=== PATIENT | female | born 1930 | race Caucasian/White ===

== ENCOUNTER 2019-03-19 19:09 | Inpatient (IN) | payer MEDICARE, OTHER ==
[~2019-03-19] VITALS: Ht 154.9 cm; Wt 62.1 kg
[2019-03-19 19:30] VITALS: BP 161/84
[2019-03-19] MEDS ORDERED: MAG HYDROX/AL HYDROX/SIMETH 30 ML ORAL.SUSP PO PRN (19:45)
[2019-03-19] MEDS ORDERED: MAGNESIUM HYDROXIDE 2,400 MG/30 ML ORAL.SUSP. PO PRN (19:45)
[2019-03-19] MEDS ORDERED: METHYL SALICYLATE/MENTHOL TOPICAL OINTMENT 57GM TUBE. TP PRN (19:45)
[2019-03-19 21:35] LABS: BASO % 1 % (0-3); EOS # 0.1 x10^3/uL (0.0-0.7); EOS % 1 % (0-3); HEMATOCRIT 37.9 % (36.0-47.0); HEMOGLOBIN 12.5 g/dL (12.0-15.5); LYMPH # 0.8 x10^3/uL (1.0-4.8); LYMPH % 15 % (24-48); MEAN CORPUSCULAR HEMOGLOBIN 32 pg (25-35); MEAN CORPUSCULAR HGB CONC 33 g/dL (31-37); MEAN CORPUSCULAR VOLUME 97 fL (79-100); MONO # 0.4 x10^3/uL (0.0-1.1); MONO % 9 % (0-9); NEUT % 75 % (31-73); PLATELET COUNT 248 x10^3/uL (140-400); RED BLOOD COUNT 3.89 x10^6/uL (3.50-5.40); RED CELL DISTRIBUTION WIDTH 13.8 % (11.5-14.5); WHITE BLOOD COUNT 5.3 x10^3/uL (4.0-11.0)
[2019-03-19 21:42] LABS: ALBUMIN 3.8 g/dL (3.4-5.0); CALCIUM 9.3 mg/dL (8.5-10.1); CREATININE 0.9 mg/dL (0.6-1.0); GFR 59.1; MAGNESIUM 2.1 mg/dL (1.8-2.4); POTASSIUM 3.5 mmol/L (3.5-5.1); TOTAL BILIRUBIN 0.4 mg/dL (0.2-1.0); TOTAL PROTEIN 7.5 g/dL (6.4-8.2)
[2019-03-19] MEDS ORDERED: MEMA10TA PO (21:46)
[2019-03-19] MEDS ORDERED: GLUC-11 PO (21:46)
[2019-03-19] MEDS ORDERED: MELA1TAB9 PO (21:46)
[2019-03-19] MEDS ORDERED: OXYB5TAB10 PO (21:46)
[2019-03-19] MEDS ORDERED: RIVA1PAT23 TD (21:46)
[2019-03-19] MEDS ORDERED: TEMA15CA PO (21:46)
[2019-03-19] MEDS ORDERED: OLAN5TAB5 PO (21:46)
[2019-03-19] MEDS ORDERED: CALC-497 PO (21:46)
[2019-03-19] MEDS ORDERED: CRESTOR5 MG PO (21:46)
[2019-03-19] MEDS ORDERED: CHOL200027 PO (21:46)
[2019-03-19] MEDS ORDERED: MV-M1TAB54 PO (21:46)
[2019-03-19] MEDS ORDERED: AMLO5TAB10 PO (21:46)
[2019-03-19] MEDS ORDERED: ASPI325T8 PO (21:46)
[2019-03-19] MEDS ORDERED: OXYB10TA7 PO (21:47)
--- NOTE | 2019-03-19 21:50 | PDOC ---
Exam Note: Sony Note: Please also refer to the separate dictated note~for this date of service dictated separately. Discussed the patient with Nursing staff reviewed the chart.~Reviewed interim history and current functioning. Reviewed vital signs,~Labs/ Radiology~and current medications noted below. Continue current treatment with the changes noted in the dictated addendum note Assessment: Labs: Laboratory Tests Test 03/19/19 21:15 White Blood Count 5.3 x10^3/uL (4.0-11.0) Red Blood Count 3.89 x10^6/uL (3.50-5.40) Hemoglobin 12.5 g/dL (12.0-15.5) Hematocrit 37.9 % (36.0-47.0) Mean Corpuscular Volume 97 fL (79-100) Mean Corpuscular Hemoglobin 32 pg (25-35) Mean Corpuscular Hemoglobin Concent 33 g/dL (31-37) Red Cell Distribution Width 13.8 % (11.5-14.5) Platelet Count 248 x10^3/uL (140-400) Neutrophils (%) (Auto) 75 % (31-73) H Lymphocytes (%) (Auto) 15 % (24-48) L Monocytes (%) (Auto) 9 % (0-9) Eosinophils (%) (Auto) 1 % (0-3) Basophils (%) (Auto) 1 % (0-3) Neutrophils # (Auto) 4.0 x10^3uL (1.8-7.7) Lymphocytes # (Auto) 0.8 x10^3/uL (1.0-4.8) L Monocytes # (Auto) 0.4 x10^3/uL (0.0-1.1) Eosinophils # (Auto) 0.1 x10^3/uL (0.0-0.7) Basophils # (Auto) 0.0 x10^3/uL (0.0-0.2) Sodium Level 140 mmol/L (136-145) Potassium Level 3.5 mmol/L (3.5-5.1) Chloride Level 100 mmol/L (98-107) Carbon Dioxide Level 27 mmol/L (21-32) Anion Gap 13 (6-14) Blood Urea Nitrogen 19 mg/dL (7-20) Creatinine 0.9 mg/dL (0.6-1.0) Estimated GFR (Cockcroft-Gault) 59.1 BUN/Creatinine Ratio 21 (6-20) H Glucose Level 134 mg/dL (70-99) H Calcium Level 9.3 mg/dL (8.5-10.1) Magnesium Level 2.1 mg/dL (1.8-2.4) Total Bilirubin 0.4 mg/dL (0.2-1.0) Aspartate Amino Transferase (AST) 19 U/L (15-37) Alanine Aminotransferase (ALT) 24 U/L (14-59) Alkaline Phosphatase 81 U/L (46-116) Total Protein 7.5 g/dL (6.4-8.2) Albumin 3.8 g/dL (3.4-5.0) Albumin/Globulin Ratio 1.0 (1.0-1.7) Current Medications: I have reviewed the current psychotropics carefully including drug interactions. Risk benefit ratio favors no change other than as noted in my dictated progress note. HECTOR AL MD Mar 19, 2019 21:50
[2019-03-19] MEDS ORDERED: SERT25TA PO (21:51)
[2019-03-19] MEDS: GLUCOSAMINE/CHOND 500/400MG CAPSULE PO SCH (22:30)
[2019-03-19] MEDS: MEMANTINE 10 MG TABLET. PO SCH (22:30)
[2019-03-19] MEDS: TEMAZEPAM 7.5 MG CAPSULE PO SCH (22:49)
[2019-03-19] MEDS: MELATONIN 3 MG TABLET PO SCH (22:49)
[2019-03-19] MEDS: traZODone 50 MG TABLET. PO PRN (22:49)
[2019-03-20] MEDS: traZODone 50 MG TABLET. PO PRN
--- NOTE | 2019-03-20 | NUR ---
Admission Note with Justification for Admission to [facility] Patient admitted to [facility] for protective oversight for emergency stabilization of acute psychiatric crisis. Pt admitted from: Hospital ER Mode of arrival: EMS Accompanied By: EMS Precipitating behaviors that initiated intake and admission:Living at independent living apartment, threatening SI, panic attacks, severe anxiety, recent of a friend, agitation and impulsive. Description of failure of out patient attempts at stabilization in previous setting list behavior and medication trials:Med adjustments family involvement. Behaviors and assessment findings upon admission: Severe anxiety yelling constantly and crying out of control. PRNS ordered and given soon after admission. Non redirectable. Plan: Admit for protective oversight for adjustment and stabilization of medications, behaviors and mood. Intense treatment regimen including groups, medication adjustments, therapy, consistent regimen for ADL's, self care, and sleep hygiene. Daily monitoring by Inpatient staff, Psychiatry, and Medical Physician.
[2019-03-20 06:33] VITALS: BP 115/70
[2019-03-20] MEDS: CALCIUM CARB/VIT D3 500/200 TABLET PO SCH (08:49)
[2019-03-20] MEDS: MEMANTINE 10 MG TABLET. PO SCH ×2 (08:49→20:16)
[2019-03-20] MEDS: MULTIVITAMIN with MINERAL TABLET. PO SCH (08:49)
[2019-03-20] MEDS: CHOLECALCIFEROL (VITAMIN D3) 1,000 UNIT TABLET PO SCH (08:50)
[2019-03-20] MEDS: SERTRALINE 25 MG TABLET. PO SCH (08:50)
[2019-03-20] MEDS: GLUCOSAMINE/CHOND 500/400MG CAPSULE PO SCH ×2 (08:50→20:16)
[2019-03-20] MEDS: ASPIRIN 325 MG TABLET PO SCH (08:50)
[2019-03-20] MEDS: OXYBUTYNIN CHLORIDE 5 MG TABLET PO SCH ×2 (08:51→20:16)
[2019-03-20] MEDS: ATORVASTATIN CALCIUM 20 MG TABLET PO SCH (08:51)
[2019-03-20] MEDS: RIVASTIGMINE 9.5MG PATCH. TD SCH (08:51)
[2019-03-20] MEDS: amLODIPine BESYLATE 5 MG TABLET PO SCH (08:51)
--- NOTE | 2019-03-20 10:54 | NUR ---
Nursing note: Pt in dining room for morning meds and assessment. She was compliant with her meds whole and cooperative with her assessment. Her only complaint is of feeling tired, but when asked, she stated she slept very well and wanted to know what kind of sleeping medication she got to make her sleep so well. Pt is preoccupied about her sleeping schedule and wanting to know what meds she is taking that are causing her to be so tired during the day. She is currently in the day room. Will continue to monitor.
--- NOTE | 2019-03-20 13:00 | NUR ---
Social work student (SWS) and pt spent 1.5 hours today on her psychosocial assessment (PSA) and addressing her requests. Before we could start on the PSA, pt was was concerned about her dentures and the hospital-issued walker. She wanted her daughter to bring her personal walker because she "didn't feel stable with this walker." SWS needed to direct pt's walker so that she did not run into the right wall--pt's and walker tended to curve towards the right when walking. Pt was particularly concerned about cleaning her dentures and SWS assisted her with getting all the cleaning materials needed. Pt appeared confused at times about the order to clean the dentures and would often repeat steps. Lastly, after both the upper and lower dentures were back in her mouth, pt asked, "Now, where are my uppers?"
[2019-03-20 13:30] LABS: THYROID STIM HORMONE (TSH) 3.385 uIU/mL (0.358-3.740)
--- NOTE | 2019-03-20 15:00 | NUR ---
SW and SWS electrical engineering intern contacted Marika at [facility] to discuss pt and pt reports. Pt reported that she wasn't going back to [facility] because "she kept threatening to hurt herself". Marika reports that she feels that pt has depression but also has Dementia. Marika reports that pt dtr has been overheard being mean to pt and making "empty threats" as a means to get her to straighten up her behaviors. Marika reports that pt dtr has notes all over the room as reminders but then pt doesn't remember what they are for. Pt was in the front office and in the dining room having a "nervous breakdown". It has gotten to the point that they had to have pt sent out for evaluation. It appears that pt dtr may need to have some education on what is appropriate to discuss with pt and the manner she discusses it. Marika reports that pt may need a higher level of care as they are [place] and cannot handle those behaviors. If pt does come back to [facility], pt dtr will need to hire other help in order to ensure pt safety and medication management as those are not available services for [place]. SW and ROBYN will continue to update [facility] during pt stay.
--- NOTE | 2019-03-20 15:32 | NUR ---
SW and SWS improvement intern left a message for pt dtrEliseo to contact SW back when available to finalize PSA and to discuss discharge options.
[2019-03-20 15:34] VITALS: BP 108/69
[2019-03-20] MEDS: MELATONIN 3 MG TABLET PO SCH (20:16)
[2019-03-20] MEDS: TEMAZEPAM 7.5 MG CAPSULE PO SCH (20:16)
--- NOTE | 2019-03-20 21:51 | PDOC ---
Exam Note: Sony Note: Please also refer to the separate dictated note~for this date of service dictated separately.~Patient seen individually. Discussed the patient with Nursing staff reviewed the chart.~Reviewed interim history and current functioning. Reviewed vital signs,~Labs/ Radiology~and current medications noted below. Continue current treatment with the changes noted in the dictated addendum note Assessment: Vital Signs/I&O: Vital Signs Date Time Temp Pulse Resp B/P (MAP) Pulse Ox O2 Delivery O2 Flow Rate FiO2 03/20/19 15:34 97.8 80 18 108/69 (82) 96 I & O 03/19/19 03/19/19 03/20/19 15:00 23:00 07:00 Intake Total 400 ml Balance 400 ml Current Medications: Meds: Current Medications Medications (Trade) Dose Ordered Sig/Mickey Route PRN Reason Start Time Stop Time Status Last Admin Dose Admin Memantine (Namenda) 10 mg BID PO 03/19/19 22:30 03/20/19 20:16 Olanzapine (ZyPREXA ZYDIS) 2.5 mg DAILY PO 03/20/19 09:00 03/20/19 08:51 Rivastigmine (Exelon) 1 patch DAILY TD 03/20/19 09:00 03/20/19 08:51 Sertraline HCl (Zoloft) 25 mg DAILY PO 03/20/19 09:00 03/20/19 08:50 Temazepam (Restoril) 22.5 mg QHS PO 03/19/19 22:30 03/20/19 20:16 Melatonin (Melatonin) 6 mg HS PO 03/19/19 22:30 03/20/19 20:16 Amlodipine Besylate (Norvasc) 5 mg DAILY PO 03/20/19 09:00 03/20/19 08:51 Aspirin (Douglas Aspirin) 325 mg DAILY PO 03/20/19 09:00 03/20/19 08:50 Calcium/Vitamin D (Oscal D 500mg/ 200uts) 1 tab DAILY PO 03/20/19 09:00 03/20/19 08:49 Vitamin D (Vitamin D3) 2,000 unit DAILY PO 03/20/19 09:00 03/20/19 08:50 Glucosamine/ Chondroitin (Glucosamine-Chondroitin 500/400mg) 1 cap BID PO 03/19/19 22:30 03/20/19 20:16 Multivitamins/ Calcium (Thera-M Plus) 1 tab DAILY PO 03/20/19 09:00 03/20/19 08:49 Oxybutynin Chloride (Ditropan) 5 mg BID PO 03/20/19 09:00 03/20/19 20:16 Atorvastatin Calcium (Lipitor) 20 mg DAILY PO 03/20/19 09:00 03/20/19 08:51 Olanzapine (ZyPREXA ZYDIS) 2.5 mg PRN Q2HR PRN PO PSYCHOSIS 03/19/19 22:15 03/19/19 22:49 Trazodone HCl (Desyrel) 50 mg PRN QHS PRN PO INSOMNIA, MAY REPEAT X1 03/19/19 22:15 03/20/19 00:00 I have reviewed the current psychotropics carefully including drug interactions. Risk benefit ratio favors no change other than as noted in my dictated progress note. HECTOR AL MD Mar 20, 2019 21:51
[2019-03-20 23:07] LABS: HEMOGLOBIN A1C 5.1 % (4.8-5.6); THYROXINE 7.4 ug/dL (4.5-12.0)
--- NOTE | 2019-03-21 01:38 | NUR ---
Nursing Note The patient was very pleasant during interactions with this nurse. The patient was curious about her medications but was compliant and was able to take them whole. 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 The patient is currently sleeping in her room.
--- NOTE | 2019-03-21 04:38 | CONS ---
DATE OF CONSULTATION: 03/20/2019 REASON FOR CONSULTATION: Medical management. HISTORY OF PRESENT ILLNESS: The patient is an 89-year-old female patient, a resident at [facility], who was seen at the [facility] Emergency Room and was [facility] with extreme anxiety, insomnia, increasing agitation, yelling out, being irritable; all this in a background of bipolar, mixed with mild cognitive impairment. PAST MEDICAL HISTORY: Significant for hyperlipidemia, hypertension, and generalized osteoarthritis. She has also vitamin D deficiency and overactive bladder. PAST SURGICAL HISTORY: Significant for bilateral cataract extraction. FAMILY HISTORY: Noncontributory. SOCIAL HISTORY: She is a resident at [facility]. She does not smoke, drinks wine occasionally. She has 3 sons and 1 daughter. 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 ALLERGIES: She is allergic to OPIOIDS AND MORPHINE ANALOGS AND RIVASTIGMINE. MEDICATIONS: She is currently on following medications; she is on rivastigmine (Exelon) 9.5 mg transdermal patch once a day, Crestor 5 mg daily, amlodipine 5 mg once a day, aspirin 325 mg once a day, sertraline 25 mg daily, olanzapine 2.5 mg daily, temazepam 22.5 mg at bedtime, Namenda 10 mg twice a day, calcium carbonate with vitamin D one tablet once a day, oxybutynin chloride (Ditropan XL) 10 mg once a day, cholecalciferol (vitamin D3) 2000 units p.o. daily, multivitamin 1 tablet once a day. She is on glucosamine/chondroitin sulfate 1 tablet twice a day, melatonin 5 mg at bedtime. REVIEW OF SYSTEMS: As per history of present illness. PHYSICAL EXAMINATION: GENERAL: When I examined her, she was sitting in a chair comfortably, in no apparent distress. She was cachectic. There was no pallor, jaundice, cyanosis or thyromegaly. No jugular venous distention. No limb edema. VITAL SIGNS: Her heart rate was 80, blood pressure was 108/69, temperature was 97.8, respiratory rate was 18 and oxygen saturation was 96% on room air. HEAD, EYES, EARS, NOSE AND THROAT: Showed normocephalic, atraumatic. NECK: Supple. HEART: Showed normal first and second heart sounds. No gallop, rub or murmur. CHEST: Clear to auscultation. No crepitation or rhonchi. ABDOMEN: Scaphoid, soft, nontender. NEUROLOGIC: She is demented, but without any obvious lateralizing sign. All her cranial nerves are intact. EXTREMITIES: She moves extremities without difficulty. She ambulates with a walker. LABORATORY DATA: Showed a white cell count of 5300, hemoglobin 12.5, hematocrit 38, MCV 97, platelet count 248,000 with normal manual differential. Serum sodium was 140, potassium 3.5, chloride 100, bicarbonate 27, anion gap of 13, BUN 19, creatinine 0.9. Estimated GFR was 59 mL per minute. Her glucose was 134, calcium was 9.3, magnesium was 2.1. Serum iron, TIBC and iron saturation were all low, consistent with anemia of chronic disease. Her total bilirubin, AST, ALT, alkaline phosphatase were normal. Total protein was 7.5, albumin was 3.8. Serum triglycerides were 55, total cholesterol 178, LDL was 88, VLDL was 11, and HDL cholesterol was 79 and cholesterol to HDL cholesterol ratio was only 2. Her vitamin B12 was 959 pg, 25-hydroxyvitamin D was high at 57.5 and TSH was normal at 3.385. Her treponema pallidum antibodies were nonreactive. IMPRESSION: In summary, this is an 89-year-old female patient, a resident at [facility], who was apparently evaluated at [facility] and was admitted to this facility on account of being extremely anxious, yelling out, irritable, agitated and had insomnia; all this in a background of bipolar, mixed with mild cognitive impairment. Medically, she seems to be stable. All her vital signs are within acceptable range. Her lab works are also within normal range. PLAN: My plan is to obviously follow all the lab works that are still pending at the time of this dictation, and make any necessary recommendation. Thank you, Dr. Ruelas, for allowing me to participate in the care of this patient. DAKSHA NLOEN MD DR: JCARLOS/angelic JOB#: [id number] / [id number]
[2019-03-21 05:52] VITALS: BP 134/67
[2019-03-21 07:00] LABS: BILIRUBIN,URINE NEG (NEG); CLARITY,URINE CLOUDY; COLOR,URINE YELLOW; GLUCOSE,URINE NEG (NEG); NITRITE,URINE NEG (NEG); UROBILINOGEN,URINE 0.2 mg/dL (0.2 mg/dL)
[2019-03-21 07:01] LABS: BACTERIA,URINE MANY /HPF (0-FEW); RBC,URINE OCC /HPF (0-2); SQUAMOUS EPITHELIAL CELL,UR FEW /LPF; WBC,URINE >40 /HPF (0-4)
[2019-03-21] MEDS: OXYBUTYNIN CHLORIDE 5 MG TABLET PO SCH ×2 (08:31→19:46)
[2019-03-21] MEDS: ATORVASTATIN CALCIUM 20 MG TABLET PO SCH (08:31)
[2019-03-21] MEDS: MEMANTINE 10 MG TABLET. PO SCH ×2 (08:31→19:46)
[2019-03-21] MEDS: CHOLECALCIFEROL (VITAMIN D3) 1,000 UNIT TABLET PO SCH (08:32)
[2019-03-21] MEDS: ASPIRIN 325 MG TABLET PO SCH (08:32)
[2019-03-21] MEDS: RIVASTIGMINE 9.5MG PATCH. TD SCH (08:32)
[2019-03-21] MEDS: MULTIVITAMIN with MINERAL TABLET. PO SCH (08:32)
[2019-03-21] MEDS: amLODIPine BESYLATE 5 MG TABLET PO SCH (08:32)
[2019-03-21] MEDS: SERTRALINE 25 MG TABLET. PO SCH (08:32)
[2019-03-21] MEDS: GLUCOSAMINE/CHOND 500/400MG CAPSULE PO SCH ×2 (08:32→19:45)
[2019-03-21] MEDS: CALCIUM CARB/VIT D3 500/200 TABLET PO SCH (08:32)
--- NOTE | 2019-03-21 09:31 | NUR ---
Patient is alert and oriented x 1-2. Pt knows own name. When asked where she was, she stated "care center". Pt knew the month but thought the year was 1950. Patient very anxious, tearful and fearful at breakfast. When talking with the defect cutter this morning, started crying. States she is very sleepy and afraid we wont let her eat. Fearful that we won't wake her if she sleeps for meals. Patient repeatedly reassured that we would wake her for meals and show her where to go, but patient kept coming back to this fear and crying. Patient did take her medications whole. Patient kept asking for a 3rd hot cocoa, staff trying to encourage her to drink her chocolate ensure but patient states, "Im too full! Ill throw up!" But continues to ask for another hot cocoa. Patient is using a walker to wheel self around unit, needs supervision with transferring. Pt has poor judgement and insight. Plan is to work with Dr Ruelas for medication management, provide emotional support and safe environment, and encourage group participation.
--- NOTE | 2019-03-21 12:45 | NUR ---
SW noted that pt dtr was here for the visiting hour. SW stopped pt and pt dtr, Eliseo, in the hallway and introduced self. Pt dtr and SW agreed that they would need to talk to one another; however, SW was headed out to have a supervision meeting with the SWS civil engineering intern. SW and pt dtr will plan on talking either later this afternoon, if not tomorrow morning.
[2019-03-21 15:52] VITALS: BP 147/77
--- NOTE | 2019-03-21 16:18 | NUR ---
RN spoke with patients daughter about patient being upset and tearful at breakfast. Patients daughter stated, "Oh I know! We've been dealing with this for years!" This afternoon patient began obsessing and getting tearful about her sleeping pill tonight. Frequently knocking on window to nursing station to tell RN that she wanted her medication at 15 til 10. Then became upset and said "I want it at 10!, repeatedly. Then started saying, "Please don't let me refuse it!!!" At one point patient said, "Im having a full blown panic attack. Pt given PRN zyprexa. 15 minutes later patient said, "I shouldn't have taken that pill!" About 30-40 minutes later, pt began crying saying, "I did it to myself, I shouldn't have taken that pill. Im too sleepy." Pt taken to her room and told that this RN would wake her for dinner.
--- NOTE | 2019-03-21 16:53 | HP ---
ADMIT DATE: 03/20/2019 PSYCHIATRIC ADMISSION HISTORY AND EVALUATION This late entry date of service 03/20/2019 covers elements not covered in my initial note of 03/20/2019. IDENTIFYING DATA: The patient is an 89-year-old female, referred to us from the Emergency Room at [facility] where she presented after making threats of wanting to jump out from a moving car or slit her wrist to end her life. Reportedly, she has been increasingly depressed with low energy, having panic attacks. She had a recent of a close friend, has been increasingly agitated, impulsive. She is not eating well and losing weight. She has failed outpatient psychiatric interventions including treatment on olanzapine and Zoloft. She has been treated outpatient at [facility] for psychiatric and medication management and psychotherapy and has failed all of this and referred for inpatient psychiatric stabilization. She had a previous history of suicide attempt by slashing her wrists about 2 weeks earlier. CHIEF COMPLAINT: "Yes, I have been depressed. I get anxious. I am getting more forgetful." HISTORY OF PRESENT ILLNESS: The patient resides at [facility] and goes to her regular outpatient psychiatric appointments. She has been getting increasingly depressed, feeling helpless, hopeless, worthless with marked panic and anxiety attacks, sleep and appetite disturbance with progressive weight loss and worsening short term memory deficits. She has had the suicidal ideation with plans, attempts as noted above. She has also had a history of mood swings and a prior diagnosis of bipolar disorder. PAST PSYCHIATRIC HISTORY: As above. MEDICAL HISTORY: Positive for hypertension. DIET: Regular. ACCU-CHEKS: None. CODE STATUS: DNR. ALLERGIES: EXELON ORAL TABLETS, NARCOTIC ANALGESICS. Ambulates with walker. CURRENT PSYCHOTROPICS: Zyprexa 2.5 mg daily, Exelon patch 9.5 mg daily, temazepam 22.5 mg at bedtime, Namenda 10 mg b.i.d. FAMILY HISTORY: Noncontributory. SOCIAL HISTORY: No history of alcohol, drug abuse, physical, sexual or elder abuse. She is not known to be a perpetrator. REACTION TO HOSPITALIZATION: The patient is accepting of it. ASSETS: Supportive family, stable living at the [facility]. REVIEW OF SYSTEMS: Ambulation impaired with walker. No CV, , pulmonary, eye system symptoms on review. MENTAL STATUS EXAMINATION: Oriented to herself and situation. She knew the year was 2019, president was president Emma, but unable to remember who was the president before him. She was unable to do serial 7's, has been anxious, tearful. Mood is depressed. Affect is mood congruent. She is also quite obsessive about her sleep disturbance and getting something to help her sleep. Attention span is short. Language function intact. No active suicidal or homicidal ideation. LABORATORY DATA: Reviewed. IMPRESSION: Major depressive disorder, recurrent; panic disorder; mild cognitive impairment versus major neurocognitive disorder; early vascular with depression; bipolar disorder, depressed. Rest as above. PLAN: Admit to Geropsychiatry Unit at [facility]. I will see the patient daily individually from a psychiatric standpoint. Medical followup by tyson Donovan. Continue patient on her current psychotropics. I was called the night of 03/19/2019 after I discussed with the patient with Jessica Corbin, study abroad coordinator, prior to that. After the patient arrived to the unit, she was extremely anxious, restless, obsessed about her sleep patterns. We did add trazodone 50 mg at bedtime p.r.n. x 1, may repeat x 1 if ineffective; and also Zyprexa 2.5 mg q. 2 hours p.r.n. psychosis, agitation, max 15 mg in 24 hours. We will make further adjustments in psychotropics as clinically indicated. ESTIMATED LENGTH OF STAY: 10-12 days. DISPOSITION: Plans back to independent living or she may perhaps need transition to assisted living. HECTOR AL MD DR: RENO/angelic JOB#: [id number] / [id number]
--- NOTE | 2019-03-21 17:54 | NUR ---
Patient had a box of exelon patches here that were hers from home. They were not on the inventory sheet, however were clearly marked as this patients. They were returned to patients daughter today when daughter was visiting during lunch, daughter took them home.
--- NOTE | 2019-03-21 18:02 | NUR ---
RN noticed a bone protruding on patients left shoulder. It appears to be collar bone, pt is moving arm just fine, states it doesn't hurt. Did have Dr Donovan to look at it, per Dr Donovan its an old healed fracture.
[2019-03-21] MEDS: MELATONIN 3 MG TABLET PO SCH (19:46)
--- NOTE | 2019-03-21 21:25 | PDOC ---
Exam Note: Sony Note: Please also refer to the separate dictated note~for this date of service dictated separately.~Patient seen individually. Discussed the patient with Nursing staff reviewed the chart.~Reviewed interim history and current functioning. Reviewed vital signs,~Labs/ Radiology~and current medications noted below. Continue current treatment with the changes noted in the dictated addendum note Assessment: Vital Signs/I&O: Vital Signs Date Time Temp Pulse Resp B/P (MAP) Pulse Ox O2 Delivery O2 Flow Rate FiO2 03/21/19 15:52 97.2 85 22 147/77 (100) 98 Room Air I & O 03/20/19 03/20/19 03/21/19 15:00 23:00 07:00 Intake Total 600 ml 340 ml Balance 600 ml 340 ml Labs: Laboratory Tests Test 03/21/19 06:07 Urine Collection Type Unknown Urine Color Yellow Urine Clarity Cloudy Urine pH 7.0 Urine Specific [place] 1.010 Urine Protein Neg (NEG-TRACE) Urine Glucose (UA) Neg mg/dL (NEG) Urine Ketones (Stick) Neg mg/dL (NEG) Urine Blood Neg (NEG) Urine Nitrite Neg (NEG) Urine Bilirubin Neg (NEG) Urine Urobilinogen Dipstick 0.2 mg/dL (0.2 mg/dL) Urine Leukocyte Esterase Small (NEG) Urine RBC Occ /HPF (0-2) Urine WBC >40 /HPF (0-4) Urine Squamous Epithelial Cells Few /LPF Urine Transitional Epithelial Cells Occ /LPF Urine Bacteria Many /HPF (0-FEW) Current Medications: I have reviewed the current psychotropics carefully including drug interactions. Risk benefit ratio favors no change other than as noted in my dictated progress note. Diagnosis: Problems: (1) Mild cognitive disorder (2) Dementia, vascular, with depression (3) Major depressive disorder, recurrent episode (4) Bipolar disorder with depression (5) Major neurocognitive disorder HECTOR AL MD Mar 21, 2019 21:25
[2019-03-22] MEDS: traZODone 50 MG TABLET. PO PRN (00:22)
--- NOTE | 2019-03-22 01:58 | NUR ---
Pt has been very labile this shift. She says she reports having anxiety and becomes tearful at times then quiets and goes to sleep. When awake she reports not having been able to sleep. She was cooperative with meds taken whole, PRN trazodone given at 0030.
[2019-03-22 06:22] VITALS: BP 154/74
[2019-03-22] MEDS: CALCIUM CARB/VIT D3 500/200 TABLET PO SCH (08:30)
[2019-03-22] MEDS: MEMANTINE 10 MG TABLET. PO SCH ×2 (08:30→20:18)
[2019-03-22] MEDS: RIVASTIGMINE 9.5MG PATCH. TD SCH (08:31)
[2019-03-22] MEDS: MULTIVITAMIN with MINERAL TABLET. PO SCH (08:31)
[2019-03-22] MEDS: GLUCOSAMINE/CHOND 500/400MG CAPSULE PO SCH ×2 (08:31→20:18)
[2019-03-22] MEDS: amLODIPine BESYLATE 5 MG TABLET PO SCH (08:31)
[2019-03-22] MEDS: ASPIRIN 325 MG TABLET PO SCH (08:31)
[2019-03-22] MEDS: ATORVASTATIN CALCIUM 20 MG TABLET PO SCH (08:31)
[2019-03-22] MEDS: SERTRALINE 25 MG TABLET. PO SCH (08:31)
[2019-03-22] MEDS: CHOLECALCIFEROL (VITAMIN D3) 1,000 UNIT TABLET PO SCH (08:31)
[2019-03-22] MEDS: OXYBUTYNIN CHLORIDE 5 MG TABLET PO SCH ×2 (08:31→20:18)
[2019-03-22 15:36] VITALS: BP 142/79
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
--- NOTE | 2019-03-22 18:34 | NUR ---
Pt up for meals. Was very anxious and voiced several times she was tired because of the sleeping pill she got with breakfast. Dtr here at lunch and was able to keep pt focused on current conversations. Prior to supper pt was becoming more anxious. Stated she felt "like her head was spinning." Pt redirected to Day room .
--- NOTE | 2019-03-22 19:15 | PN ---
DATE: 03/21/2019 PSYCHIATRIC PROGRESS NOTE This late entry 03/21/2019 covers elements not covered in my initial note. SUBJECTIVE: I met with the patient evening of 03/21/2019 and staffed at a treatment team meeting with the entire team in the morning. The patient is sleeping about 7 hours average. Appetite 75%. She has been anxious, tearful, quite labile in her mood, obsessive and depressed. On checking on orientation, she knew the year was 2019, president was president Emma. She did better in the evening. At one point, she was hallucinating at the front desk supervisor, screaming, crying. REVIEW OF SYSTEMS: Positive for impaired ambulation with walker. No CV, , pulmonary, eye, ENT system symptoms on review. MENTAL STATUS EXAM: The patient is oriented to herself and situation. Speech has some latency, coherent, can be pressured at times. Abstraction fair, computation impaired, language function intact, attention span short. Mood and affect remains anxious, labile. She is depressed, quite labile in her mood. LABORATORY DATA: Reviewed. IMPRESSION: Bipolar disorder, mixed with psychotic features; mild cognitive impairment; psychotic disorder, unspecified. PLAN: Continue current psychotropics; trazodone 50 mg at bedtime p.r.n., may repeat x 1; Namenda, Zyprexa which has been increased and Exelon patch. May consider a mood stabilizer, Depakote, depending on how she does with the initial changes. HECTOR AL MD DR: RENO/angelic JOB#: [id number] / [id number]
[2019-03-22] MEDS: MELATONIN 3 MG TABLET PO SCH ×2 (20:18→21:00)
--- NOTE | 2019-03-22 21:26 | PDOC ---
Exam Note: Sony Note: Please also refer to the separate dictated note~for this date of service dictated separately.~Patient seen individually. Discussed the patient with Nursing staff reviewed the chart.~Reviewed interim history and current functioning. Reviewed vital signs,~Labs/ Radiology~and current medications noted below. Continue current treatment with the changes noted in the dictated addendum note Assessment: Vital Signs/I&O: Vital Signs Date Time Temp Pulse Resp B/P (MAP) Pulse Ox O2 Delivery O2 Flow Rate FiO2 03/22/19 15:36 97.0 69 20 142/79 (100) 97 03/21/19 15:52 Room Air I & O 03/21/19 03/21/19 03/22/19 15:00 23:00 07:00 Intake Total 840 ml 240 ml 240 ml Balance 840 ml 240 ml 240 ml Current Medications: I have reviewed the current psychotropics carefully including drug interactions. Risk benefit ratio favors no change other than as noted in my dictated progress note. Diagnosis: Problems: (1) Major depressive disorder, recurrent episode (2) Mild cognitive disorder (3) Dementia, vascular, with depression (4) Bipolar disorder with depression (5) Major neurocognitive disorder HECTOR AL MD Mar 22, 2019 21:26
--- NOTE | 2019-03-22 23:51 | NUR ---
Patient is in the day room on assumption of care. She is pleasant and polite, but anxious about pills. She asked this scenario writer to tell her the name of each one and what they were for. She states "I don't want to get dizzy, these pills make me dizzy." This scenario writer assured her that none of the pills she was getting at that time would cause her to be dizzy, and offered to hold off on giving her the Melatonin until she was on her way to bed. She agreed. She was compliant with assessments. She spent the evening in the day room, watching a movie with some peers. After the movie was over, she went to her room and fell asleep quickly. Melatonin was held since patient was already asleep. No agitation. Denies any pain or discomfort. Denies SI.
[2019-03-23 05:17] VITALS: BP 146/77
[2019-03-23] MEDS: GLUCOSAMINE/CHOND 500/400MG CAPSULE PO SCH ×2 (08:53→19:57)
[2019-03-23] MEDS: OXYBUTYNIN CHLORIDE 5 MG TABLET PO SCH ×2 (08:53→19:57)
[2019-03-23] MEDS: amLODIPine BESYLATE 5 MG TABLET PO SCH (08:53)
[2019-03-23] MEDS: CALCIUM CARB/VIT D3 500/200 TABLET PO SCH (08:53)
[2019-03-23] MEDS: CHOLECALCIFEROL (VITAMIN D3) 1,000 UNIT TABLET PO SCH (08:54)
[2019-03-23] MEDS: MULTIVITAMIN with MINERAL TABLET. PO SCH (08:54)
[2019-03-23] MEDS: ASPIRIN 325 MG TABLET PO SCH (08:54)
[2019-03-23] MEDS: MEMANTINE 10 MG TABLET. PO SCH ×2 (08:55→19:57)
[2019-03-23] MEDS: RIVASTIGMINE 9.5MG PATCH. TD SCH (08:55)
[2019-03-23] MEDS: SERTRALINE 25 MG TABLET. PO SCH (08:55)
[2019-03-23] MEDS: ATORVASTATIN CALCIUM 20 MG TABLET PO SCH (08:55)
--- NOTE | 2019-03-23 10:34 | NUR ---
Patient compliant with medications and assessment. Patient confused believing she has not been receiving her medications for the last week. Patient reassured that she will be receiving all her medications today and during her stay here. Patient is attempting to stay awake all day until 10pm so she may get a full nights rest. Patient has no further needs at this time.
--- NOTE | 2019-03-23 11:56 | NUR ---
Activity Therapy Assessment Completed based on notes. observation, and interview. Pt. was in the day room when therapist approached. Pt. was calm, polite, and labile in her mood. Pt. uses a walker to ambulate, wears glasses, and speaks in full, clear sentences. Pt. is a strong historian: she was able to talk about her childhood, meeting her , and her four children with ease. Pt. short term memory is more limited- she needed frequent reminders and redirection to focus on the conversation at hand. Pt. often reverts to her many anxieties: her medication, getting home, calling her daughter, etc. Pt. easily redirects from these topics and calms when asked about the past. Pt. is aware she is not home and is able to state she lives at [facility] in [place]. 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 Pt. enjoys coloring, exercise groups, swimming, bowling, movies, Bingo, and attends jewish often. Pt. is often around group and engages well with some reminders and reassurance from staff and therapist. Initial goal aimed to reduce stress and increase engagement: Pt. will participate in at least five Activity Therapy groups per week. Addendum: 04/04/19 at 1048 by EMA HELLER ACT Goal changed 04/04: Pt. will participate in at least one Activity Therapy group per day
[2019-03-23 15:06] VITALS: BP 158/81
[2019-03-23] MEDS: MELATONIN 3 MG TABLET PO SCH (19:57)
--- NOTE | 2019-03-24 00:10 | PN ---
DATE: 03/23/2019 SUBJECTIVE: The patient was seen today, met with the staff, chart reviewed. Also, covering for Dr. Ruelas. Staff reports no major problems. The patient's complaints of stomach problems. The patient mainly complaining of feeling tired and weak and not able to concentrate. CURRENT MEDICATIONS: The patient's current medications include Zoloft 25 mg daily, Exelon patch daily, olanzapine 2.5 mg daily, melatonin 6 mg daily and also Namenda 10 mg b.i.d., trazodone 50 mg at night p.r.n., also olanzapine 2.5 mg q. 2 hours p.r.n. LABORATORY DATA: The patient's lab reviewed. ASSESSMENT: Major depressive disorder, recurrent; generalized anxiety disorder with panic attacks; mild cognitive disorder. JENNIFER ORTIZ MD DR: ALESSANDRA/angelic JOB#: [id number] / [id number]
--- NOTE | 2019-03-24 00:25 | NUR ---
Last evening pt was social with peer and sat in day room and watched a movie. She was cooperative with meds and has been pleasant and cooperative. No agitation or anxiety observed.
[2019-03-24 05:07] VITALS: BP 155/69
[2019-03-24] MEDS: MULTIVITAMIN with MINERAL TABLET. PO SCH (08:43)
[2019-03-24] MEDS: GLUCOSAMINE/CHOND 500/400MG CAPSULE PO SCH ×2 (08:43→20:11)
[2019-03-24] MEDS: CALCIUM CARB/VIT D3 500/200 TABLET PO SCH (08:43)
[2019-03-24] MEDS: amLODIPine BESYLATE 5 MG TABLET PO SCH (08:43)
[2019-03-24] MEDS: CHOLECALCIFEROL (VITAMIN D3) 1,000 UNIT TABLET PO SCH (08:43)
[2019-03-24] MEDS: ASPIRIN 325 MG TABLET PO SCH (08:43)
[2019-03-24] MEDS: MEMANTINE 10 MG TABLET. PO SCH ×2 (08:43→20:10)
[2019-03-24] MEDS: ATORVASTATIN CALCIUM 20 MG TABLET PO SCH (08:43)
[2019-03-24] MEDS: OXYBUTYNIN CHLORIDE 5 MG TABLET PO SCH ×2 (08:43→20:10)
[2019-03-24] MEDS: SERTRALINE 25 MG TABLET. PO SCH (08:43)
[2019-03-24] MEDS: RIVASTIGMINE 9.5MG PATCH. TD SCH (08:44)
--- NOTE | 2019-03-24 09:14 | NUR ---
Patient compliant with medications and assessment. Patient confused believing she took her sleeping pill this morning. Patient states she wants to nap since she has been up all night. Patient has no further needs at this time.
--- NOTE | 2019-03-24 13:34 | PN ---
DATE: 03/24/2019 SUBJECTIVE: The patient was seen today, met with the staff, chart reviewed. The patient's behavior remains the same, withdrawn, isolated, having problems with sleep and also feeling angry. OBSERVATION: VITAL SIGNS: Temperature 98.4, blood pressure 155/69, pulse 72, respirations 22, O2 sat 95%. The patient slept about 3-1/2 hours last night. The patient's appetite is fair. MEDICATIONS: The patient's current medications include Zoloft 25 mg daily, Exelon patch daily, olanzapine 2.5 mg daily, melatonin 6 mg daily, Namenda 10 mg b.i.d. The patient is also on p.r.n. trazodone and olanzapine. LABORATORY DATA: The patient's lab reviewed. ASSESSMENT: Major depressive disorder, recurrent, generalized anxiety disorder with panic attacks and mild cognitive disorder. PLAN: Continue with the current treatment plan. LENGTH OF STAY: 5-7 days. JENNIFER ORTIZ MD DR: ALESSANDRA/angelic JOB#: [id number] / [id number]
[2019-03-24 14:17] LABS: BASO # 0.1 x10^3/uL (0.0-0.2); BASO % 1 % (0-3); EOS # 0.1 x10^3/uL (0.0-0.7); EOS % 1 % (0-3); HEMATOCRIT 34.5 % (36.0-47.0); HEMOGLOBIN 11.5 g/dL (12.0-15.5); LYMPH # 0.7 x10^3/uL (1.0-4.8); LYMPH % 11 % (24-48); MEAN CORPUSCULAR HEMOGLOBIN 32 pg (25-35); MEAN CORPUSCULAR HGB CONC 33 g/dL (31-37); MEAN CORPUSCULAR VOLUME 97 fL (79-100); MONO # 0.5 x10^3/uL (0.0-1.1); MONO % 8 % (0-9); NEUT # 5.1 x10^3uL (1.8-7.7); NEUT % 79 % (31-73); PLATELET COUNT 245 x10^3/uL (140-400); RED BLOOD COUNT 3.56 x10^6/uL (3.50-5.40); RED CELL DISTRIBUTION WIDTH 14.4 % (11.5-14.5); WHITE BLOOD COUNT 6.5 x10^3/uL (4.0-11.0)
[2019-03-24 14:31] LABS: ALBUMIN 3.5 g/dL (3.4-5.0); ALBUMIN/GLOBULIN RATIO 1.1 (1.0-1.7); CALCIUM 9.5 mg/dL (8.5-10.1); GFR 52.3; POTASSIUM 4.1 mmol/L (3.5-5.1); TOTAL BILIRUBIN 0.2 mg/dL (0.2-1.0); TOTAL PROTEIN 6.8 g/dL (6.4-8.2)
[2019-03-24 15:20] VITALS: BP 96/59
[2019-03-24] MEDS: MELATONIN 3 MG TABLET PO SCH (21:15)
--- NOTE | 2019-03-24 22:00 | NUR ---
Patient is in the day room on assumption of care. She is calm, cooperative and compliant with medications and assessments. No agitation. Denies pain or discomfort. Denies SI.
[2019-03-25 06:41] VITALS: BP 171/73
[2019-03-25] MEDS: ASPIRIN 325 MG TABLET PO SCH (08:28)
[2019-03-25] MEDS: OXYBUTYNIN CHLORIDE 5 MG TABLET PO SCH ×2 (08:29→21:06)
[2019-03-25] MEDS: MEMANTINE 10 MG TABLET. PO SCH ×2 (08:29→21:05)
[2019-03-25] MEDS: amLODIPine BESYLATE 5 MG TABLET PO SCH (08:29)
[2019-03-25] MEDS: GLUCOSAMINE/CHOND 500/400MG CAPSULE PO SCH ×2 (08:29→21:05)
[2019-03-25] MEDS: ATORVASTATIN CALCIUM 20 MG TABLET PO SCH (08:29)
[2019-03-25] MEDS: CALCIUM CARB/VIT D3 500/200 TABLET PO SCH (08:30)
[2019-03-25] MEDS: CHOLECALCIFEROL (VITAMIN D3) 1,000 UNIT TABLET PO SCH (08:30)
[2019-03-25] MEDS: MULTIVITAMIN with MINERAL TABLET. PO SCH (08:30)
[2019-03-25] MEDS: SERTRALINE 25 MG TABLET. PO SCH (08:30)
[2019-03-25] MEDS: RIVASTIGMINE 9.5MG PATCH. TD SCH (08:30)
--- NOTE | 2019-03-25 10:56 | NUR ---
Pt is compliant with her medication and assessment. She anxious AEB pacing the halls, going in and out of her room, frequently asking to call her daughter to ask her about alarms. PRN zyprexa zydis given. No agitation or aggression at this time.
--- NOTE | 2019-03-25 13:05 | NUR ---
SELINA caught pt dtr, Eliseo, off the unit after visiting to discuss the voicemail of Eliseo wanting to participate in tx team. SELINA informed Eliseo that she could either come in person or do via phone. Eliseo reports that she is heading to [place] and believes that via phone will be best. SELINA informed her to expect a phone call between 9 and 10 AM. Pt dtr reports that the visit today did not go well as pt had a panic attack and is hopeful that continued medication changes will help get her back to where she needs to be.
[2019-03-25] MEDS: ONDANSETRON ODT 4 MG TAB.RAPDIS PO PRN (13:20)
[2019-03-25 13:23] LABS: BASO % 1 % (0-3); EOS # 0.1 x10^3/uL (0.0-0.7); EOS % 1 % (0-3); HEMATOCRIT 36.1 % (36.0-47.0); LYMPH # 0.9 x10^3/uL (1.0-4.8); LYMPH % 13 % (24-48); MEAN CORPUSCULAR HEMOGLOBIN 32 pg (25-35); MEAN CORPUSCULAR HGB CONC 33 g/dL (31-37); MEAN CORPUSCULAR VOLUME 97 fL (79-100); MONO # 0.5 x10^3/uL (0.0-1.1); MONO % 7 % (0-9); NEUT # 5.6 x10^3uL (1.8-7.7); NEUT % 78 % (31-73); PLATELET COUNT 256 x10^3/uL (140-400); RED BLOOD COUNT 3.71 x10^6/uL (3.50-5.40); RED CELL DISTRIBUTION WIDTH 14.2 % (11.5-14.5); WHITE BLOOD COUNT 7.2 x10^3/uL (4.0-11.0)
[2019-03-25 13:31] LABS: ALBUMIN 3.7 g/dL (3.4-5.0); ALBUMIN/GLOBULIN RATIO 1.1 (1.0-1.7); CALCIUM 9.5 mg/dL (8.5-10.1); CREATININE 0.8 mg/dL (0.6-1.0); GFR 67.7; POTASSIUM 4.2 mmol/L (3.5-5.1); TOTAL BILIRUBIN 0.3 mg/dL (0.2-1.0); TOTAL PROTEIN 7.2 g/dL (6.4-8.2)
--- NOTE | 2019-03-25 13:32 | NUR ---
During lunch pt began dry heaving and coughing up large amounts of thick sputum. Daughter Eliseo arrived at this time. Pt was removed from the dining room and taken to her room. While in her room pt continued to cough and dry heave, pt produced whole strawberries. VS: 125/72, 98.7, 92, 22, 95% Pt then stated "I'm having a panic attack. I'm panicking!" Nurse, BODY SHOP FLOORPERSON, and daughter coached pt through with deep breathing techniques and daughter then read a bible story to pt. Pt continues to dry heave at times. Staff and daughter talk pt through using deep breathing techniques. Dr. Donovan paged and informed of event. New orders for cbc, cmp, lactic acid, cxr, zofran 4mg q4 hours prn. Pt escorted to dayroom by daughter and needed much encouragement to use her walker and attend group.
--- NOTE | 2019-03-25 14:13 | RAD ---
PA and lateral views of the chest. Comparison: None. Indication: Possible aspiration Findings: Peripherally calcified breast implants are identified. There is cervical fusion hardware identified. Dentures appear in place. The heart size is normal. No pneumothorax or effusion. No air space or interstitial disease. The bony structures are intact. Rotator cuff anchors identified in the right shoulder. Impression: 1. No acute cardiopulmonary process. 2. Findings suggest COPD. Electronically signed by: Wilber Davis MD (03/25/2019 2:10 PM) [facility]
--- NOTE | 2019-03-25 15:14 | NUR ---
Eliseo WILSON informed of lab and XRAY results.
[2019-03-25 15:24] VITALS: BP 118/70
[2019-03-25] MEDS: DIVALPROEX 125 MG CAP.SPRINK PO SCH (21:05)
[2019-03-25] MEDS: MELATONIN 3 MG TABLET PO SCH (21:06)
--- NOTE | 2019-03-25 21:21 | PDOC ---
Exam Note: Sony Note: Please also refer to the separate dictated note~for this date of service dictated separately.~Patient seen individually. Discussed the patient with Nursing staff reviewed the chart.~Reviewed interim history and current functioning. Reviewed vital signs,~Labs/ Radiology~and current medications noted below. Continue current treatment with the changes noted in the dictated addendum note Assessment: Vital Signs/I&O: Vital Signs Date Time Temp Pulse Resp B/P (MAP) Pulse Ox O2 Delivery O2 Flow Rate FiO2 03/25/19 15:24 98.5 69 16 118/70 (86) 96 03/23/19 05:17 Room Air I & O 03/24/19 03/24/19 03/25/19 15:00 23:00 07:00 Intake Total 600 ml 360 ml Balance 600 ml 360 ml Labs: Laboratory Tests Test 03/25/19 13:05 White Blood Count 7.2 x10^3/uL (4.0-11.0) Red Blood Count 3.71 x10^6/uL (3.50-5.40) Hemoglobin 12.0 g/dL (12.0-15.5) Hematocrit 36.1 % (36.0-47.0) Mean Corpuscular Volume 97 fL (79-100) Mean Corpuscular Hemoglobin 32 pg (25-35) Mean Corpuscular Hemoglobin Concent 33 g/dL (31-37) Red Cell Distribution Width 14.2 % (11.5-14.5) Platelet Count 256 x10^3/uL (140-400) Neutrophils (%) (Auto) 78 % (31-73) H Lymphocytes (%) (Auto) 13 % (24-48) L Monocytes (%) (Auto) 7 % (0-9) Eosinophils (%) (Auto) 1 % (0-3) Basophils (%) (Auto) 1 % (0-3) Neutrophils # (Auto) 5.6 x10^3uL (1.8-7.7) Lymphocytes # (Auto) 0.9 x10^3/uL (1.0-4.8) L Monocytes # (Auto) 0.5 x10^3/uL (0.0-1.1) Eosinophils # (Auto) 0.1 x10^3/uL (0.0-0.7) Basophils # (Auto) 0.0 x10^3/uL (0.0-0.2) Sodium Level 138 mmol/L (136-145) Potassium Level 4.2 mmol/L (3.5-5.1) Chloride Level 99 mmol/L (98-107) Carbon Dioxide Level 27 mmol/L (21-32) Anion Gap 12 (6-14) Blood Urea Nitrogen 20 mg/dL (7-20) Creatinine 0.8 mg/dL (0.6-1.0) Estimated GFR (Cockcroft-Gault) 67.7 BUN/Creatinine Ratio 25 (6-20) H Glucose Level 103 mg/dL (70-99) H Lactic Acid Level 0.8 mmol/L (0.4-2.0) Calcium Level 9.5 mg/dL (8.5-10.1) Total Bilirubin 0.3 mg/dL (0.2-1.0) Aspartate Amino Transferase (AST) 22 U/L (15-37) Alanine Aminotransferase (ALT) 26 U/L (14-59) Alkaline Phosphatase 79 U/L (46-116) Total Protein 7.2 g/dL (6.4-8.2) Albumin 3.7 g/dL (3.4-5.0) Albumin/Globulin Ratio 1.1 (1.0-1.7) Current Medications: Meds: Current Medications Medications (Trade) Dose Ordered Sig/Mickey Route PRN Reason Start Time Stop Time Status Last Admin Dose Admin Ondansetron HCl (Zofran Odt) 4 mg PRN Q4HRS PRN PO NAUSEA/VOMITING 03/25/19 13:00 03/25/19 13:20 Divalproex Sodium (Depakote Sprinkles) 125 mg [id number] PO 03/25/19 20:00 03/25/19 21:05 I have reviewed the current psychotropics carefully including drug interactions. Risk benefit ratio favors no change other than as noted in my dictated progress note. Diagnosis: Problems: (1) Major depressive disorder, recurrent episode (2) Mild cognitive disorder (3) Dementia, vascular, with depression (4) Bipolar disorder with depression (5) Major neurocognitive disorder HECTOR AL MD Mar 25, 2019 21:21
--- NOTE | 2019-03-26 01:20 | NUR ---
Nursing Note Pt is anxious this pm, attempted to refuse meds this PM. Finally took them after multiple attemts Resting well.
[2019-03-26 04:57] VITALS: BP 155/96
--- NOTE | 2019-03-26 04:59 | PN ---
DATE: 03/22/2019 PSYCHIATRIC PROGRESS NOTE This late entry 03/22/2019 covers elements not covered in my initial note. SUBJECTIVE: I met with the patient in the evening. Per ROSE MARY Martinez, the patient slept 7-3/4 hours previous night. She did better after that the daughter's visit, but continues to have ongoing mood vacillations, anxiety, depression with mood lability. REVIEW OF SYSTEMS: Ambulation impaired with walker. No CV, , pulmonary, eye, ENT system symptoms on review. Reliability varies. MENTAL STATUS EXAMINATION: The patient is oriented to herself and situation. Speech is coherent, can be a little pressured at times. Abstraction fair, computation impaired, language function intact. Mood and affect, lability showing some improvement. LABORATORY DATA: Reviewed. IMPRESSION: Bipolar disorder, depressed; anxiety disorder, unspecified; mild cognitive impairment. Rest unchanged. PLAN: Continue psychotropics from initial note, Exelon patch, Namenda, Zyprexa, melatonin and Zoloft which is being adjusted, Restoril has been stopped, and she is on trazodone for insomnia. HECTOR AL MD DR: RENO/angelic JOB#: [id number] / [id number]
[2019-03-26] MEDS: DIVALPROEX 125 MG CAP.SPRINK PO SCH ×2 (08:39→16:51)
[2019-03-26] MEDS: RIVASTIGMINE 9.5MG PATCH. TD SCH (08:39)
[2019-03-26] MEDS: ATORVASTATIN CALCIUM 20 MG TABLET PO SCH (08:39)
[2019-03-26] MEDS: GLUCOSAMINE/CHOND 500/400MG CAPSULE PO SCH ×2 (08:39→20:15)
[2019-03-26] MEDS: MEMANTINE 10 MG TABLET. PO SCH ×2 (08:40→20:15)
[2019-03-26] MEDS: MULTIVITAMIN with MINERAL TABLET. PO SCH (08:40)
[2019-03-26] MEDS: SERTRALINE 25 MG TABLET. PO SCH (08:40)
[2019-03-26] MEDS: OXYBUTYNIN CHLORIDE 5 MG TABLET PO SCH ×2 (08:40→20:15)
[2019-03-26] MEDS: CHOLECALCIFEROL (VITAMIN D3) 1,000 UNIT TABLET PO SCH (08:41)
[2019-03-26] MEDS: CALCIUM CARB/VIT D3 500/200 TABLET PO SCH (08:41)
[2019-03-26] MEDS: ASPIRIN 325 MG TABLET PO SCH (08:41)
[2019-03-26] MEDS: amLODIPine BESYLATE 5 MG TABLET PO SCH (08:41)
[2019-03-26] MEDS ORDERED: DIVALPROEX 125 MG CAP.SPRINK PO SCH (09:00)
--- NOTE | 2019-03-26 10:19 | NUR ---
Patient is alert, oriented to time, person and knows she is at hospital. When asked why she is here pt responded, "I took medications that shouldn't have." Pt has been crying this morning, stating "I shouldn't have taken that sleeping pill! Im so sleepy today! Now I'm going to sleep all day and not sleep tonight!" Pt so upset that she is shaking. Pt is now in bed taking a nap. Speech consulted due to patient having difficult swallowing food, diet changed to ground. Patient states she feels food getting stuck in throat, then coughs and the food comes up. Will monitor if patient has any swallowing issues with the ground diet.
[2019-03-26 15:40] VITALS: BP 152/75
[2019-03-26] MEDS: MELATONIN 3 MG TABLET PO SCH (20:15)
--- NOTE | 2019-03-26 21:59 | PDOC ---
Exam Note: Sony Note: Please also refer to the separate dictated note~for this date of service dictated separately.~Patient seen individually. Discussed the patient with Nursing staff reviewed the chart.~Reviewed interim history and current functioning. Reviewed vital signs,~Labs/ Radiology~and current medications noted below. Continue current treatment with the changes noted in the dictated addendum note Assessment: Vital Signs/I&O: Vital Signs Date Time Temp Pulse Resp B/P (MAP) Pulse Ox O2 Delivery O2 Flow Rate FiO2 03/26/19 15:40 98.7 79 18 152/75 (100) 96 03/23/19 05:17 Room Air I & O 03/25/19 03/25/19 03/26/19 15:00 23:00 07:00 Intake Total 240 ml 100 ml Balance 240 ml 100 ml Current Medications: I have reviewed the current psychotropics carefully including drug interactions. Risk benefit ratio favors no change other than as noted in my dictated progress note. Diagnosis: Problems: (1) Major depressive disorder, recurrent episode (2) Mild cognitive disorder (3) Dementia, vascular, with depression (4) Bipolar disorder with depression (5) Major neurocognitive disorder HECTOR AL MD Mar 26, 2019 21:59
--- NOTE | 2019-03-26 22:35 | PN ---
DATE: 03/25/2019 PSYCHIATRIC PROGRESS NOTE This late entry of 03/25/2019 covers elements not covered in my initial note. SUBJECTIVE: I met with the patient on the evening of 03/25/2019. The patient slept 6-3/4 hours previous night. She has been anxious, tearful. States she feels awful. Has had some GI symptoms, dry heaving and retching. We will defer to Dr. Donovan. Reviewed her history at length and reviewed information from Dr. Eaton, who covered for me for the past couple of days. She has a past history of bipolar disorder with periods of elation, racing thoughts, grandiosity, impulsive behaviors alternating from to being depressed. REVIEW OF SYSTEMS: Ambulation impaired and walked with walker or wheelchair. No CV, , pulmonary, eye system symptoms on review. Does have the GI symptoms as noted. MENTAL STATUS EXAM: Reasonably oriented. Speech is coherent. She was tearful, anxious, labile as I met with her at length in her room. Abstraction fair, computation impaired, language function intact. Mood and affect labile. LABORATORY DATA: Reviewed. IMPRESSION: Bipolar disorder, depressed; anxiety disorder, unspecified. Rest unchanged. Mild cognitive impairment. PLAN: Start Depakote Sprinkles 125 mg 9 a.m., 5 p.m. for her bipolar disorder. Check CBC, CMP, valproic acid level, ammonia level in 3 days. Maintain Zyprexa 2.5 mg daily, Exelon patch 9.5 mg a day, Namenda 10 mg b.i.d., melatonin 6 mg at bedtime, Zoloft 25 mg a day, trazodone p.r.n. insomnia. HECTOR AL MD DR: RENO/angelic JOB#: [id number] / [id number]
--- NOTE | 2019-03-26 23:26 | NUR ---
Nursing Note PT very anxious and upset, tearful on approach. States "I took my sleeping pill 5 minutes too soon, I will be up all night and sleep all day, it will be horrible, I can't take more meds, I am going to be a mess, up all night sleep all day till the next day, and then what, I can't think about it Im too upset to think or talk to you, and I don't want anymore of those pills please please please don't make me take more!!' Tried to redirect the best that I could, but the patient is difficult to redirect, talks in circles becoming increasingly upset. HS meds given finally after max amount of encouragement. Was resting fairly well, then awoke once around 2230 wandering upset and tearful again. Helped her to bathroom and back to bed at that time, and now is sleeping well.
[2019-03-27] MEDS: traZODone 50 MG TABLET. PO PRN ×2 (01:05→02:26)
--- NOTE | 2019-03-27 04:38 | NUR ---
Nursing Note: Pt awoke about 2 am, delusional stating "I'm awake, its dark I need to be asleep, but I took my sleeping pill 5 minutes late its going to make me miss my meals all day, its too late,its too late,its too late, I can't sleep, I want to sleep, I don't want to sleep, its not fair that I'm awake and have to sit here. with you" Highly encouraged Pt to take trazodone, and zydis. which she was eventually compliant with. "
[2019-03-27 06:39] VITALS: BP 125/61
[2019-03-27] MEDS: OXYBUTYNIN CHLORIDE 5 MG TABLET PO SCH ×3 (08:43→20:11)
[2019-03-27] MEDS: GLUCOSAMINE/CHOND 500/400MG CAPSULE PO SCH ×2 (08:43→20:07)
[2019-03-27] MEDS: CALCIUM CARB/VIT D3 500/200 TABLET PO SCH (08:43)
[2019-03-27] MEDS: amLODIPine BESYLATE 5 MG TABLET PO SCH (08:43)
[2019-03-27] MEDS: ASPIRIN 325 MG TABLET PO SCH (08:43)
[2019-03-27] MEDS: MULTIVITAMIN with MINERAL TABLET. PO SCH (08:43)
[2019-03-27] MEDS: MEMANTINE 10 MG TABLET. PO SCH ×2 (08:43→20:07)
[2019-03-27] MEDS: SERTRALINE 25 MG TABLET. PO SCH (08:43)
[2019-03-27] MEDS: ATORVASTATIN CALCIUM 20 MG TABLET PO SCH (08:43)
[2019-03-27] MEDS: CHOLECALCIFEROL (VITAMIN D3) 1,000 UNIT TABLET PO SCH (08:43)
[2019-03-27] MEDS: DIVALPROEX 125 MG CAP.SPRINK PO SCH ×2 (08:44→16:33)
[2019-03-27] MEDS: RIVASTIGMINE 9.5MG PATCH. TD SCH (08:53)
--- NOTE | 2019-03-27 09:40 | NUR ---
Nursing Note Patient was in her room at the time of care, she's AOx3. Pt was extremely disorganized, anxious, suspicious, acting helpless, tearful, c/o dizziness, nausea,and vomiting, states "They gave me medications that I shouldn't have!I have to throw them up! You are tying to poison me! I feel sick!" Pt then attempted to refuse her AM meds but eventually complaint with a lot of teaching and reassurance that every pill we give her were reviewed and ordered by licensed medical doctor md/medical director. Pt started crying again, re-directed to the dayroom and offered group therapy. Pt cooperated and participated in group and was able to re-direct at this time. Pt denies SI when asked states "I don't know why I did what I did. I have panic attacks that I couldn't control.".Denies pain. Will continue to monitor.
--- NOTE | 2019-03-27 13:34 | NUR ---
WEEKLY ACTIVITY THERAPY NOTE Date of Admission: 03/20/2018 Date of AT Assessment: 03/23/2019 Goal aimed: to reduce stress and increase engagement Initial Goal: Pt. will participate in at least five Activity Therapy groups per week. Weekly progress towards goal: 10/25 Group participation level: 1 min, 5 mod, 3 full Weekly highlights: requesting her nails be painted red on Monday Behaviors observed: anxious/ fixated at times-, distracted often, more easily redirected in the mornings, positive interaction with peer Plan: no change to goal at this time Beneficial adaptations: reminders, reassurance, politely change/redirect subject to task at hand during anxious moments
[2019-03-27 15:30] VITALS: BP 132/77
[2019-03-27] MEDS: MELATONIN 3 MG TABLET PO SCH ×2 (20:07→20:12)
--- NOTE | 2019-03-27 20:45 | PN ---
DATE: 03/26/2019 PSYCHIATRIC PROGRESS NOTE This late entry 03/26/2019 covers elements not covered in my initial note. SUBJECTIVE: I met with the patient evening of 03/26/2019. Per ROSE MARY Saunders, the patient slept 7-1/4 hours previous night. She continues to be anxious with ongoing mood lability. REVIEW OF SYSTEMS: Ambulation impaired with walker. No CV, , pulmonary, eye system symptoms on review. MENTAL STATUS EXAM: Oriented to herself and situation. Speech is coherent, can be rapid at times. Abstraction fair, computation impaired, language function intact, attention span short. Mood and affect remain quite labile. LABORATORY DATA: Reviewed. IMPRESSION: Bipolar disorder, depressed with psychotic features; anxiety disorder, unspecified. Rest unchanged. PLAN: Continue Depakote 125 mg 9 a.m., 5:00 p.m. Check labs, ammonia level, valproic acid level in 2 days. Continue rest of the psychotropics unchanged. HECTOR AL MD DR: RENO/angelic JOB#: [id number] / [id number]
--- NOTE | 2019-03-27 21:30 | PDOC ---
Exam Note: Sony Note: Please also refer to the separate dictated note~for this date of service dictated separately.~Patient seen individually. Discussed the patient with Nursing staff reviewed the chart.~Reviewed interim history and current functioning. Reviewed vital signs,~Labs/ Radiology~and current medications noted below. Continue current treatment with the changes noted in the dictated addendum note Assessment: Vital Signs/I&O: Vital Signs Date Time Temp Pulse Resp B/P (MAP) Pulse Ox O2 Delivery O2 Flow Rate FiO2 03/27/19 15:30 97.4 71 16 132/77 (95) 100 03/23/19 05:17 Room Air I & O 03/26/19 03/26/19 03/27/19 15:00 23:00 07:00 Intake Total 480 ml 480 ml 120 ml Balance 480 ml 480 ml 120 ml Current Medications: I have reviewed the current psychotropics carefully including drug interactions. Risk benefit ratio favors no change other than as noted in my dictated progress note. Diagnosis: Problems: (1) Major depressive disorder, recurrent episode (2) Mild cognitive disorder (3) Dementia, vascular, with depression (4) Bipolar disorder with depression (5) Major neurocognitive disorder HECTOR AL MD Mar 27, 2019 21:30
--- NOTE | 2019-03-27 22:07 | NUR ---
Nursing Note: Pt withdrawn to room at shift change but later came to the day room for snack. Pt attention seeking, disorganized, and resistive. Pt delusional, she believes that she has already taken her sleeping pill during the day, today. This nurse attempted to educate and reassure pt multiple times without success. Pt refused to take Melatonin and Ditropan this evening. This nurse attempted to re-approach pt several times without success. Pt currently sleeping in her room at this time.
[2019-03-28 05:33] VITALS: BP 146/73
[2019-03-28 07:21] LABS: BASO # 0.1 x10^3/uL (0.0-0.2); BASO % 1 % (0-3); EOS # 0.1 x10^3/uL (0.0-0.7); EOS % 3 % (0-3); HEMATOCRIT 34.1 % (36.0-47.0); HEMOGLOBIN 11.3 g/dL (12.0-15.5); LYMPH # 0.8 x10^3/uL (1.0-4.8); LYMPH % 17 % (24-48); MEAN CORPUSCULAR HEMOGLOBIN 32 pg (25-35); MEAN CORPUSCULAR HGB CONC 33 g/dL (31-37); MEAN CORPUSCULAR VOLUME 97 fL (79-100); MONO # 0.6 x10^3/uL (0.0-1.1); MONO % 13 % (0-9); NEUT # 3.1 x10^3uL (1.8-7.7); NEUT % 67 % (31-73); PLATELET COUNT 240 x10^3/uL (140-400); RED CELL DISTRIBUTION WIDTH 13.8 % (11.5-14.5); WHITE BLOOD COUNT 4.7 x10^3/uL (4.0-11.0)
[2019-03-28 07:42] LABS: ALBUMIN 3.4 g/dL (3.4-5.0); ALK PHOS 71 U/L (46-116); ALT (SGPT) 26 U/L (14-59); ANION GAP 6 (6-14); AST (SGOT) 20 U/L (15-37); BLOOD UREA NITROGEN 11 mg/dL (7-20); BUN/CREATININE RATIO 14 (6-20); CALCIUM 9.2 mg/dL (8.5-10.1); CARBON DIOXIDE 30 mmol/L (21-32); CHLORIDE 104 mmol/L (98-107); CREATININE 0.8 mg/dL (0.6-1.0); GFR 67.7; GLUCOSE 67 mg/dL (70-99); POTASSIUM 3.8 mmol/L (3.5-5.1); SODIUM 140 mmol/L (136-145); TOTAL BILIRUBIN 0.3 mg/dL (0.2-1.0); TOTAL PROTEIN 6.8 g/dL (6.4-8.2)
[2019-03-28 07:43] LABS: VAL ACID 23 mcg/mL (50-100)
[2019-03-28] MEDS: CHOLECALCIFEROL (VITAMIN D3) 1,000 UNIT TABLET PO SCH (08:30)
[2019-03-28] MEDS: ASPIRIN 325 MG TABLET PO SCH (08:30)
[2019-03-28] MEDS: ATORVASTATIN CALCIUM 20 MG TABLET PO SCH (08:30)
[2019-03-28] MEDS: GLUCOSAMINE/CHOND 500/400MG CAPSULE PO SCH ×2 (08:31→20:19)
[2019-03-28] MEDS: MULTIVITAMIN with MINERAL TABLET. PO SCH (08:31)
[2019-03-28] MEDS: CALCIUM CARB/VIT D3 500/200 TABLET PO SCH (08:31)
[2019-03-28] MEDS: MEMANTINE 10 MG TABLET. PO SCH ×2 (08:31→20:19)
[2019-03-28] MEDS: OXYBUTYNIN CHLORIDE 5 MG TABLET PO SCH ×2 (08:31→20:19)
[2019-03-28] MEDS: amLODIPine BESYLATE 5 MG TABLET PO SCH (08:31)
[2019-03-28] MEDS: SERTRALINE 25 MG TABLET. PO SCH (08:31)
[2019-03-28] MEDS: DIVALPROEX 125 MG CAP.SPRINK PO SCH ×4 (08:31→20:19)
[2019-03-28] MEDS: RIVASTIGMINE 9.5MG PATCH. TD SCH (08:32)
[2019-03-28] MEDS: QUEtiapine 25 MG TABLET. PO SCH ×2 (08:32→17:25)
--- NOTE | 2019-03-28 10:29 | NUR ---
Nursing note: Pt in dining room for morning meds and assessment. She was anxious and worried about taking sleeping pills. Pt was reassured that she does not receive sleeping meds during the day and was then compliant with taking her meds whole with no further difficulty. She was cooperative with her assessment. Pt is currently in the day room. Will continue to monitor.
--- NOTE | 2019-03-28 12:41 | NUR ---
Nursing note: Pt was resistive to her meds, stating they are making her worse. Pt was reeducated on the purpose of her medicine and agreed to take it. Pt then proceeded to stuff the pill under her top denture and took a drink of her tea. Then pt spit pill out in her hand and attempted to hide it from this nurse. Pill was then mixed with chocolate pudding, which she was compliant in eating.
[2019-03-28 16:01] VITALS: BP 148/81
[2019-03-28] MEDS: MELATONIN 3 MG TABLET PO SCH (20:19)
--- NOTE | 2019-03-28 21:25 | PDOC ---
Exam Note: Sony Note: Please also refer to the separate dictated note~for this date of service dictated separately.~Patient seen individually. Discussed the patient with Nursing staff reviewed the chart.~Reviewed interim history and current functioning. Reviewed vital signs,~Labs/ Radiology~and current medications noted below. Continue current treatment with the changes noted in the dictated addendum note Assessment: Vital Signs/I&O: Vital Signs Date Time Temp Pulse Resp B/P (MAP) Pulse Ox O2 Delivery O2 Flow Rate FiO2 03/28/19 16:01 97.4 75 16 148/81 (103) 98 03/28/19 05:33 Room Air I & O 03/27/19 03/27/19 03/28/19 15:00 23:00 07:00 Intake Total 720 ml 600 ml Balance 720 ml 600 ml Labs: Laboratory Tests Test 03/28/19 06:39 White Blood Count 4.7 x10^3/uL (4.0-11.0) Red Blood Count 3.50 x10^6/uL (3.50-5.40) Hemoglobin 11.3 g/dL (12.0-15.5) L Hematocrit 34.1 % (36.0-47.0) L Mean Corpuscular Volume 97 fL (79-100) Mean Corpuscular Hemoglobin 32 pg (25-35) Mean Corpuscular Hemoglobin Concent 33 g/dL (31-37) Red Cell Distribution Width 13.8 % (11.5-14.5) Platelet Count 240 x10^3/uL (140-400) Neutrophils (%) (Auto) 67 % (31-73) Lymphocytes (%) (Auto) 17 % (24-48) L Monocytes (%) (Auto) 13 % (0-9) H Eosinophils (%) (Auto) 3 % (0-3) Basophils (%) (Auto) 1 % (0-3) Neutrophils # (Auto) 3.1 x10^3uL (1.8-7.7) Lymphocytes # (Auto) 0.8 x10^3/uL (1.0-4.8) L Monocytes # (Auto) 0.6 x10^3/uL (0.0-1.1) Eosinophils # (Auto) 0.1 x10^3/uL (0.0-0.7) Basophils # (Auto) 0.1 x10^3/uL (0.0-0.2) Sodium Level 140 mmol/L (136-145) Potassium Level 3.8 mmol/L (3.5-5.1) Chloride Level 104 mmol/L (98-107) Carbon Dioxide Level 30 mmol/L (21-32) Anion Gap 6 (6-14) Blood Urea Nitrogen 11 mg/dL (7-20) Creatinine 0.8 mg/dL (0.6-1.0) Estimated GFR (Cockcroft-Gault) 67.7 BUN/Creatinine Ratio 14 (6-20) Glucose Level 67 mg/dL (70-99) L Calcium Level 9.2 mg/dL (8.5-10.1) Total Bilirubin 0.3 mg/dL (0.2-1.0) Aspartate Amino Transferase (AST) 20 U/L (15-37) Alanine Aminotransferase (ALT) 26 U/L (14-59) Alkaline Phosphatase 71 U/L (46-116) Ammonia < 10 mcmol/L (11-34) L Total Protein 6.8 g/dL (6.4-8.2) Albumin 3.4 g/dL (3.4-5.0) Albumin/Globulin Ratio 1.0 (1.0-1.7) Valproic Acid Level 23 mcg/mL (50-100) L Valproic Acid Last Dose Date 03/27/2019 Valproic Acid Last Dose Time 2100 Current Medications: Meds: Current Medications Medications (Trade) Dose Ordered Sig/Mickey Route PRN Reason Start Time Stop Time Status Last Admin Dose Admin Quetiapine Fumarate (SEROquel) 12.5 mg 0900,1700 PO 03/28/19 09:00 03/28/19 17:25 Divalproex Sodium (Depakote Sprinkles) 125 mg QID PO 03/28/19 13:00 03/28/19 20:19 I have reviewed the current psychotropics carefully including drug interactions. Risk benefit ratio favors no change other than as noted in my dictated progress note. Diagnosis: Problems: (1) Major depressive disorder, recurrent episode (2) Mild cognitive disorder (3) Dementia, vascular, with depression (4) Bipolar disorder with depression (5) Major neurocognitive disorder HECTOR AL MD Mar 28, 2019 21:25
--- NOTE | 2019-03-28 23:13 | NUR ---
Pt highly anxious and attention seeking this evening. Pt repeatedly stating "I'm scared" and reaching for staff's hand to hold. Pt resistive with HS medications stating that she cannot take them or she will sleep too much during the day.Pt educated on the need for her to take her medications. Pt reluctantly took them after much reinforcement. Mouth checked for pocketing of pills.
[2019-03-29 05:18] VITALS: BP 144/74
[2019-03-29] MEDS: GLUCOSAMINE/CHOND 500/400MG CAPSULE PO SCH ×2 (08:25→20:21)
[2019-03-29] MEDS: DIVALPROEX 125 MG CAP.SPRINK PO SCH ×4 (08:25→20:21)
[2019-03-29] MEDS: amLODIPine BESYLATE 5 MG TABLET PO SCH (08:25)
[2019-03-29] MEDS: CHOLECALCIFEROL (VITAMIN D3) 1,000 UNIT TABLET PO SCH (08:25)
[2019-03-29] MEDS: SERTRALINE 25 MG TABLET. PO SCH (08:25)
[2019-03-29] MEDS: MEMANTINE 10 MG TABLET. PO SCH ×2 (08:25→20:21)
[2019-03-29] MEDS: ASPIRIN 325 MG TABLET PO SCH (08:25)
[2019-03-29] MEDS: RIVASTIGMINE 9.5MG PATCH. TD SCH (08:26)
[2019-03-29] MEDS: CALCIUM CARB/VIT D3 500/200 TABLET PO SCH (08:26)
[2019-03-29] MEDS: ATORVASTATIN CALCIUM 20 MG TABLET PO SCH (08:26)
[2019-03-29] MEDS: MULTIVITAMIN with MINERAL TABLET. PO SCH (08:26)
[2019-03-29] MEDS: OXYBUTYNIN CHLORIDE 5 MG TABLET PO SCH ×2 (08:26→20:21)
[2019-03-29] MEDS: QUEtiapine 25 MG TABLET. PO SCH ×2 (08:26→17:07)
--- NOTE | 2019-03-29 08:38 | PN ---
DATE: 03/27/2019 PSYCHIATRIC PROGRESS NOTE This late entry 03/27/2019 covers elements not covered in my initial note. SUBJECTIVE: I met with the patient evening of 03/27/2019. Per ROSE MARY Mc, the patient slept 6 hours previous night. She remains somewhat anxious, tearful at times, attention seeking per nursing report and admits to having intermittent panic attacks. Appetite is fair. She is complaining of being somewhat drowsy. REVIEW OF SYSTEMS: Ambulation impaired with walker. No CV, , pulmonary, eye system symptoms on review. She has vague somatic symptoms. MENTAL STATUS EXAM: Oriented to herself and situation. Speech coherent, rapid. Abstraction fair, computation impaired, language function intact, attention span short. Mood and affect remains anxious, labile. LABORATORY DATA: Reviewed. IMPRESSION: Bipolar disorder, mixed with psychotic features; anxiety disorder, unspecified; mild cognitive impairment. PLAN: Change the Zyprexa 2.5 mg daily to Seroquel 12.5 mg 9 a.m., 5:00 p.m. Depakote was initiated. Follow labs level on 03/28/2019. Adjust further as clinically indicated. Continue melatonin, Namenda, Exelon patch, low dose Zoloft, which we may stop given her diagnosis of bipolar disorder. MAN Hector AL MD DR: RENO/angelic JOB#: [id number] / [id number]
--- NOTE | 2019-03-29 09:14 | PN ---
DATE: 03/28/2019 PSYCHIATRIC PROGRESS NOTE This late entry of 03/28/2019 covers the elements not covered in my initial note. SUBJECTIVE: I met with the patient in the evening of 03/28/2019 and staffed at a treatment team meeting with the entire team in the morning and the patient's daughter, Eliseo, attended the conference. The patient lives at home with her daughter, Eliseo, who cares for the patient. She had a lengthy discussion about her diagnosis of bipolar disorder, which has been very well validated and her past treatment options. Discussed having started Depakote as a mood stabilizer. Valproic acid level on 03/28/2019 is 23, subtherapeutic on Depakote Sprinkles 125 mg b.i.d. We will increase to 125 mg 4 times a day. Check CBC, CMP, valproic acid level in 3 days and adjust further thereafter. She remains anxious, tearful, somewhat paranoid at times, refusing medications. REVIEW OF SYSTEMS: Ambulation impaired with walker. No CV, , pulmonary, eye system symptoms on review. She has vague somatic symptoms. MENTAL STATUS EXAM: Oriented to herself and situation. Speech coherent, can be rapid at times. Abstraction fair, computation impaired, language function intact, attention span short. Mood and affect remain somewhat labile, tearful at times as I met with her at length in her room. LABORATORY DATA: Reviewed. IMPRESSION: Bipolar disorder, mixed with psychotic features; anxiety disorder, unspecified; mild cognitive impairment. PLAN: Increase the Depakote as noted. Maintain Exelon patch 9.5 mg a day, Namenda 10 mg b.i.d., melatonin 6 mg at bedtime, Zoloft 25 mg a day, Seroquel at current dosage 12.5 mg twice a day. Adjust further as clinically indicated. HECTOR AL MD DR: RENO/angelic JOB#: [id number] / [id number]
[2019-03-29 15:35] VITALS: BP 132/77
--- NOTE | 2019-03-29 17:44 | NUR ---
NURSING NOTE: PATIENT IN DINING ROOM AT TIME OF AM ASSESSMENT. PATIENT ALERT TO SELF ONLY, SPEECH CLEAR, ABLE TO MAKE NEEDS KNOWN. LCTA. PATIENT ON ROOM AIR. NO COUGH NOTED. BS ACTIVE X4 QUADRANTS. NO C/O PAIN OR DISCOMFORT NOTED THUS FAR. MEDICATIONS GIVEN WHOLE, TOLERATED WELL. PATIENT HAS HIGHLY ANXIOUS, TEARFUL, AND PARANOID THIS SHIFT. PATIENT IS RESISTIVE TO MEDICATIONS, STATES "I TOOK A SLEEPING PILL THIS MORNING AND I SHOULDN'T HAVE," PATIENT EDUCATED THAT SHE WAS NOT GIVEN A SLEEPING PILL THIS MORNING. AFTER TALKING WITH PATIENT ABOUT MEDICATIONS, PATIENT TOOK MEDICATIONS WHOLE AND TOLERATED WELL. THIS NURSE SPOKE TO DR. AL TODAY, NO NEW ORDERS AT THIS TIME. STATES PATIENT WAS STARTED ON DEPAKOTE RECENTLY AND WANTS TO WAIT UNTIL LAB DRAW ON 03/31 FOR DRUG LEVELS TO ADJUST MEDICATIONS.
[2019-03-29] MEDS: MELATONIN 3 MG TABLET PO SCH (20:21)
--- NOTE | 2019-03-29 21:28 | PDOC ---
Exam Note: Sony Note: Please also refer to the separate dictated note~for this date of service dictated separately.~Patient seen individually. Discussed the patient with Nursing staff reviewed the chart.~Reviewed interim history and current functioning. Reviewed vital signs,~Labs/ Radiology~and current medications noted below. Continue current treatment with the changes noted in the dictated addendum note Assessment: Vital Signs/I&O: Vital Signs Date Time Temp Pulse Resp B/P (MAP) Pulse Ox O2 Delivery O2 Flow Rate FiO2 03/29/19 15:35 98.4 75 16 132/77 (95) 99 03/28/19 05:33 Room Air I & O 03/28/19 03/28/19 03/29/19 15:00 23:00 07:00 Intake Total 480 ml 360 ml Balance 480 ml 360 ml Current Medications: I have reviewed the current psychotropics carefully including drug interactions. Risk benefit ratio favors no change other than as noted in my dictated progress note. Diagnosis: Problems: (1) Major depressive disorder, recurrent episode (2) Mild cognitive disorder (3) Dementia, vascular, with depression (4) Bipolar disorder with depression (5) Major neurocognitive disorder HECTOR AL MD Mar 29, 2019 21:28
--- NOTE | 2019-03-29 23:24 | NUR ---
Pt highly anxious this evening. Resistive to medications, stating she does not want to take them because they will make her sleep all day. Pt reminded that she took her medications last night and did fine all day today. Pt eventually compliant after much redirection.
[2019-03-30 05:34] VITALS: BP 133/76
[2019-03-30] MEDS: amLODIPine BESYLATE 5 MG TABLET PO SCH (08:13)
[2019-03-30] MEDS: MULTIVITAMIN with MINERAL TABLET. PO SCH (08:13)
[2019-03-30] MEDS: ASPIRIN 325 MG TABLET PO SCH (08:13)
[2019-03-30] MEDS: RIVASTIGMINE 9.5MG PATCH. TD SCH (08:14)
[2019-03-30] MEDS: CHOLECALCIFEROL (VITAMIN D3) 1,000 UNIT TABLET PO SCH (08:14)
[2019-03-30] MEDS: OXYBUTYNIN CHLORIDE 5 MG TABLET PO SCH ×2 (08:15→20:30)
[2019-03-30] MEDS: ATORVASTATIN CALCIUM 20 MG TABLET PO SCH (08:15)
[2019-03-30] MEDS: QUEtiapine 25 MG TABLET. PO SCH ×2 (08:15→16:27)
[2019-03-30] MEDS: MEMANTINE 10 MG TABLET. PO SCH ×2 (08:16→20:30)
[2019-03-30] MEDS: DIVALPROEX 125 MG CAP.SPRINK PO SCH ×4 (08:16→20:30)
[2019-03-30] MEDS: GLUCOSAMINE/CHOND 500/400MG CAPSULE PO SCH ×2 (08:16→20:30)
[2019-03-30] MEDS: SERTRALINE 25 MG TABLET. PO SCH (08:16)
[2019-03-30] MEDS: CALCIUM CARB/VIT D3 500/200 TABLET PO SCH (08:16)
--- NOTE | 2019-03-30 10:11 | NUR ---
Patient anxious. Resistive to medications, stating she does not want to take them because they will make her sleep all day. Patient insured that she will be encouraged to stay awake all day with activates in the day room and the medications are not meant to make her sleep. Patient eventually compliant after much redirection.
[2019-03-30 15:41] VITALS: BP 133/76
[2019-03-30] MEDS: MELATONIN 3 MG TABLET PO SCH (20:30)
--- NOTE | 2019-03-30 22:17 | NUR ---
Jennifer Note: Patient was day room at time of medication administration and assessments. Patient somewhat anxious, ASB RN spoke to patient to try and distract her talking to her about her past career and daughter. Patient very stressed/anxious about taking medications before 2200 & having to go to bed at 2200 exactly. Eventually calmed down after conversing more with RN. Addendum: 03/31/19 at 0317 by JEFFERY JORGE RN PRN Trazodone given around [id number] as patient was claiming she could not sleep. After this was administered, patient kept coming out of the room claiming it was poisoning her and making her shake and go numb and tingly in her hands and feet. Patient eventually laid back down after an hour or so at this time.
[2019-03-31] MEDS: traZODone 50 MG TABLET. PO PRN (00:30)
[2019-03-31 06:01] VITALS: BP 152/81
[2019-03-31] MEDS: ASPIRIN 325 MG TABLET PO SCH (08:08)
[2019-03-31] MEDS: MEMANTINE 10 MG TABLET. PO SCH ×2 (08:09→21:03)
[2019-03-31] MEDS: ATORVASTATIN CALCIUM 20 MG TABLET PO SCH (08:09)
[2019-03-31] MEDS: OXYBUTYNIN CHLORIDE 5 MG TABLET PO SCH ×2 (08:09→21:03)
[2019-03-31] MEDS: SERTRALINE 25 MG TABLET. PO SCH (08:09)
[2019-03-31] MEDS: RIVASTIGMINE 9.5MG PATCH. TD SCH (08:09)
[2019-03-31] MEDS: DIVALPROEX 125 MG CAP.SPRINK PO SCH ×4 (08:09→21:03)
[2019-03-31] MEDS: CALCIUM CARB/VIT D3 500/200 TABLET PO SCH (08:09)
[2019-03-31] MEDS: MULTIVITAMIN with MINERAL TABLET. PO SCH (08:09)
[2019-03-31] MEDS: GLUCOSAMINE/CHOND 500/400MG CAPSULE PO SCH ×2 (08:09→21:03)
[2019-03-31] MEDS: amLODIPine BESYLATE 5 MG TABLET PO SCH (08:10)
[2019-03-31] MEDS: QUEtiapine 25 MG TABLET. PO SCH ×2 (08:10→17:06)
[2019-03-31] MEDS: CHOLECALCIFEROL (VITAMIN D3) 1,000 UNIT TABLET PO SCH (08:10)
[2019-03-31 08:22] LABS: BASO % 1 % (0-3); EOS # 0.1 x10^3/uL (0.0-0.7); EOS % 2 % (0-3); HEMATOCRIT 36.6 % (36.0-47.0); HEMOGLOBIN 12.1 g/dL (12.0-15.5); LYMPH # 0.8 x10^3/uL (1.0-4.8); LYMPH % 13 % (24-48); MEAN CORPUSCULAR HEMOGLOBIN 32 pg (25-35); MEAN CORPUSCULAR HGB CONC 33 g/dL (31-37); MEAN CORPUSCULAR VOLUME 98 fL (79-100); MONO # 0.6 x10^3/uL (0.0-1.1); MONO % 10 % (0-9); NEUT # 4.3 x10^3uL (1.8-7.7); NEUT % 74 % (31-73); PLATELET COUNT 258 x10^3/uL (140-400); RED BLOOD COUNT 3.74 x10^6/uL (3.50-5.40); RED CELL DISTRIBUTION WIDTH 14.2 % (11.5-14.5); WHITE BLOOD COUNT 5.8 x10^3/uL (4.0-11.0)
[2019-03-31 08:30] LABS: ALBUMIN 3.7 g/dL (3.4-5.0); ALK PHOS 80 U/L (46-116); ALT (SGPT) 22 U/L (14-59); ANION GAP 7 (6-14); AST (SGOT) 19 U/L (15-37); BLOOD UREA NITROGEN 11 mg/dL (7-20); BUN/CREATININE RATIO 14 (6-20); CALCIUM 9.3 mg/dL (8.5-10.1); CARBON DIOXIDE 31 mmol/L (21-32); CHLORIDE 103 mmol/L (98-107); CREATININE 0.8 mg/dL (0.6-1.0); GFR 67.7; GLUCOSE 92 mg/dL (70-99); POTASSIUM 4.3 mmol/L (3.5-5.1); SODIUM 141 mmol/L (136-145); TOTAL BILIRUBIN 0.3 mg/dL (0.2-1.0); TOTAL PROTEIN 7.4 g/dL (6.4-8.2)
[2019-03-31 08:31] LABS: VAL ACID 69 mcg/mL (50-100)
--- NOTE | 2019-03-31 09:54 | NUR ---
Patient anxious, but appears to be excited to see her daughter today. Patient compliant with medication and assessment. Patient did not like how the trazodone made her feel and requested not to have it again.
[2019-03-31 16:03] VITALS: BP 118/70
[2019-03-31] MEDS: MIRTAZAPINE 7.5 MG TABLET. PO SCH (21:03)
[2019-03-31] MEDS: MELATONIN 3 MG TABLET PO SCH (21:03)
--- NOTE | 2019-03-31 21:42 | PDOC ---
Exam Note: Sony Note: This is a late entry for DOS 03/30/2019. Please also refer to the separate dictated note~for this date of service dictated separately.~Patient seen individually. Discussed the patient with Nursing staff reviewed the chart.~Reviewed interim history and current functioning. Reviewed vital signs,~Labs/ Radiology~and current medications noted below. Continue current treatment with the changes noted in the dictated addendum note Assessment: Vital Signs/I&O: VS - Last 72 Hours, by Label Date Time Temp Pulse Resp B/P (MAP) Pulse Ox O2 Delivery O2 Flow Rate FiO2 03/31/19 16:03 98.0 62 20 118/70 (86) 98 03/31/19 08:10 91 152/81 03/31/19 06:01 98.6 91 16 152/81 (104) 96 Room Air 03/30/19 15:41 97.9 74 20 133/76 (95) 99 03/30/19 08:13 69 133/76 03/30/19 05:34 98.1 69 16 133/76 (95) 97 03/29/19 15:35 98.4 75 16 132/77 (95) 99 03/29/19 08:25 82 144/74 03/29/19 05:18 97.2 82 17 144/74 (97) 96 Vital Signs Date Time Temp Pulse Resp B/P (MAP) Pulse Ox O2 Delivery O2 Flow Rate FiO2 03/31/19 16:03 98.0 62 20 118/70 (86) 98 03/31/19 06:01 Room Air I & O 03/30/19 03/30/19 03/31/19 15:00 23:00 07:00 Intake Total 960 ml 480 ml Balance 960 ml 480 ml Labs: Laboratory Tests Test 03/31/19 07:58 White Blood Count 5.8 x10^3/uL (4.0-11.0) Red Blood Count 3.74 x10^6/uL (3.50-5.40) Hemoglobin 12.1 g/dL (12.0-15.5) Hematocrit 36.6 % (36.0-47.0) Mean Corpuscular Volume 98 fL (79-100) Mean Corpuscular Hemoglobin 32 pg (25-35) Mean Corpuscular Hemoglobin Concent 33 g/dL (31-37) Red Cell Distribution Width 14.2 % (11.5-14.5) Platelet Count 258 x10^3/uL (140-400) Neutrophils (%) (Auto) 74 % (31-73) H Lymphocytes (%) (Auto) 13 % (24-48) L Monocytes (%) (Auto) 10 % (0-9) H Eosinophils (%) (Auto) 2 % (0-3) Basophils (%) (Auto) 1 % (0-3) Neutrophils # (Auto) 4.3 x10^3uL (1.8-7.7) Lymphocytes # (Auto) 0.8 x10^3/uL (1.0-4.8) L Monocytes # (Auto) 0.6 x10^3/uL (0.0-1.1) Eosinophils # (Auto) 0.1 x10^3/uL (0.0-0.7) Basophils # (Auto) 0.0 x10^3/uL (0.0-0.2) Sodium Level 141 mmol/L (136-145) Potassium Level 4.3 mmol/L (3.5-5.1) Chloride Level 103 mmol/L (98-107) Carbon Dioxide Level 31 mmol/L (21-32) Anion Gap 7 (6-14) Blood Urea Nitrogen 11 mg/dL (7-20) Creatinine 0.8 mg/dL (0.6-1.0) Estimated GFR (Cockcroft-Gault) 67.7 BUN/Creatinine Ratio 14 (6-20) Glucose Level 92 mg/dL (70-99) Calcium Level 9.3 mg/dL (8.5-10.1) Total Bilirubin 0.3 mg/dL (0.2-1.0) Aspartate Amino Transferase (AST) 19 U/L (15-37) Alanine Aminotransferase (ALT) 22 U/L (14-59) Alkaline Phosphatase 80 U/L (46-116) Total Protein 7.4 g/dL (6.4-8.2) Albumin 3.7 g/dL (3.4-5.0) Albumin/Globulin Ratio 1.0 (1.0-1.7) Valproic Acid Level 69 mcg/mL (50-100) Valproic Acid Last Dose Date 03/30/19 Valproic Acid Last Dose Time 2100 Current Medications: Meds: Current Medications Medications (Trade) Dose Ordered Sig/Mickey Route PRN Reason Start Time Stop Time Status Last Admin Dose Admin Mirtazapine (Remeron) 7.5 mg QHS PO 03/31/19 21:00 03/31/19 21:03 I have reviewed the current psychotropics carefully including drug interactions. Risk benefit ratio favors no change other than as noted in my dictated progress note. Diagnosis: Problems: (1) Major depressive disorder, recurrent episode (2) Mild cognitive disorder (3) Dementia, vascular, with depression (4) Bipolar disorder with depression (5) Major neurocognitive disorder HECTOR AL MD Mar 31, 2019 21:41
--- NOTE | 2019-03-31 21:56 | PDOC ---
Exam Note: Sony Note: Please also refer to the separate dictated note~for this date of service dictated separately.~Patient seen individually. Discussed the patient with Nursing staff reviewed the chart.~Reviewed interim history and current functioning. Reviewed vital signs,~Labs/ Radiology~and current medications noted below. Continue current treatment with the changes noted in the dictated addendum note Assessment: Vital Signs/I&O: Vital Signs Date Time Temp Pulse Resp B/P (MAP) Pulse Ox O2 Delivery O2 Flow Rate FiO2 03/31/19 16:03 98.0 62 20 118/70 (86) 98 03/31/19 06:01 Room Air I & O 03/30/19 03/30/19 03/31/19 15:00 23:00 07:00 Intake Total 960 ml 480 ml Balance 960 ml 480 ml Labs: Laboratory Tests Test 03/31/19 07:58 White Blood Count 5.8 x10^3/uL (4.0-11.0) Red Blood Count 3.74 x10^6/uL (3.50-5.40) Hemoglobin 12.1 g/dL (12.0-15.5) Hematocrit 36.6 % (36.0-47.0) Mean Corpuscular Volume 98 fL (79-100) Mean Corpuscular Hemoglobin 32 pg (25-35) Mean Corpuscular Hemoglobin Concent 33 g/dL (31-37) Red Cell Distribution Width 14.2 % (11.5-14.5) Platelet Count 258 x10^3/uL (140-400) Neutrophils (%) (Auto) 74 % (31-73) H Lymphocytes (%) (Auto) 13 % (24-48) L Monocytes (%) (Auto) 10 % (0-9) H Eosinophils (%) (Auto) 2 % (0-3) Basophils (%) (Auto) 1 % (0-3) Neutrophils # (Auto) 4.3 x10^3uL (1.8-7.7) Lymphocytes # (Auto) 0.8 x10^3/uL (1.0-4.8) L Monocytes # (Auto) 0.6 x10^3/uL (0.0-1.1) Eosinophils # (Auto) 0.1 x10^3/uL (0.0-0.7) Basophils # (Auto) 0.0 x10^3/uL (0.0-0.2) Sodium Level 141 mmol/L (136-145) Potassium Level 4.3 mmol/L (3.5-5.1) Chloride Level 103 mmol/L (98-107) Carbon Dioxide Level 31 mmol/L (21-32) Anion Gap 7 (6-14) Blood Urea Nitrogen 11 mg/dL (7-20) Creatinine 0.8 mg/dL (0.6-1.0) Estimated GFR (Cockcroft-Gault) 67.7 BUN/Creatinine Ratio 14 (6-20) Glucose Level 92 mg/dL (70-99) Calcium Level 9.3 mg/dL (8.5-10.1) Total Bilirubin 0.3 mg/dL (0.2-1.0) Aspartate Amino Transferase (AST) 19 U/L (15-37) Alanine Aminotransferase (ALT) 22 U/L (14-59) Alkaline Phosphatase 80 U/L (46-116) Total Protein 7.4 g/dL (6.4-8.2) Albumin 3.7 g/dL (3.4-5.0) Albumin/Globulin Ratio 1.0 (1.0-1.7) Valproic Acid Level 69 mcg/mL (50-100) Valproic Acid Last Dose Date 03/30/19 Valproic Acid Last Dose Time 2100 Current Medications: Meds: Current Medications Medications (Trade) Dose Ordered Sig/Mickey Route PRN Reason Start Time Stop Time Status Last Admin Dose Admin Mirtazapine (Remeron) 7.5 mg QHS PO 03/31/19 21:00 03/31/19 21:03 I have reviewed the current psychotropics carefully including drug interactions. Risk benefit ratio favors no change other than as noted in my dictated progress note. Diagnosis: Problems: (1) Major depressive disorder, recurrent episode (2) Mild cognitive disorder (3) Dementia, vascular, with depression (4) Bipolar disorder with depression (5) Major neurocognitive disorder HECTOR AL MD Mar 31, 2019 21:56
--- NOTE | 2019-03-31 23:16 | PN ---
DATE: 03/29/2019 PSYCHIATRIC PROGRESS NOTE This late entry 03/29/2019 covers elements not covered in my initial note. SUBJECTIVE: I met with the patient evening of 03/29/2019. Per ROSE MARY Hirsch, the patient slept 7-1/4 hours previous night. She has been anxious, somewhat suspicious and paranoid, but perhaps a little better than before. Valproic acid level was 7, subtherapeutic. We have increased the Depakote. Repeat labs on the . By the evening when I met with her, per nursing report, she was doing even better. REVIEW OF SYSTEMS: Ambulation impaired with walker. No CV, , pulmonary, eye, ENT system symptoms on review. MENTAL STATUS EXAMINATION: Oriented to herself and situation. Speech is coherent, abstraction fair, computation impaired, language function intact, attention span short. Mood and affect remain somewhat anxious, labile, but showing improvement. LABORATORY DATA: Reviewed. IMPRESSION: Unchanged from initial note. PLAN: No change from initial note other than adjusting the Depakote. Rest unchanged for now including Exelon patch, Namenda, melatonin, Zoloft and Seroquel. HECTOR AL MD DR: RENO/angelic JOB#: [id number] / [id number]
--- NOTE | 2019-03-31 23:47 | PN ---
DATE: 03/30/2019 PSYCHIATRIC PROGRESS NOTE This late entry 03/30/2019 covers elements not covered in my initial note. SUBJECTIVE: I met with the patient in the evening. The patient slept 8 hours previous night. She has been anxious, but more appropriate, less mood lability is evident. Apparently, she was not upset and obsessed about somatic symptoms as before. Conversations about her daughter are very positive for her and staff intervened with this successfully. REVIEW OF SYSTEMS: Ambulation impaired, with walker. No CV, , pulmonary, eye system symptoms on review. MENTAL STATUS EXAM: Reasonably oriented. Speech is coherent, less pressured. Abstraction fair, computation impaired, language function intact. Mood and affect, lability is improved. LABORATORY DATA: Reviewed. IMPRESSION: Unchanged from initial note. PLAN: No change from initial note. MAN Hector AL MD DR: RENO/angelic JOB#: [id number] / [id number]
--- NOTE | 2019-04-01 00:26 | NUR ---
Last evening pt sat in day room dozing and watching TV. When meds offered pt wanted to take them at 1 minute till ten "the dr told me to take them at 10" After some discussion and reassurance pt took them whole without difficulty. After going to bed she was awake for awhile but is now sleeping.
[2019-04-01 06:33] VITALS: BP 143/83
[2019-04-01] MEDS: ASPIRIN 325 MG TABLET PO SCH (08:23)
[2019-04-01] MEDS: DIVALPROEX 125 MG CAP.SPRINK PO SCH ×4 (08:24→19:27)
[2019-04-01] MEDS: MEMANTINE 10 MG TABLET. PO SCH ×2 (08:24→19:27)
[2019-04-01] MEDS: GLUCOSAMINE/CHOND 500/400MG CAPSULE PO SCH ×2 (08:24→19:26)
[2019-04-01] MEDS: ATORVASTATIN CALCIUM 20 MG TABLET PO SCH (08:24)
[2019-04-01] MEDS: QUEtiapine 25 MG TABLET. PO SCH ×2 (08:24→16:30)
[2019-04-01] MEDS: amLODIPine BESYLATE 5 MG TABLET PO SCH (08:24)
[2019-04-01] MEDS: OXYBUTYNIN CHLORIDE 5 MG TABLET PO SCH ×2 (08:24→19:27)
[2019-04-01] MEDS: MULTIVITAMIN with MINERAL TABLET. PO SCH (08:24)
[2019-04-01] MEDS: CALCIUM CARB/VIT D3 500/200 TABLET PO SCH (08:24)
[2019-04-01] MEDS: RIVASTIGMINE 9.5MG PATCH. TD SCH (08:25)
[2019-04-01] MEDS: CHOLECALCIFEROL (VITAMIN D3) 1,000 UNIT TABLET PO SCH (08:25)
[2019-04-01] MEDS: SERTRALINE 25 MG TABLET. PO SCH (08:25)
--- NOTE | 2019-04-01 11:18 | NUR ---
Pt is cooperative, compliant and less anxious today than yesterday. No agitation, no aggression, no hallucinations, no delusions. She is compliant with her medications and assessment.
[2019-04-01 16:08] VITALS: BP 114/69
[2019-04-01] MEDS: MIRTAZAPINE 7.5 MG TABLET. PO SCH (19:27)
[2019-04-01] MEDS: MELATONIN 3 MG TABLET PO SCH (19:27)
--- NOTE | 2019-04-01 21:23 | PDOC ---
Exam Note: Sony Note: Please also refer to the separate dictated note~for this date of service dictated separately.~Patient seen individually. Discussed the patient with Nursing staff reviewed the chart.~Reviewed interim history and current functioning. Reviewed vital signs,~Labs/ Radiology~and current medications noted below. Continue current treatment with the changes noted in the dictated addendum note Assessment: Vital Signs/I&O: Vital Signs Date Time Temp Pulse Resp B/P (MAP) Pulse Ox O2 Delivery O2 Flow Rate FiO2 04/01/19 16:08 98.0 80 20 114/69 (84) 97 03/31/19 06:01 Room Air I & O 03/31/19 03/31/19 04/01/19 15:00 23:00 07:00 Intake Total 720 ml 360 ml Balance 720 ml 360 ml Current Medications: I have reviewed the current psychotropics carefully including drug interactions. Risk benefit ratio favors no change other than as noted in my dictated progress note. Diagnosis: Problems: (1) Major depressive disorder, recurrent episode (2) Mild cognitive disorder (3) Dementia, vascular, with depression (4) Bipolar disorder with depression (5) Major neurocognitive disorder HECTOR AL MD Apr 01, 2019 21:23
--- NOTE | 2019-04-01 22:50 | NUR ---
This evening pt was in day room visiting with a peer. She was initally reluctant to take meds saying she took a sleeping pill in the day time today. After taking meds she urgently went to bed saying she was falling to sleep on her feet. She was assisted with HS prep and has been sleeping since.
--- NOTE | 2019-04-02 03:26 | PN ---
DATE: 03/31/2019 This late entry, 03/31, covers elements not covered in my initial note. SUBJECTIVE: I met with the patient evening of 03/31. Per ROSE MARY Guadarrama, the patient slept 1-1/2 hours previous night. Her daughter visited and this was very positive for the patient. She is less anxious, still with ongoing mood lability, but able to sit and watch a television show, which is something she could not do previously. REVIEW OF SYSTEMS: Ambulation impaired with walker. No CV, , pulmonary, eye, ENT system symptoms on review. MENTAL STATUS EXAM: Reasonably oriented. Speech is coherent, less pressured. Abstraction fair, computation impaired, language function intact, attention span short. Mood and affect less anxious and labile. LABORATORY DATA: Reviewed. No suicidal ideation. IMPRESSION: Unchanged from initial note. PLAN: No change from initial note. MAN Hector AL MD DR: RENO/angelic JOB#: [id number] / [id number]
[2019-04-02 05:58] VITALS: BP 158/77
[2019-04-02] MEDS: CHOLECALCIFEROL (VITAMIN D3) 1,000 UNIT TABLET PO SCH (08:30)
[2019-04-02] MEDS: CALCIUM CARB/VIT D3 500/200 TABLET PO SCH (08:30)
[2019-04-02] MEDS: MULTIVITAMIN with MINERAL TABLET. PO SCH (08:30)
[2019-04-02] MEDS: GLUCOSAMINE/CHOND 500/400MG CAPSULE PO SCH ×2 (08:30→20:29)
--- NOTE | 2019-04-02 10:03 | NUR ---
Patient appeared very anxious (crying and wringing her hands) at breakfast and was complaining about sleeping pills and stating that she knows that "they gave her sleeping medications in the day time" yesterday. She began to vomit clear mucous. Tech's stated anxiety at meals and then choking is her usual daily behavior. Patient then in hallway with basin where she continued to spit out mucous and state "I am so anxious". Nurse held medications while patient was vomiting and then patient had returned to bed before taking morning medications. Patient appears to be sleeping when nurse checked on her. Nurse will give morning medications when patient wakes up or at 1030.
[2019-04-02] MEDS: DIVALPROEX 125 MG CAP.SPRINK PO SCH ×5 (10:53→20:29)
[2019-04-02] MEDS: OXYBUTYNIN CHLORIDE 5 MG TABLET PO SCH ×2 (10:54→20:29)
[2019-04-02] MEDS: amLODIPine BESYLATE 5 MG TABLET PO SCH (10:54)
[2019-04-02] MEDS: MEMANTINE 10 MG TABLET. PO SCH ×2 (10:54→20:28)
[2019-04-02] MEDS: ASPIRIN 325 MG TABLET PO SCH (10:54)
[2019-04-02] MEDS: RIVASTIGMINE 9.5MG PATCH. TD SCH (10:54)
[2019-04-02] MEDS: ATORVASTATIN CALCIUM 20 MG TABLET PO SCH (10:54)
[2019-04-02] MEDS: QUEtiapine 25 MG TABLET. PO SCH ×3 (10:55→17:17)
[2019-04-02] MEDS: SERTRALINE 25 MG TABLET. PO SCH (10:55)
--- NOTE | 2019-04-02 11:11 | NUR ---
Patient picking through her morning medications and asking what each pill is for. She stated that yesterday she took a sleeping pill in the daytime. Nurse assured her that we don't give sleeping pills in the daytime and she said that she had it in her bed from the night before. During todays medication administration, the patient took the Depakote sprinkle capsule out of the pill cup and attempted to hide it between her legs. Nurse asked patient to give the pill back and patient refused. Patient eventually handed the pill over after this nurse promised to "get it myself". Nurse held vitamins and glucosamine as patient had been nauseated this morning and since patient is reluctant to take medications this morning. Nurse ensured that patient had taken and swallowed her medications. Patient is now stating that she is nauseated and might throw them back up. She continued to refuse to take the depakote. Will hide 1300 depakote in patient lunch. Patient tearful and anxious. She stated she is crying because her daughter put her cat to sleep before she came here. Patient thinks that she lives here now. Re-assured patient that this is a hospital and no one "lives here". Patient requesting to call daughter, as she is tearful right now, nurse we will wait until later to make phone calls.
--- NOTE | 2019-04-02 12:33 | NUR ---
patient in dining room, tearful and asking to make phone calls to her daughter.
--- NOTE | 2019-04-02 13:13 | PN ---
DATE: 04/01/2019 PSYCHIATRIC PROGRESS NOTE This late entry 04/01/2019 covers elements not covered in my initial note. SUBJECTIVE: I met with the patient in the evening of 04/01/2019. Per ROSE MARY Romero, the patient slept 6-1/2 hours previous night. She did well at night, was somewhat anxious in the evening. Complains of her head feeling fuzzy with the daytime medications. She states she takes a sleeping pill in the morning, which is not true, but it is difficult to have her see this. REVIEW OF SYSTEMS: In addition to above, positive for impaired ambulation with walker. No CV, , pulmonary, eye system symptoms on review. MENTAL STATUS EXAMINATION: The patient is reasonably oriented. Speech is coherent, rapid at times, still somewhat anxious with mood lability little worse on 04/01/2019 as compared to the previous day. Attention span short. Language function intact. No active suicidal or homicidal ideation. LABORATORY DATA: Reviewed. IMPRESSION: Bipolar disorder, mixed; mild cognitive impairment; anxiety disorder, unspecified. PLAN: Valproic acid level therapeutic at 69. Continue her current psychotropics, Exelon patch, Namenda, melatonin, Zoloft, trazodone, Depakote and Seroquel. Adjust further as clinically indicated. She also gets Remeron 7.5 mg at bedtime for insomnia. Insomnia seems to have responded well to this. HECTOR AL MD DR: RENO/angelic JOB#: [id number] / [id number]
[2019-04-02 15:47] VITALS: BP 97/60
--- NOTE | 2019-04-02 17:18 | NUR ---
patient refusing to take [id number] seroquel. She stated she had a good visit with her daughter but she "still isn't going to take that". Addendum: 04/02/19 at 1719 by ELIZABETH HICKMAN RN Correction: refused 1700 seroquel.
[2019-04-02] MEDS: traZODone 50 MG TABLET. PO PRN (20:28)
[2019-04-02] MEDS: MELATONIN 3 MG TABLET PO SCH (20:28)
[2019-04-02] MEDS: MIRTAZAPINE 7.5 MG TABLET. PO SCH (20:28)
--- NOTE | 2019-04-02 21:16 | PDOC ---
Exam Note: Sony Note: Please also refer to the separate dictated note~for this date of service dictated separately.~Patient seen individually. Discussed the patient with Nursing staff reviewed the chart.~Reviewed interim history and current functioning. Reviewed vital signs,~Labs/ Radiology~and current medications noted below. Continue current treatment with the changes noted in the dictated addendum note Assessment: Vital Signs/I&O: Vital Signs Date Time Temp Pulse Resp B/P (MAP) Pulse Ox O2 Delivery O2 Flow Rate FiO2 04/02/19 15:47 98.5 72 16 97/60 (72) 98 03/31/19 06:01 Room Air I & O 04/01/19 04/01/19 04/02/19 15:00 23:00 07:00 Intake Total 840 ml 240 ml Balance 840 ml 240 ml Current Medications: I have reviewed the current psychotropics carefully including drug interactions. Risk benefit ratio favors no change other than as noted in my dictated progress note. Diagnosis: Problems: (1) Major depressive disorder, recurrent episode (2) Mild cognitive disorder (3) Dementia, vascular, with depression (4) Bipolar disorder with depression (5) Major neurocognitive disorder HECTOR AL MD Apr 02, 2019 21:16
--- NOTE | 2019-04-02 23:07 | NUR ---
Nursing Note The patient was very anxious this shift and initially refused to take her medications. The patient was obsessed over the HS medications and believed that she would sleep all day if she took them. The patient did take her medication eventually and was able to take her medication whole. The patient is currently sleeping in her room. The patient was given PRN Trazodone with her HS medication.
[2019-04-03 05:41] VITALS: BP 125/69
[2019-04-03] MEDS: ASPIRIN 325 MG TABLET PO SCH (08:59)
[2019-04-03] MEDS: GLUCOSAMINE/CHOND 500/400MG CAPSULE PO SCH ×2 (08:59→20:22)
[2019-04-03] MEDS: MULTIVITAMIN with MINERAL TABLET. PO SCH (08:59)
[2019-04-03] MEDS: MEMANTINE 10 MG TABLET. PO SCH ×2 (09:00→20:22)
[2019-04-03] MEDS: RIVASTIGMINE 9.5MG PATCH. TD SCH (09:00)
[2019-04-03] MEDS: QUEtiapine 25 MG TABLET. PO SCH ×3 (09:00→20:22)
[2019-04-03] MEDS: amLODIPine BESYLATE 5 MG TABLET PO SCH (09:01)
[2019-04-03] MEDS: SERTRALINE 50 MG TABLET. PO SCH (09:01)
[2019-04-03] MEDS: CALCIUM CARB/VIT D3 500/200 TABLET PO SCH (09:01)
[2019-04-03] MEDS: CHOLECALCIFEROL (VITAMIN D3) 1,000 UNIT TABLET PO SCH (09:01)
[2019-04-03] MEDS: ATORVASTATIN CALCIUM 20 MG TABLET PO SCH (09:01)
[2019-04-03] MEDS: DIVALPROEX 125 MG CAP.SPRINK PO SCH ×4 (09:01→20:22)
[2019-04-03] MEDS: OXYBUTYNIN CHLORIDE 5 MG TABLET PO SCH ×2 (09:02→20:22)
--- NOTE | 2019-04-03 10:12 | NUR ---
Patient was very tearful after breakfast stating "I don't want to discharge today". Nurse reassured patient that she was NOT on the discharge list. Patient continued to perseverate about discharging, stating "I'm not ready". Staff encouraged patient to come to day room. Patient was observed sitting in chair sleeping in day room. Patient was compliant with medications taken whole, no resistiveness noted today. Patient continues to ask for hot chocolate during meals and prefers to drink rather than eat at meals.
[2019-04-03 15:50] VITALS: BP 120/73
--- NOTE | 2019-04-03 15:53 | NUR ---
SELINA contacted Marika at [facility] to give her an update on pt behaviors. Pt continues to be very anxious, at times tearful and repetitive in her questions and statement. Marika asked if they were more panic attack type behaviors and SELINA reports that pt is describing them that way. SELINA and Clarissa discussed the fact that pt cannot return to [facility] in that condition and will have the conversation with pt that she will need more of a higher level of care at discharge. SELINA will continue to keep Marika up to date.
--- NOTE | 2019-04-03 16:05 | NUR ---
Pt was very anxious and tearful in the day room. After multiple unsuccessful attempts at redirection, PRN was given. Will continue to monitor.
[2019-04-03] MEDS: MIRTAZAPINE 7.5 MG TABLET. PO SCH (20:22)
[2019-04-03] MEDS: MELATONIN 3 MG TABLET PO SCH (20:22)
--- NOTE | 2019-04-03 21:18 | PDOC ---
Exam Note: Sony Note: Please also refer to the separate dictated note~for this date of service dictated separately.~Patient seen individually. Discussed the patient with Nursing staff reviewed the chart.~Reviewed interim history and current functioning. Reviewed vital signs,~Labs/ Radiology~and current medications noted below. Continue current treatment with the changes noted in the dictated addendum note Assessment: Vital Signs/I&O: Vital Signs Date Time Temp Pulse Resp B/P (MAP) Pulse Ox O2 Delivery O2 Flow Rate FiO2 04/03/19 15:50 97.6 83 18 120/73 (89) 98 03/31/19 06:01 Room Air I & O 04/02/19 04/02/19 04/03/19 15:00 23:00 07:00 Intake Total 300 ml 200 ml Balance 300 ml 200 ml Current Medications: Meds: Current Medications Medications (Trade) Dose Ordered Sig/Mickey Route PRN Reason Start Time Stop Time Status Last Admin Dose Admin Sertraline HCl (Zoloft) 50 mg DAILY PO 04/03/19 09:00 04/03/19 09:01 Quetiapine Fumarate (SEROquel) 12.5 mg QID PO 04/03/19 17:00 04/03/19 20:22 I have reviewed the current psychotropics carefully including drug interactions. Risk benefit ratio favors no change other than as noted in my dictated progress note. Diagnosis: Problems: (1) Major depressive disorder, recurrent episode (2) Mild cognitive disorder (3) Dementia, vascular, with depression (4) Bipolar disorder with depression (5) Major neurocognitive disorder HECTOR AL MD Apr 03, 2019 21:18
--- NOTE | 2019-04-03 22:18 | PN ---
DATE: 04/02/2019 PSYCHIATRIC PROGRESS NOTE This late entry 04/02/2019 covers elements not covered in my initial note. SUBJECTIVE: I met with the patient evening of 04/02/2019. Per ROSE MARY Eric, the patient has been quite anxious. She made herself vomit after breakfast and was having panic attacks after that. Refused Depakote, was trying to hide it between her legs. She slept 7-3/4 hours previous night, quite obsessive, repetitive. REVIEW OF SYSTEMS: Ambulation impaired with walker. She has vague somatic symptoms. No CV, , pulmonary, eye, ENT system symptoms on review. Reliability varies. MENTAL STATUS EXAM: Oriented to herself and situation. Speech has some latency, coherent, rapid at times. Abstraction fair, computation impaired, language function intact. Mood and affect remains somewhat labile. LABORATORY DATA: Reviewed. IMPRESSION: Unchanged from initial note. Bipolar disorder, mixed with psychotic features; anxiety disorder unspecified. PLAN: Increase Zoloft from 25 mg a day to 50 mg a day, continue. Depakote level is therapeutic at 69. Maintain Namenda, Exelon, melatonin, Seroquel 12.5 mg twice a day, may need to be adjusted. Rest unchanged for now. HECTOR AL MD DR: RENO/angelic JOB#: [id number] / [id number]
--- NOTE | 2019-04-03 22:59 | NUR ---
Nursing Note The patient was located in her room for her assessment and medication pass. The patient was visibly anxious when approached by this nurse and was somewhat agitated initially during her interactions with this nurse but did seem to calm down after her assessment and receiving her medications. The patient is currently sleeping in her room.
[2019-04-04 06:06] VITALS: BP 119/72
[2019-04-04] MEDS: QUEtiapine 25 MG TABLET. PO SCH ×4 (08:38→20:36)
[2019-04-04] MEDS: MULTIVITAMIN with MINERAL TABLET. PO SCH (08:38)
[2019-04-04] MEDS: ASPIRIN 325 MG TABLET PO SCH (08:39)
[2019-04-04] MEDS: amLODIPine BESYLATE 5 MG TABLET PO SCH (08:39)
[2019-04-04] MEDS: MEMANTINE 10 MG TABLET. PO SCH ×2 (08:39→20:36)
[2019-04-04] MEDS: CHOLECALCIFEROL (VITAMIN D3) 1,000 UNIT TABLET PO SCH (08:39)
[2019-04-04] MEDS: ATORVASTATIN CALCIUM 20 MG TABLET PO SCH (08:39)
[2019-04-04] MEDS: OXYBUTYNIN CHLORIDE 5 MG TABLET PO SCH ×2 (08:39→20:36)
[2019-04-04] MEDS: DIVALPROEX 125 MG CAP.SPRINK PO SCH ×4 (08:39→20:36)
[2019-04-04] MEDS: GLUCOSAMINE/CHOND 500/400MG CAPSULE PO SCH ×2 (08:39→20:36)
[2019-04-04] MEDS: RIVASTIGMINE 9.5MG PATCH. TD SCH (08:40)
[2019-04-04] MEDS: CALCIUM CARB/VIT D3 500/200 TABLET PO SCH (08:40)
[2019-04-04] MEDS: SERTRALINE 50 MG TABLET. PO SCH (08:40)
--- NOTE | 2019-04-04 09:31 | NUR ---
Patient states she is anxious and didn't sleep last night. Sleep records show that she did sleep. Patient compliant with medications taken whole with juice. After breakfast, patient was observed to be falling asleep in a chair in the day room. Patient then got up stating she was going to her room to take a nap. Patient has not been tearful yet this morning.
--- NOTE | 2019-04-04 10:23 | NUR ---
WEEKLY ACTIVITY THERAPY NOTE Date of Admission: 03/20/2018 Date of AT Assessment: 03/23/2019 Goal aimed: to reduce stress and increase engagement Initial Goal: Pt. will participate in at least five Activity Therapy groups per week. Weekly progress towards goal: achieved 11/24 Group participation level: 1 min, 4 mod, 5 full Weekly highlights: Behaviors observed: similar to last week- anxious, wandering, requesting to call her daughter Plan: change goal to: Pt. will participate in at least one Activity Therapy group per day Beneficial adaptations: direct support with reminders/ reassurance, politely change/redirect subject to task at hand during anxious moments, note secured to walker for reminders
--- NOTE | 2019-04-04 14:11 | NUR ---
Patient reluctant to take afternoon medications. She said "oh I feel so drugged". Nurse assured her that doctor and pharmacist have reviewed her medications. She eventually took them.
--- NOTE | 2019-04-04 14:57 | NUR ---
WEEKLY NOTE: Pt is eating 85% and sleeping on average 6 hours a night. Pt continues to be highly anxious and needs redirection for her these behaviors. Pt believes that we are making her discharge today, and asks multiple questions in a repetitive manner. Pt is on Zoloft 50mg daily and will have that switched over to Luvox 25mg for 3 days then increase to 50mg. Pt is on Seroquel 12.5mg QID. Pt is not able to return to [facility] in the current condition that she is in; SW will talk to pt dtr about this and look towards a discharge towards the end of next week if not the beginning of the week after. SW will aid pt dtr in finding new placement.
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
[2019-04-04 16:14] VITALS: BP 126/70
--- NOTE | 2019-04-04 16:14 | NUR ---
SELINA contacted pt dtr, Eliseo, to go over tx team and the discussion about changing pt medication to help with ruminating thoughts and hopefully decreasing pt anxiety. Pt dtr reports that she did have a talk with [facility] and they [place] able [place] and [place]. SELINA agreed and explained to pt dtr that they can provide more care for pt and can provide more resources to keep pt busy while there with activities and the aides. SELINA and pt dtr discussed starting the process next week as pt is receiving a new medication in hopes to give it a chance to "kick in" before sending out the referral. SELINA was able to inform pt dtr that [facility] would be the end of next week if not the beginning of the week after next. Pt dtr just wants to make sure that pt is able to decrease her anxiety and prevent an immediate return back for care. SELINA will plan to follow up with Elsieo on Monday.
[2019-04-04] MEDS: MIRTAZAPINE 7.5 MG TABLET. PO SCH (20:36)
[2019-04-04] MEDS: MELATONIN 3 MG TABLET PO SCH (20:36)
--- NOTE | 2019-04-04 21:26 | PDOC ---
Exam Note: Sony Note: Please also refer to the separate dictated note~for this date of service dictated separately.~Patient seen individually. Discussed the patient with Nursing staff reviewed the chart.~Reviewed interim history and current functioning. Reviewed vital signs,~Labs/ Radiology~and current medications noted below. Continue current treatment with the changes noted in the dictated addendum note Assessment: Vital Signs/I&O: Vital Signs Date Time Temp Pulse Resp B/P (MAP) Pulse Ox O2 Delivery O2 Flow Rate FiO2 04/04/19 16:14 97.6 74 16 126/70 (88) 99 03/31/19 06:01 Room Air I & O 04/03/19 04/03/19 04/04/19 15:00 23:00 07:00 Intake Total 420 ml 240 ml Balance 420 ml 240 ml Current Medications: Meds: Current Medications Medications (Trade) Dose Ordered Sig/Mickey Route PRN Reason Start Time Stop Time Status Last Admin Dose Admin Fluvoxamine Maleate (Luvox) 25 mg DAILY PO 04/04/19 12:00 04/04/19 14:10 I have reviewed the current psychotropics carefully including drug interactions. Risk benefit ratio favors no change other than as noted in my dictated progress note. Diagnosis: Problems: (1) Major depressive disorder, recurrent episode (2) Mild cognitive disorder (3) Dementia, vascular, with depression (4) Bipolar disorder with depression (5) Major neurocognitive disorder HECTOR AL MD Apr 04, 2019 21:26
[2019-04-05 06:21] VITALS: BP 146/78
[2019-04-05] MEDS: CALCIUM CARB/VIT D3 500/200 TABLET PO SCH (08:33)
[2019-04-05] MEDS: QUEtiapine 25 MG TABLET. PO SCH ×4 (08:33→21:26)
[2019-04-05] MEDS: DIVALPROEX 125 MG CAP.SPRINK PO SCH ×4 (08:33→21:24)
[2019-04-05] MEDS: ATORVASTATIN CALCIUM 20 MG TABLET PO SCH (08:33)
[2019-04-05] MEDS: GLUCOSAMINE/CHOND 500/400MG CAPSULE PO SCH ×2 (08:33→21:25)
[2019-04-05] MEDS: MEMANTINE 10 MG TABLET. PO SCH ×2 (08:33→21:25)
[2019-04-05] MEDS: OXYBUTYNIN CHLORIDE 5 MG TABLET PO SCH ×2 (08:33→21:25)
[2019-04-05] MEDS: MULTIVITAMIN with MINERAL TABLET. PO SCH (08:33)
[2019-04-05] MEDS: amLODIPine BESYLATE 5 MG TABLET PO SCH (08:34)
[2019-04-05] MEDS: CHOLECALCIFEROL (VITAMIN D3) 1,000 UNIT TABLET PO SCH (08:34)
[2019-04-05] MEDS: RIVASTIGMINE 9.5MG PATCH. TD SCH (08:34)
[2019-04-05] MEDS: ASPIRIN 325 MG TABLET PO SCH (08:34)
[2019-04-05 16:09] VITALS: BP 105/67
--- NOTE | 2019-04-05 18:01 | NUR ---
Pt in dining room for morning meds and assessment. Pt extremely anxious. Very resistive to taking her medications.Stated she couldn't take that many pills. Pt remained anxious throughout the day however some improvement noted.
--- NOTE | 2019-04-05 19:57 | PN ---
DATE: 04/03/2019 PSYCHIATRIC PROGRESS NOTE This late entry 04/03/2019 covers the elements not covered in my initial note. SUBJECTIVE: I met with the patient in the evening of 04/03/2019. Per ROSE MARY Eric, the patient slept 7 hours previous night. She remains quite anxious and restless. Received Zyprexa at 4:00 p.m. She is fixated that she is not going to have a place to go to that her daughter said she cannot go back to the place she was at and she has been extremely labile in her mood, anxious, almost tearful at times as I met with her. REVIEW OF SYSTEMS: Ambulation impaired with walker. No CV, , pulmonary, eye system symptoms on review. Reliability varies. MENTAL STATUS EXAM: Oriented to herself and situation. Speech is coherent, rapid at times. Abstraction fair, computation impaired, language function intact, attention span short. Mood and affect remains anxious, labile. LABORATORY DATA: Reviewed. IMPRESSION: Unchanged from initial note. PLAN: Increase the Seroquel from 12.5 mg twice a day to 12.5 mg 9 a.m., 1:00 p.m., 5:00 p.m. and 9:00 p.m. Maintain Zoloft 50 mg a day, melatonin 6 mg at bedtime, Namenda 10 mg b.i.d., Exelon patch 9.5 mg a day, trazodone and Zyprexa p.r.n., Depakote Sprinkles 125 mg 4 times a day, level therapeutic at 69. Rest unchanged for now. HECTOR AL MD DR: RENO/angelic JOB#: [id number] / [id number]
--- NOTE | 2019-04-05 20:15 | PN ---
DATE: 04/03/2019 PSYCHIATRIC PROGRESS NOTE This late entry 04/03/2019 covers elements not covered in my initial note. SUBJECTIVE: I met with the patient evening of 04/03/2019. The patient was also staffed at a treatment team meeting with the entire team in the morning. The patient slept 6 hours previous night. Appetite 75%, anxious, upset at times wants her daughter to call her and gets restless, agitated, obsessed about placement options. REVIEW OF SYSTEMS: Ambulation impaired with walker. No CV, , pulmonary, eye system symptoms on review. MENTAL STATUS EXAM: Oriented reasonably. Speech is coherent, rapid at times. Abstraction fair, computation impaired, language function intact, attention span short. Mood and affect remains anxious, labile. LABORATORY DATA: Reviewed. IMPRESSION: Bipolar disorder, mixed; anxiety disorder, unspecified; obsessive-compulsive disorder, mild cognitive impairment. PLAN: Change Zoloft to Luvox 25 mg a day, maintain; Depakote level is therapeutic. Seroquel was increased. Exelon patch, Namenda and trazodone will be continued unchanged. MAN Hector AL MD DR: RENO/angelic JOB#: [id number] / [id number]
[2019-04-05] MEDS: MIRTAZAPINE 15 MG TABLET PO SCH (21:25)
[2019-04-05] MEDS: MELATONIN 3 MG TABLET PO SCH (21:26)
--- NOTE | 2019-04-05 22:00 | NUR ---
Patient is in the day room on assumption of care, watching television. She is anxious, worried about her broken glasses. Wants to call her daughter, stating "I need to tell her about my glasses and also tell her that I pooped in my pants today." This publicity writer called the daughter to inform her of the broken glasses, then transferred her to the patient phone so the patient could speak with her. Seemed to be much less anxious after speaking to her daughter. She is compliant with medications and assessments. No agitation. Denies pain or discomfort. Denies SI.
--- NOTE | 2019-04-05 22:37 | PDOC ---
Exam Note: Sony Note: Please also refer to the separate dictated note~for this date of service dictated separately.~Patient seen individually. Discussed the patient with Nursing staff reviewed the chart.~Reviewed interim history and current functioning. Reviewed vital signs,~Labs/ Radiology~and current medications noted below. Continue current treatment with the changes noted in the dictated addendum note Assessment: Vital Signs/I&O: Vital Signs Date Time Temp Pulse Resp B/P (MAP) Pulse Ox O2 Delivery O2 Flow Rate FiO2 04/05/19 16:09 97.9 75 16 105/67 (80) 97 Room Air I & O 04/04/19 04/04/19 04/05/19 15:00 23:00 07:00 Intake Total 840 ml 240 ml 240 ml Balance 840 ml 240 ml 240 ml Current Medications: Meds: Current Medications Medications (Trade) Dose Ordered Sig/Mickey Route PRN Reason Start Time Stop Time Status Last Admin Dose Admin Mirtazapine (Remeron) 15 mg QHS PO 04/05/19 21:00 04/05/19 21:25 I have reviewed the current psychotropics carefully including drug interactions. Risk benefit ratio favors no change other than as noted in my dictated progress note. Diagnosis: Problems: (1) Major depressive disorder, recurrent episode (2) Mild cognitive disorder (3) Dementia, vascular, with depression (4) Bipolar disorder with depression (5) Major neurocognitive disorder HECTOR AL MD Apr 05, 2019 22:37
[2019-04-06 05:32] VITALS: BP 110/60
[2019-04-06 07:52] LABS: BASO % 1 % (0-3); EOS # 0.2 x10^3/uL (0.0-0.7); EOS % 4 % (0-3); HEMATOCRIT 38.2 % (36.0-47.0); HEMOGLOBIN 12.5 g/dL (12.0-15.5); LYMPH # 0.9 x10^3/uL (1.0-4.8); LYMPH % 20 % (24-48); MEAN CORPUSCULAR HEMOGLOBIN 32 pg (25-35); MEAN CORPUSCULAR HGB CONC 33 g/dL (31-37); MEAN CORPUSCULAR VOLUME 98 fL (79-100); MONO # 0.5 x10^3/uL (0.0-1.1); MONO % 11 % (0-9); NEUT # 2.7 x10^3uL (1.8-7.7); NEUT % 64 % (31-73); PLATELET COUNT 249 x10^3/uL (140-400); RED BLOOD COUNT 3.88 x10^6/uL (3.50-5.40); RED CELL DISTRIBUTION WIDTH 14.1 % (11.5-14.5); WHITE BLOOD COUNT 4.3 x10^3/uL (4.0-11.0)
[2019-04-06 08:08] LABS: ALBUMIN 3.6 g/dL (3.4-5.0); CALCIUM 9.1 mg/dL (8.5-10.1); CREATININE 0.9 mg/dL (0.6-1.0); GFR 59.1; TOTAL BILIRUBIN 0.2 mg/dL (0.2-1.0); TOTAL PROTEIN 7.2 g/dL (6.4-8.2)
[2019-04-06] MEDS: ASPIRIN 325 MG TABLET PO SCH (08:22)
[2019-04-06] MEDS: GLUCOSAMINE/CHOND 500/400MG CAPSULE PO SCH ×2 (08:23→20:30)
[2019-04-06] MEDS: ATORVASTATIN CALCIUM 20 MG TABLET PO SCH (08:23)
[2019-04-06] MEDS: MEMANTINE 10 MG TABLET. PO SCH ×2 (08:23→20:29)
[2019-04-06] MEDS: CHOLECALCIFEROL (VITAMIN D3) 1,000 UNIT TABLET PO SCH (08:23)
[2019-04-06] MEDS: amLODIPine BESYLATE 5 MG TABLET PO SCH (08:23)
[2019-04-06] MEDS: MULTIVITAMIN with MINERAL TABLET. PO SCH (08:24)
[2019-04-06] MEDS: RIVASTIGMINE 9.5MG PATCH. TD SCH (08:24)
[2019-04-06] MEDS: QUEtiapine 25 MG TABLET. PO SCH ×4 (08:24→20:30)
[2019-04-06] MEDS: OXYBUTYNIN CHLORIDE 5 MG TABLET PO SCH ×2 (08:24→20:30)
[2019-04-06] MEDS: DIVALPROEX 125 MG CAP.SPRINK PO SCH ×4 (08:24→20:30)
[2019-04-06] MEDS: CALCIUM CARB/VIT D3 500/200 TABLET PO SCH (08:24)
--- NOTE | 2019-04-06 09:38 | NUR ---
Patient calm and cooperative with medications and assessment. Patient appears to be less anxious today. Patient glasses repaired with tape and patient updated that her daughter will be bringing her new glasses. Patient has no further needs at this time.
[2019-04-06 15:42] VITALS: BP 114/68
[2019-04-06] MEDS: MIRTAZAPINE 15 MG TABLET PO SCH (20:29)
[2019-04-06] MEDS: MELATONIN 3 MG TABLET PO SCH (20:30)
--- NOTE | 2019-04-06 21:20 | PDOC ---
Exam Note: Sony Note: Please also refer to the separate dictated note~for this date of service dictated separately.~Patient seen individually. Discussed the patient with Nursing staff reviewed the chart.~Reviewed interim history and current functioning. Reviewed vital signs,~Labs/ Radiology~and current medications noted below. Continue current treatment with the changes noted in the dictated addendum note Assessment: Vital Signs/I&O: Vital Signs Date Time Temp Pulse Resp B/P (MAP) Pulse Ox O2 Delivery O2 Flow Rate FiO2 04/06/19 15:42 96.8 84 16 114/68 (83) 96 04/05/19 16:09 Room Air I & O 04/05/19 04/05/19 04/06/19 15:00 23:00 07:00 Intake Total 720 ml 240 ml Balance 720 ml 240 ml Labs: Laboratory Tests Test 04/06/19 07:27 White Blood Count 4.3 x10^3/uL (4.0-11.0) Red Blood Count 3.88 x10^6/uL (3.50-5.40) Hemoglobin 12.5 g/dL (12.0-15.5) Hematocrit 38.2 % (36.0-47.0) Mean Corpuscular Volume 98 fL (79-100) Mean Corpuscular Hemoglobin 32 pg (25-35) Mean Corpuscular Hemoglobin Concent 33 g/dL (31-37) Red Cell Distribution Width 14.1 % (11.5-14.5) Platelet Count 249 x10^3/uL (140-400) Neutrophils (%) (Auto) 64 % (31-73) Lymphocytes (%) (Auto) 20 % (24-48) L Monocytes (%) (Auto) 11 % (0-9) H Eosinophils (%) (Auto) 4 % (0-3) H Basophils (%) (Auto) 1 % (0-3) Neutrophils # (Auto) 2.7 x10^3uL (1.8-7.7) Lymphocytes # (Auto) 0.9 x10^3/uL (1.0-4.8) L Monocytes # (Auto) 0.5 x10^3/uL (0.0-1.1) Eosinophils # (Auto) 0.2 x10^3/uL (0.0-0.7) Basophils # (Auto) 0.0 x10^3/uL (0.0-0.2) Sodium Level 142 mmol/L (136-145) Potassium Level 4.0 mmol/L (3.5-5.1) Chloride Level 104 mmol/L (98-107) Carbon Dioxide Level 31 mmol/L (21-32) Anion Gap 7 (6-14) Blood Urea Nitrogen 13 mg/dL (7-20) Creatinine 0.9 mg/dL (0.6-1.0) Estimated GFR (Cockcroft-Gault) 59.1 BUN/Creatinine Ratio 14 (6-20) Glucose Level 88 mg/dL (70-99) Calcium Level 9.1 mg/dL (8.5-10.1) Total Bilirubin 0.2 mg/dL (0.2-1.0) Aspartate Amino Transferase (AST) 17 U/L (15-37) Alanine Aminotransferase (ALT) 22 U/L (14-59) Alkaline Phosphatase 87 U/L (46-116) Total Protein 7.2 g/dL (6.4-8.2) Albumin 3.6 g/dL (3.4-5.0) Albumin/Globulin Ratio 1.0 (1.0-1.7) Current Medications: I have reviewed the current psychotropics carefully including drug interactions. Risk benefit ratio favors no change other than as noted in my dictated progress note. Diagnosis: Problems: (1) Major depressive disorder, recurrent episode (2) Mild cognitive disorder (3) Dementia, vascular, with depression (4) Bipolar disorder with depression (5) Major neurocognitive disorder HECTOR AL MD Apr 06, 2019 21:20
--- NOTE | 2019-04-06 23:02 | NUR ---
Pt extremely anxious at the beginning of shift, up at the nurses station numerous times. Pt stated "don't wake me up for breakfast in the morning. I'm too tired." Pt then came back to the station, stating "never mind. Wake me up." Pt did this repeatedly, each time being asked to go to the dayroom to watch the evening movie. Pt restless and unable to sit still for the movie. When approached for HS medications, pt continued to be anxious and tearful. Pt ruminating on the fact that she "flushed the toilet without going pee. Now I'm going to pee my pants tonight. I can't believe I flushed the toilets without peeing first. Yesterday I pooped my pants and today I am going to pee my pants." Pt explained that staff will help her if she does indeed have an accident. Pt continued to be tearful during medication administration. Pt resistive, but eventually compliant with whole medications. Pt's mouth checked for pocketing of meds. Pt currently sleeping in bed.
[2019-04-07 05:40] VITALS: BP 124/65
[2019-04-07] MEDS: DIVALPROEX 125 MG CAP.SPRINK PO SCH ×4 (08:36→20:20)
[2019-04-07] MEDS: CALCIUM CARB/VIT D3 500/200 TABLET PO SCH (08:36)
[2019-04-07] MEDS: CHOLECALCIFEROL (VITAMIN D3) 1,000 UNIT TABLET PO SCH (08:36)
[2019-04-07] MEDS: MULTIVITAMIN with MINERAL TABLET. PO SCH (08:36)
[2019-04-07] MEDS: MEMANTINE 10 MG TABLET. PO SCH ×2 (08:36→20:20)
[2019-04-07] MEDS: ATORVASTATIN CALCIUM 20 MG TABLET PO SCH (08:36)
[2019-04-07] MEDS: QUEtiapine 25 MG TABLET. PO SCH ×4 (08:36→20:20)
[2019-04-07] MEDS: GLUCOSAMINE/CHOND 500/400MG CAPSULE PO SCH ×2 (08:37→20:20)
[2019-04-07] MEDS: OXYBUTYNIN CHLORIDE 5 MG TABLET PO SCH ×2 (08:37→20:20)
[2019-04-07] MEDS: ASPIRIN 325 MG TABLET PO SCH (08:37)
[2019-04-07] MEDS: RIVASTIGMINE 9.5MG PATCH. TD SCH (08:37)
[2019-04-07] MEDS: amLODIPine BESYLATE 5 MG TABLET PO SCH (08:37)
--- NOTE | 2019-04-07 09:11 | NUR ---
Patient appear more lethargic and anxious this morning. She ate breakfast quickly and head back to bed to rest. Patient is worried that she took her sleeping pill to late and that is the reason she is tired. Patient encouraged to join the other residents in the day room.
[2019-04-07 15:25] VITALS: BP 113/71
[2019-04-07] MEDS: MIRTAZAPINE 15 MG TABLET PO SCH (20:20)
[2019-04-07] MEDS: MELATONIN 3 MG TABLET PO SCH (20:21)
--- NOTE | 2019-04-07 21:15 | PDOC ---
Exam Note: Sony Note: Please also refer to the separate dictated note~for this date of service dictated separately.~Patient seen individually. Discussed the patient with Nursing staff reviewed the chart.~Reviewed interim history and current functioning. Reviewed vital signs,~Labs/ Radiology~and current medications noted below. Continue current treatment with the changes noted in the dictated addendum note Assessment: Vital Signs/I&O: Vital Signs Date Time Temp Pulse Resp B/P (MAP) Pulse Ox O2 Delivery O2 Flow Rate FiO2 04/07/19 15:25 97.8 78 16 113/71 (85) 97 04/05/19 16:09 Room Air I & O 04/06/19 04/06/19 04/07/19 15:00 23:00 07:00 Intake Total 720 ml 480 ml Balance 720 ml 480 ml Current Medications: I have reviewed the current psychotropics carefully including drug interactions. Risk benefit ratio favors no change other than as noted in my dictated progress note. Diagnosis: Problems: (1) Major depressive disorder, recurrent episode (2) Mild cognitive disorder (3) Dementia, vascular, with depression (4) Bipolar disorder with depression (5) Major neurocognitive disorder HECTOR AL MD Apr 07, 2019 21:15
--- NOTE | 2019-04-07 22:23 | PN ---
DATE: 04/05/2019 PSYCHIATRIC PROGRESS NOTE This late entry 04/05/2019 covers elements not covered in my initial note. SUBJECTIVE: I met with the patient in the evening. Per ROSE MARY Oneal, the patient slept 3-3/4 hours previous night. She has been having some difficulty taking her medications. She was quite anxious in the morning, better later in the day. REVIEW OF SYSTEMS: Ambulation impaired with walker. No CV, , pulmonary, eye system symptoms on review. MENTAL STATUS EXAM: Oriented reasonably. Speech is coherent, has some latency, less anxious, obsessive and repetitive as compared to a couple of days earlier. Abstraction fair, computation impaired, language function intact, attention span short. Mood and affect is generally improved, less labile. LABORATORY DATA: Reviewed. IMPRESSION: Unchanged from initial note. PLAN: No change from initial note, but we will increase the Remeron from 7.5 mg at bedtime to 15 mg at bedtime due to her ongoing insomnia. HECTOR AL MD DR: RENO/angelic JOB#: [id number] / [id number]
--- NOTE | 2019-04-07 22:23 | PN ---
DATE: 04/06/2019 PSYCHIATRIC PROGRESS NOTE This late entry 04/06/2019 covers elements not covered in my initial note. SUBJECTIVE: I met with the patient evening of 04/06/2019. The patient slept 5 hours previous night. She has been less anxious at times, resistive to medications, but then accepts. REVIEW OF SYSTEMS: Ambulation impaired with walker. No CV, , pulmonary, eye, ENT system symptoms on review. MENTAL STATUS EXAM: Reasonably oriented. Speech coherent, less pressured. Abstraction fair, computation impaired, language function intact, attention span short. Mood and affect is improved. LABORATORY DATA: Reviewed. IMPRESSION: Unchanged from initial note. PLAN: No change from initial note. Valproic acid level therapeutic at 69. Continue Exelon patch, Namenda, melatonin, Luvox, trazodone, Zyprexa p.r.n., Seroquel, and Remeron. HECTOR AL MD DR: RENO/angelic JOB#: [id number] / [id number]
--- NOTE | 2019-04-07 22:39 | NUR ---
Pt continues to be anxious this shift. Pt repeatedly stating to every staff member "make sure you don't wake me up for breakfast. I'm too tired." Pt stating that she "screwed up her life" because she "took 2 sleeping pills this morning and was tired all day." This nurse attempted to explain to pt that she did not receive sleeping pills this morning. Pt also stated that her daughter is not speaking with her anymore because she "called her daughter in the middle of the night and now she is mad." Pt very resistive to HS medications, but eventually compliant.
[2019-04-08] MEDS: traZODone 50 MG TABLET. PO PRN (00:11)
[2019-04-08 06:14] VITALS: BP 117/72
[2019-04-08] MEDS: MEMANTINE 10 MG TABLET. PO SCH ×2 (08:29→20:37)
[2019-04-08] MEDS: ASPIRIN 325 MG TABLET PO SCH (08:29)
[2019-04-08] MEDS: ATORVASTATIN CALCIUM 20 MG TABLET PO SCH (08:30)
[2019-04-08] MEDS: DIVALPROEX 125 MG CAP.SPRINK PO SCH ×4 (08:30→20:38)
[2019-04-08] MEDS: GLUCOSAMINE/CHOND 500/400MG CAPSULE PO SCH ×2 (08:30→20:37)
[2019-04-08] MEDS: amLODIPine BESYLATE 5 MG TABLET PO SCH (08:30)
[2019-04-08] MEDS: OXYBUTYNIN CHLORIDE 5 MG TABLET PO SCH ×2 (08:30→20:37)
[2019-04-08] MEDS: CHOLECALCIFEROL (VITAMIN D3) 1,000 UNIT TABLET PO SCH (08:30)
[2019-04-08] MEDS: MULTIVITAMIN with MINERAL TABLET. PO SCH (08:30)
[2019-04-08] MEDS: CALCIUM CARB/VIT D3 500/200 TABLET PO SCH (08:30)
[2019-04-08] MEDS: RIVASTIGMINE 9.5MG PATCH. TD SCH (08:31)
[2019-04-08] MEDS: QUEtiapine 25 MG TABLET. PO SCH ×4 (08:33→20:38)
[2019-04-08 16:07] VITALS: BP 102/62
--- NOTE | 2019-04-08 18:12 | NUR ---
Pt had a fantastic day. She participated in group, was compliant with meds and assessment. No extreme anxiety noted. Pt pleasant and interactive with this nurse.
[2019-04-08] MEDS: MIRTAZAPINE 15 MG TABLET PO SCH (20:37)
[2019-04-08] MEDS: MELATONIN 3 MG TABLET PO SCH (20:38)
--- NOTE | 2019-04-08 21:37 | PDOC ---
Exam Note: Sony Note: Please also refer to the separate dictated note~for this date of service dictated separately.~Patient seen individually. Discussed the patient with Nursing staff reviewed the chart.~Reviewed interim history and current functioning. Reviewed vital signs,~Labs/ Radiology~and current medications noted below. Continue current treatment with the changes noted in the dictated addendum note Assessment: Vital Signs/I&O: Vital Signs Date Time Temp Pulse Resp B/P (MAP) Pulse Ox O2 Delivery O2 Flow Rate FiO2 04/08/19 16:07 98.6 74 16 102/62 (75) 97 04/05/19 16:09 Room Air I & O 04/07/19 04/07/19 04/08/19 14:59 22:59 06:59 Intake Total 960 ml 480 ml 100 ml Balance 960 ml 480 ml 100 ml Current Medications: Meds: Current Medications Medications (Trade) Dose Ordered Sig/Mickey Route PRN Reason Start Time Stop Time Status Last Admin Dose Admin Fluvoxamine Maleate (Luvox) 50 mg DAILY PO 04/08/19 09:00 04/08/19 08:33 Quetiapine Fumarate (SEROquel) 12.5 mg BID@1300,2100 PO 04/08/19 13:00 04/08/19 20:38 Quetiapine Fumarate (SEROquel) 25 mg BID@0900,1700 PO 04/08/19 09:00 04/08/19 17:20 I have reviewed the current psychotropics carefully including drug interactions. Risk benefit ratio favors no change other than as noted in my dictated progress note. Diagnosis: Problems: (1) Major depressive disorder, recurrent episode (2) Mild cognitive disorder (3) Dementia, vascular, with depression (4) Bipolar disorder with depression (5) Major neurocognitive disorder HECTOR AL MD Apr 08, 2019 21:37
--- NOTE | 2019-04-08 22:49 | NUR ---
Pt located in the dayroom sitting calmly and watching a movie. Pt pleasant and compliant with HS medications without hesitation. This RN discussed with pt about what a great day she had. Pt stated that she felt really good today. Pt much less anxious than previous evenings; however slightly anxious regarding her new roommate. Pt able to be redirected and resting calmly in her room.
--- NOTE | 2019-04-09 00:28 | PN ---
DATE: 04/07/2019 PSYCHIATRIC PROGRESS NOTE This late entry 04/07/2019 covers the elements not covered in my initial note. SUBJECTIVE: I met with the patient in the evening of 04/07/2019. Per ROSE MARY Rowe, the patient was quite anxious in the evening, tearful at night and then anxious all day on 04/07/2019. She is fixated that she took a sleeping pill by error in the morning and that is why she has been tired all day. In fact, she has not been tired per nursing report. REVIEW OF SYSTEMS: Ambulation impaired with walker. No CV, , pulmonary, eye system symptoms on review. She has vague somatic symptoms. MENTAL STATUS EXAM: Reasonably oriented. Speech coherent, rapid at times. Abstraction fair, computation impaired, language function intact, attention span short. Mood and affect remains anxious, labile. LABORATORY DATA: Reviewed. IMPRESSION: Bipolar disorder, mixed with psychotic features; anxiety disorder, unspecified. PLAN: The patient has been quite obsessive after she has been on Luvox 25 mg a day for 3 days, we will increase to 50 mg a day. She is currently on Seroquel 12.5 mg 4 times a day. We will increase the first and third dosage to 25 mg. Continue the other 2 dosages 12.5 mg. Maintain Remeron 15 mg at bedtime, Depakote 125 mg q.i.d. Valproic acid level therapeutic at 69, Exelon patch 9.5 mg a day, melatonin 6 mg at bedtime, Namenda 10 mg twice a day. Adjust further as clinically indicated. HECTOR AL MD DR: RENO/angelic JOB#: [id number] / [id number]
[2019-04-09 06:31] VITALS: BP 143/82
[2019-04-09] MEDS: QUEtiapine 25 MG TABLET. PO SCH ×4 (09:30→19:52)
[2019-04-09] MEDS: ATORVASTATIN CALCIUM 20 MG TABLET PO SCH (09:30)
[2019-04-09] MEDS: CHOLECALCIFEROL (VITAMIN D3) 1,000 UNIT TABLET PO SCH (09:30)
[2019-04-09] MEDS: DIVALPROEX 125 MG CAP.SPRINK PO SCH ×4 (09:30→19:52)
[2019-04-09] MEDS: ASPIRIN 325 MG TABLET PO SCH (09:30)
[2019-04-09] MEDS: CALCIUM CARB/VIT D3 500/200 TABLET PO SCH (09:31)
[2019-04-09] MEDS: GLUCOSAMINE/CHOND 500/400MG CAPSULE PO SCH ×2 (09:31→19:52)
[2019-04-09] MEDS: OXYBUTYNIN CHLORIDE 5 MG TABLET PO SCH ×2 (09:31→19:52)
[2019-04-09] MEDS: RIVASTIGMINE 9.5MG PATCH. TD SCH (09:31)
[2019-04-09] MEDS: MULTIVITAMIN with MINERAL TABLET. PO SCH (09:31)
[2019-04-09] MEDS: amLODIPine BESYLATE 5 MG TABLET PO SCH (09:31)
[2019-04-09] MEDS: MEMANTINE 10 MG TABLET. PO SCH ×2 (09:32→19:52)
--- NOTE | 2019-04-09 09:51 | NUR ---
Patient returned to her room about half way through breakfast. Nurse observed patient laying in bed, asleep. Nurse in to wake patient up at 0930 for medications. Upon awakening patient was tearful, she asked what time it was and then stated that she had already eaten 2 meals, then changed it to 7 meals and expressed concern that she will gain weight. Nurse reassured her that she had only eaten half of her breakfast. Patient was compliant with medications and then asked if she could lay back down stating that she is tired. Patient currently asleep in bed. Patients anxiety level is low this morning.
[2019-04-09 15:42] VITALS: BP 116/69
[2019-04-09] MEDS: MELATONIN 3 MG TABLET PO SCH (19:51)
[2019-04-09] MEDS: MIRTAZAPINE 15 MG TABLET PO SCH (19:51)
--- NOTE | 2019-04-09 21:18 | PDOC ---
Exam Note: Sony Note: Please also refer to the separate dictated note~for this date of service dictated separately.~Patient seen individually. Discussed the patient with Nursing staff reviewed the chart.~Reviewed interim history and current functioning. Reviewed vital signs,~Labs/ Radiology~and current medications noted below. Continue current treatment with the changes noted in the dictated addendum note Assessment: Vital Signs/I&O: Vital Signs Date Time Temp Pulse Resp B/P (MAP) Pulse Ox O2 Delivery O2 Flow Rate FiO2 04/09/19 15:42 97.6 75 16 116/69 (85) 98 04/05/19 16:09 Room Air I & O 04/08/19 04/08/19 04/09/19 15:00 23:00 07:00 Intake Total 960 ml 960 ml Balance 960 ml 960 ml Current Medications: I have reviewed the current psychotropics carefully including drug interactions. Risk benefit ratio favors no change other than as noted in my dictated progress note. Diagnosis: Problems: (1) Major depressive disorder, recurrent episode (2) Mild cognitive disorder (3) Dementia, vascular, with depression (4) Bipolar disorder with depression (5) Major neurocognitive disorder HECTOR AL MD Apr 09, 2019 21:18
--- NOTE | 2019-04-09 21:50 | NUR ---
PT IS LOCATED IN PT ROOM AT TIME OF ASSESSMENT AND MEDICATION ADMINISTRATION. PATIENT IS CALM AND SLIGHTLY WITHDRAWN. PT IS COMPLAINING OF NAUSEA AT THIS TIME AND REQUEST A BASIN. PATIENT STATES SHE DOES NOT WANT MEDICATIONS UNTIL 2144. PATIENT IS COMPLIANT WITH MEDIATIONS WHOLE WITH WATER. PATIENT IS SLIGHTLY DEMANDING AND IRRITABLE. PT IS RESTING IN BED AT THIS TIME. WILL CONTINUE TO MONITOR.
--- NOTE | 2019-04-09 23:30 | PN ---
DATE: 04/08/2019 PSYCHIATRIC PROGRESS NOTE This late entry 04/08/2019 covers the elements not covered in my initial note. SUBJECTIVE: I met with the patient in the evening of 04/08/2019. Per ROSE MARY Rowe, the patient slept 4-3/4 hours previous night. She was somewhat anxious at night, but during the day on 04/08/2019, she had a much better day. Nursing staff reported she is calm, compliant, and less anxious. The increased Seroquel seemed to have helped. REVIEW OF SYSTEMS: Ambulation impaired with walker. No CV, , pulmonary, eye system symptoms on review. MENTAL STATUS EXAM: Oriented to herself and situation. Speech is coherent, less pressured. Abstraction fair, computation impaired, language function intact, attention span short. Mood and affect showing improvement. LABORATORY DATA: Reviewed. IMPRESSION: Unchanged from initial note. PLAN: No change from initial note. HECTOR AL MD DR: RENO/angelic JOB#: [id number] / [id number]
[2019-04-10 05:55] VITALS: BP 149/80
[2019-04-10] MEDS: amLODIPine BESYLATE 5 MG TABLET PO SCH (08:16)
[2019-04-10] MEDS: MEMANTINE 10 MG TABLET. PO SCH ×2 (08:16→20:28)
[2019-04-10] MEDS: ATORVASTATIN CALCIUM 20 MG TABLET PO SCH (08:16)
[2019-04-10] MEDS: OXYBUTYNIN CHLORIDE 5 MG TABLET PO SCH ×2 (08:16→20:27)
[2019-04-10] MEDS: MULTIVITAMIN with MINERAL TABLET. PO SCH (08:16)
[2019-04-10] MEDS: ASPIRIN 325 MG TABLET PO SCH (08:17)
[2019-04-10] MEDS: QUEtiapine 25 MG TABLET. PO SCH ×4 (08:17→20:27)
[2019-04-10] MEDS: CHOLECALCIFEROL (VITAMIN D3) 1,000 UNIT TABLET PO SCH (08:17)
[2019-04-10] MEDS: GLUCOSAMINE/CHOND 500/400MG CAPSULE PO SCH ×2 (08:17→20:28)
[2019-04-10] MEDS: CALCIUM CARB/VIT D3 500/200 TABLET PO SCH (08:17)
[2019-04-10] MEDS: DIVALPROEX 125 MG CAP.SPRINK PO SCH ×4 (08:18→20:28)
[2019-04-10] MEDS: RIVASTIGMINE 9.5MG PATCH. TD SCH (08:18)
--- NOTE | 2019-04-10 09:43 | NUR ---
Patient compliant with morning medication. She returned to her room immediately after breakfast and laid down. Patient stated she is very tired but wants staff to be sure to wake her up for supper.
[2019-04-10 15:50] VITALS: BP 97/59
[2019-04-10] MEDS: MELATONIN 3 MG TABLET PO SCH (20:27)
[2019-04-10] MEDS: MIRTAZAPINE 15 MG TABLET PO SCH (20:28)
--- NOTE | 2019-04-10 21:44 | PDOC ---
Exam Note: Sony Note: Please also refer to the separate dictated note~for this date of service dictated separately.~Patient seen individually. Discussed the patient with Nursing staff reviewed the chart.~Reviewed interim history and current functioning. Reviewed vital signs,~Labs/ Radiology~and current medications noted below. Continue current treatment with the changes noted in the dictated addendum note Assessment: Vital Signs/I&O: Vital Signs Date Time Temp Pulse Resp B/P (MAP) Pulse Ox O2 Delivery O2 Flow Rate FiO2 04/10/19 15:50 97.7 70 20 97/59 (72) 97 04/10/19 05:55 Room Air 98.0 I & O 04/09/19 04/09/19 04/10/19 15:00 23:00 07:00 Intake Total 840 ml 240 ml 240 ml Balance 840 ml 240 ml 240 ml Current Medications: I have reviewed the current psychotropics carefully including drug interactions. Risk benefit ratio favors no change other than as noted in my dictated progress note. Diagnosis: Problems: (1) Major depressive disorder, recurrent episode (2) Mild cognitive disorder (3) Dementia, vascular, with depression (4) Bipolar disorder with depression (5) Major neurocognitive disorder HECTOR AL MD Apr 10, 2019 21:44
--- NOTE | 2019-04-10 22:58 | NUR ---
Nsg Note: Patient was in day room at time of medication administration and assessments. Patient was anxious, sad, yet compliant with medications and cares. Patient went off to bed after this interaction. No other notable behaviors at this time.
--- NOTE | 2019-04-10 23:15 | PN ---
DATE: 04/09/2019 PSYCHIATRIC PROGRESS NOTE This late entry 04/09/2019 covers elements not covered in my initial note. SUBJECTIVE: I met with the patient evening of 04/09/2019. Per ROSE MARY Eric, the patient slept 6-1/4 hours previous night. She was in bed after breakfast, somewhat delusional, anxious, stating she had eaten 7 meals. Previous evening, she did much better, less anxious. REVIEW OF SYSTEMS: Ambulation impaired with walker. No CV, , pulmonary, eye system symptoms on review. MENTAL STATUS EXAM: Reasonably oriented. Speech is coherent, at times, somewhat pressured. Abstraction fair, computation impaired, language function intact, attention span short. Mood and affect, lability is improved. LABORATORY DATA: Reviewed. IMPRESSION: Unchanged from initial note. PLAN: No change from initial note. MAN Hector AL MD DR: RENO/angelic JOB#: [id number] / [id number]
[2019-04-11 06:14] VITALS: BP 127/76
[2019-04-11] MEDS: OXYBUTYNIN CHLORIDE 5 MG TABLET PO SCH ×2 (09:14→20:02)
[2019-04-11] MEDS: DIVALPROEX 125 MG CAP.SPRINK PO SCH ×4 (09:14→20:02)
[2019-04-11] MEDS: GLUCOSAMINE/CHOND 500/400MG CAPSULE PO SCH ×2 (09:14→20:03)
[2019-04-11] MEDS: ATORVASTATIN CALCIUM 20 MG TABLET PO SCH (09:14)
[2019-04-11] MEDS: ASPIRIN 325 MG TABLET PO SCH (09:14)
[2019-04-11] MEDS: MULTIVITAMIN with MINERAL TABLET. PO SCH (09:15)
[2019-04-11] MEDS: MEMANTINE 10 MG TABLET. PO SCH ×2 (09:15→20:02)
[2019-04-11] MEDS: QUEtiapine 25 MG TABLET. PO SCH ×4 (09:15→20:01)
[2019-04-11] MEDS: CALCIUM CARB/VIT D3 500/200 TABLET PO SCH (09:15)
[2019-04-11] MEDS: amLODIPine BESYLATE 5 MG TABLET PO SCH (09:15)
[2019-04-11] MEDS: CHOLECALCIFEROL (VITAMIN D3) 1,000 UNIT TABLET PO SCH (09:15)
[2019-04-11] MEDS: RIVASTIGMINE 9.5MG PATCH. TD SCH (09:16)
--- NOTE | 2019-04-11 11:41 | NUR ---
WEEKLY ACTIVITY THERAPY NOTE Date of Admission: 03/20/2018 Date of AT Assessment: 03/23/2019 Goal aimed: to reduce stress and increase engagement Initial Goal: Pt. will participate in at least five Activity Therapy groups per week. Goal changed 04/04: Pt. will participate in at least one Activity Therapy group per day Weekly progress towards goal: did not achieve, no groups on Monday Group participation level: 3 mod, 2 full Weekly highlights: fully engaged in [employer] on Monday Behaviors observed: concerned about falling asleep at times but overall, appeared less anxious this week, responds well to minimal prompting in groups Plan: no change to goal Beneficial adaptations: direct support with reminders/ reassurance, politely change/redirect subject to task at hand during anxious moments, note secured to walker for reminders
--- NOTE | 2019-04-11 12:56 | NUR ---
Patient was in the day room during morning rounding, took medications, allowed for morning assessment. Pt has been calm, cooperative with medications. No agitation noted, will continue to monitor.
[2019-04-11 16:13] VITALS: BP 108/65
[2019-04-11] MEDS: MELATONIN 3 MG TABLET PO SCH (20:02)
[2019-04-11] MEDS: MIRTAZAPINE 15 MG TABLET PO SCH (20:02)
--- NOTE | 2019-04-11 21:22 | PDOC ---
Exam Note: Sony Note: Please also refer to the separate dictated note~for this date of service dictated separately.~Patient seen individually. Discussed the patient with Nursing staff reviewed the chart.~Reviewed interim history and current functioning. Reviewed vital signs,~Labs/ Radiology~and current medications noted below. Continue current treatment with the changes noted in the dictated addendum note Assessment: Vital Signs/I&O: Vital Signs Date Time Temp Pulse Resp B/P (MAP) Pulse Ox O2 Delivery O2 Flow Rate FiO2 04/11/19 16:13 97.8 71 16 108/65 (79) 98 Room Air 04/10/19 05:55 98.0 I & O 04/10/19 04/10/19 04/11/19 14:59 22:59 06:59 Intake Total 840 ml 240 ml 240 ml Balance 840 ml 240 ml 240 ml Current Medications: I have reviewed the current psychotropics carefully including drug interactions. Risk benefit ratio favors no change other than as noted in my dictated progress note. Diagnosis: Problems: (1) Major depressive disorder, recurrent episode (2) Mild cognitive disorder (3) Dementia, vascular, with depression (4) Bipolar disorder with depression (5) Major neurocognitive disorder HECTOR AL MD Apr 11, 2019 21:22
--- NOTE | 2019-04-11 23:12 | PN ---
DATE: 04/11/2019 PSYCHIATRIC PROGRESS NOTE This late entry 04/10/2019 covers elements not covered in my initial note. SUBJECTIVE: I met with the patient evening of 04/10/2019. Per ROSE MARY Eric, the patient slept 6-1/2 hours previous night. She is compliant with her medications, somewhat tired during the day, less anxious. REVIEW OF SYSTEMS: Ambulation impaired with walker. No CV, , pulmonary, eye, ENT system symptoms on review. MENTAL STATUS EXAM: Oriented reasonably. Speech is coherent, abstraction fair, computation impaired, language function intact. Mood: Anxiety is better, less tearful. LABORATORY DATA: Reviewed. No suicidal or homicidal ideation. IMPRESSION: Unchanged from initial note. PLAN: No change from initial note. HECTOR AL MD DR: RENO/angelic JOB#: [id number] / [id number]
--- NOTE | 2019-04-12 00:01 | NUR ---
This evening pt was quiet and cooperative in day room. Meds were taken whole without difficulty. She has had no behaviors tonight.
[2019-04-12 06:19] VITALS: BP 111/70
[2019-04-12] MEDS: CALCIUM CARB/VIT D3 500/200 TABLET PO SCH (08:25)
[2019-04-12] MEDS: ATORVASTATIN CALCIUM 20 MG TABLET PO SCH (08:25)
[2019-04-12] MEDS: QUEtiapine 25 MG TABLET. PO SCH ×4 (08:25→20:25)
[2019-04-12] MEDS: ASPIRIN 325 MG TABLET PO SCH (08:25)
[2019-04-12] MEDS: OXYBUTYNIN CHLORIDE 5 MG TABLET PO SCH ×2 (08:25→20:25)
[2019-04-12] MEDS: GLUCOSAMINE/CHOND 500/400MG CAPSULE PO SCH ×2 (08:25→20:24)
[2019-04-12] MEDS: DIVALPROEX 125 MG CAP.SPRINK PO SCH ×4 (08:25→20:24)
[2019-04-12] MEDS: MULTIVITAMIN with MINERAL TABLET. PO SCH (08:25)
[2019-04-12] MEDS: CHOLECALCIFEROL (VITAMIN D3) 1,000 UNIT TABLET PO SCH (08:26)
[2019-04-12] MEDS: MEMANTINE 10 MG TABLET. PO SCH ×2 (08:26→20:25)
[2019-04-12] MEDS: RIVASTIGMINE 9.5MG PATCH. TD SCH (08:27)
[2019-04-12] MEDS: amLODIPine BESYLATE 5 MG TABLET PO SCH (08:28)
--- NOTE | 2019-04-12 14:01 | NUR ---
Patient is alert and oriented to self. During breakfast, patient came back from bathroom and was tearful saying, "i tried to go to the bathroom and I couldn't but I flushed and I shouldn't have flushed. Now I wont get the signal the next time I have to go." Patient is up walking with walker. Pt has had a few more anxious episodes concerning getting to use the phone and the bathroom. Pt is overall doing better from admission. Tearful/anxious episodes not as severe and not as often. Plan is to continue medication management per Dr Ruelas and encourage participation in group therapy.
[2019-04-12 15:49] VITALS: BP 101/61
--- NOTE | 2019-04-12 18:06 | PN ---
DATE: 04/11/2019 PSYCHIATRIC PROGRESS NOTE This late entry 04/11/2019 covers elements not covered in my initial note. SUBJECTIVE: I met with the patient in the evening. Per ROSE MARY Alexander, the patient slept 6-1/4 hours previous night. She was tearful at night, anxious, got up at night, but day of 04/11/2019 has been much better. Her daughter is closely involved in her care. The patient often forgets that her daughter visits and calls her and then feels she is being abandoned. I addressed this with her. REVIEW OF SYSTEMS: Ambulation impaired with walker. No CV, , pulmonary, eye system symptoms on review. MENTAL STATUS EXAM: Reasonably oriented. Speech is coherent, has some latency. Abstraction fair, computation impaired, language function intact, attention span short. Mood and affect, lability is improved. LABORATORY DATA: Reviewed. 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 Workup in the past has diagnosed her with Alzheimer's dementia according to the daughter. Labs reviewed. PLAN: Continue psychotropics from initial note for now. MAN Hector AL MD DR: RNEO/angelic JOB#: [id number] / [id number]
[2019-04-12] MEDS: MIRTAZAPINE 15 MG TABLET PO SCH (20:25)
[2019-04-12] MEDS: MELATONIN 3 MG TABLET PO SCH (20:25)
--- NOTE | 2019-04-12 21:22 | PDOC ---
Exam Note: Sony Note: Please also refer to the separate dictated note~for this date of service dictated separately.~Patient seen individually. Discussed the patient with Nursing staff reviewed the chart.~Reviewed interim history and current functioning. Reviewed vital signs,~Labs/ Radiology~and current medications noted below. Continue current treatment with the changes noted in the dictated addendum note Assessment: Vital Signs/I&O: Vital Signs Date Time Temp Pulse Resp B/P (MAP) Pulse Ox O2 Delivery O2 Flow Rate FiO2 04/12/19 15:49 97.2 83 20 101/61 (74) 97 04/11/19 16:13 Room Air 04/10/19 05:55 98.0 I & O 04/11/19 04/11/19 04/12/19 15:00 23:00 07:00 Intake Total 1200 ml 720 ml Balance 1200 ml 720 ml Current Medications: I have reviewed the current psychotropics carefully including drug interactions. Risk benefit ratio favors no change other than as noted in my dictated progress note. Diagnosis: Problems: (1) Major depressive disorder, recurrent episode (2) Mild cognitive disorder (3) Dementia, vascular, with depression (4) Bipolar disorder with depression (5) Major neurocognitive disorder HECTOR AL MD Apr 12, 2019 21:22
[2019-04-12] MEDS: traZODone 50 MG TABLET. PO PRN (22:34)
--- NOTE | 2019-04-13 02:03 | NUR ---
Last evening pt was up and active on unit and was anxious and tearful at times. She said she had already had her night medicine and should have waited until 10 pm to take them. No HS meds had yet been given to her, then she wanted to be allowed to sleep through breakfast but awaken for lunch. After finally taking her meds whole she did not want her bed alarm on, worried about her toothpaste, and would not settle to go to sleep. PRN HS trazodone given then after 1/2 hour pt fell to sleep. Since going to sleep she has awaken to use the BR once and then went back to sleep.
[2019-04-13 05:50] VITALS: BP 116/72
[2019-04-13] MEDS: amLODIPine BESYLATE 5 MG TABLET PO SCH (09:00)
[2019-04-13] MEDS: CALCIUM CARB/VIT D3 500/200 TABLET PO SCH (09:46)
[2019-04-13] MEDS: MULTIVITAMIN with MINERAL TABLET. PO SCH (09:46)
[2019-04-13] MEDS: ATORVASTATIN CALCIUM 20 MG TABLET PO SCH (09:46)
[2019-04-13] MEDS: ASPIRIN 325 MG TABLET PO SCH (09:46)
[2019-04-13] MEDS: GLUCOSAMINE/CHOND 500/400MG CAPSULE PO SCH ×2 (09:46→19:54)
[2019-04-13] MEDS: OXYBUTYNIN CHLORIDE 5 MG TABLET PO SCH ×2 (09:46→19:54)
[2019-04-13] MEDS: QUEtiapine 25 MG TABLET. PO SCH ×4 (09:46→19:55)
[2019-04-13] MEDS: DIVALPROEX 125 MG CAP.SPRINK PO SCH ×4 (09:47→19:54)
[2019-04-13] MEDS: CHOLECALCIFEROL (VITAMIN D3) 1,000 UNIT TABLET PO SCH (09:47)
[2019-04-13] MEDS: MEMANTINE 10 MG TABLET. PO SCH ×2 (09:47→19:54)
[2019-04-13] MEDS: RIVASTIGMINE 9.5MG PATCH. TD SCH (09:53)
--- NOTE | 2019-04-13 10:41 | NUR ---
Patient refused breakfast this morning, states she has already had 2 meals today and is not hungry. Did come out to the day room around 9:30. Took meds compliantly and was compliant with cares this morning. Pt is anxious. Started voicing that she is very tired and wants to go to bed. Pt reassured that we will wake her for lunch and dinner. Afraid she will sleep all day. Plan is to continue medication management and encourage participation in groups. MARICEL.
[2019-04-13 16:03] VITALS: BP 99/60
[2019-04-13] MEDS: MIRTAZAPINE 15 MG TABLET PO SCH (19:54)
[2019-04-13] MEDS: MELATONIN 3 MG TABLET PO SCH (19:54)
--- NOTE | 2019-04-13 22:03 | PDOC ---
Exam Note: Sony Note: Please also refer to the separate dictated note~for this date of service dictated separately.~Patient seen individually. Discussed the patient with Nursing staff reviewed the chart.~Reviewed interim history and current functioning. Reviewed vital signs,~Labs/ Radiology~and current medications noted below. Continue current treatment with the changes noted in the dictated addendum note Assessment: Vital Signs/I&O: Vital Signs Date Time Temp Pulse Resp B/P (MAP) Pulse Ox O2 Delivery O2 Flow Rate FiO2 04/13/19 16:03 97.8 82 18 99/60 (73) 97 04/11/19 16:13 Room Air 04/10/19 05:55 98.0 I & O 0 04/12/19 04/12/19 04/13/19 14:59 22:59 06:59 Intake Total 600 ml 240 ml 120 ml Balance 600 ml 240 ml 120 ml Current Medications: I have reviewed the current psychotropics carefully including drug interactions. Risk benefit ratio favors no change other than as noted in my dictated progress note. Diagnosis: Problems: (1) Major depressive disorder, recurrent episode (2) Mild cognitive disorder (3) Dementia, vascular, with depression (4) Bipolar disorder with depression (5) Major neurocognitive disorder HECTOR AL MD Apr 13, 2019 22:02
[2019-04-14 06:29] VITALS: BP 133/75
[2019-04-14] MEDS: OXYBUTYNIN CHLORIDE 5 MG TABLET PO SCH ×2 (08:13→20:24)
[2019-04-14] MEDS: QUEtiapine 25 MG TABLET. PO SCH ×3 (08:13→20:23)
[2019-04-14] MEDS: MEMANTINE 10 MG TABLET. PO SCH ×2 (08:13→20:24)
[2019-04-14] MEDS: ATORVASTATIN CALCIUM 20 MG TABLET PO SCH (08:13)
[2019-04-14] MEDS: RIVASTIGMINE 9.5MG PATCH. TD SCH (08:14)
[2019-04-14] MEDS: GLUCOSAMINE/CHOND 500/400MG CAPSULE PO SCH ×2 (08:14→20:24)
[2019-04-14] MEDS: CHOLECALCIFEROL (VITAMIN D3) 1,000 UNIT TABLET PO SCH (08:14)
[2019-04-14] MEDS: MULTIVITAMIN with MINERAL TABLET. PO SCH (08:14)
[2019-04-14] MEDS: amLODIPine BESYLATE 5 MG TABLET PO SCH (08:14)
[2019-04-14] MEDS: ASPIRIN 325 MG TABLET PO SCH (08:14)
[2019-04-14] MEDS: DIVALPROEX 125 MG CAP.SPRINK PO SCH ×4 (08:14→20:25)
[2019-04-14] MEDS: CALCIUM CARB/VIT D3 500/200 TABLET PO SCH (08:14)
--- NOTE | 2019-04-14 14:18 | NUR ---
Pt cooperative with cares and medication this am. Pt is very anxious at times so far this shift. She asks if staff will come and get her for dinner; pt is easily reassured and redirected. Pt was compliant with medications; she questions her Seroquel at lunch, stating that it makes her dizzy. Pt ended up taking the medication and she has not complained of any dizziness. Pt has been ambulating independently with her walker.
[2019-04-14 15:59] VITALS: BP 101/62
[2019-04-14] MEDS ORDERED: QUEtiapine 25 MG TABLET. PO SCH (17:00)
[2019-04-14] MEDS: MELATONIN 3 MG TABLET PO SCH (20:24)
[2019-04-14] MEDS: MIRTAZAPINE 15 MG TABLET PO SCH (20:24)
--- NOTE | 2019-04-14 21:17 | PN ---
DATE: 04/12/2019 PSYCHIATRIC PROGRESS NOTE This late entry 04/12/2019 covers the elements not covered in my initial note. SUBJECTIVE: I met with the patient in the evening of 04/12/2019 and staffed at a treatment team meeting with the entire team earlier in the day. The patient's daughter, Eliseo, attended the treatment team meeting. Sleeping average 6-1/2 hours, slept 4-1/4 hours previous night. Appetite is 85%. She is less anxious, but does worsen during the evening. REVIEW OF SYSTEMS: Ambulation impaired with walker. No CV, , pulmonary, eye system symptoms on review. Anxious, in the evening when I met with her. MENTAL STATUS EXAM: Oriented to herself and situation. Speech is coherent, a little pressured at times. Abstraction fair, computation impaired, language function intact, attention span short. Mood and affect remains anxious, labile, but improved. LABORATORY DATA: Reviewed. IMPRESSION: Unchanged from initial note. PLAN: No change from initial note. HECTOR AL MD DR: RENO/angelic JOB#: [id number] / [id number]
--- NOTE | 2019-04-14 21:20 | PN ---
DATE: 04/13/2019 PSYCHIATRIC PROGRESS NOTE This late entry 04/13/2019 covers the elements not covered in my initial note. SUBJECTIVE: I met with the patient in the evening. Per Thierry RN, the patient slept 6 hours previous night. Overall, she is doing better, but still gets anxious in the evening. REVIEW OF SYSTEMS: Ambulation impaired with walker. No CV, , pulmonary, eye system symptoms on review. MENTAL STATUS EXAM: Reasonably oriented. Speech coherent, a little pressured at times. Abstraction fair, computation impaired, language function intact, attention span short. Mood and affect still somewhat anxious, labile, but improved. LABORATORY DATA: Reviewed. IMPRESSION: Unchanged from initial note. PLAN: Valproic acid level therapeutic at 69. Increase 0900 hours Seroquel from 25 mg to 37.5 mg, maintain 25 mg at 1700 hours and 12.5 mg at 1300 hours and 2100 hours. Continue rest of psychotropics. Adjust further as clinically indicated. HECTOR AL MD DR: RENO/angelic JOB#: [id number] / [id number]
--- NOTE | 2019-04-14 21:41 | PDOC ---
Exam Note: Sony Note: Please also refer to the separate dictated note~for this date of service dictated separately.~Patient seen individually. Discussed the patient with Nursing staff reviewed the chart.~Reviewed interim history and current functioning. Reviewed vital signs,~Labs/ Radiology~and current medications noted below. Continue current treatment with the changes noted in the dictated addendum note Assessment: Vital Signs/I&O: Vital Signs Date Time Temp Pulse Resp B/P (MAP) Pulse Ox O2 Delivery O2 Flow Rate FiO2 04/14/19 15:59 97.2 100 18 101/62 (75) 96 04/11/19 16:13 Room Air 04/10/19 05:55 98.0 I & O 04/13/19 04/13/19 04/14/19 15:00 23:00 07:00 Intake Total 480 ml 600 ml Balance 480 ml 600 ml Current Medications: Meds: Current Medications Medications (Trade) Dose Ordered Sig/Mickey Route PRN Reason Start Time Stop Time Status Last Admin Dose Admin Quetiapine Fumarate (SEROquel) 25 mg 1700 PO 04/14/19 17:00 04/14/19 17:15 Quetiapine Fumarate (SEROquel) 37.5 mg DAILY PO 04/14/19 09:00 04/14/19 08:13 I have reviewed the current psychotropics carefully including drug interactions. Risk benefit ratio favors no change other than as noted in my dictated progress note. Diagnosis: Problems: (1) Major depressive disorder, recurrent episode (2) Mild cognitive disorder (3) Dementia, vascular, with depression (4) Bipolar disorder with depression (5) Major neurocognitive disorder HECOTR AL MD Apr 14, 2019 21:41
--- NOTE | 2019-04-15 00:13 | NUR ---
Nursing Note The patient was located in the day room for her assessment and medication pass. The patient was anxious during her assessment and was preoccupied about sleeping during the day. The patient did take her medication whole. The patient is currently sleeping in her room.
[2019-04-15] MEDS: traZODone 50 MG TABLET. PO PRN ×3 (01:27→23:46)
--- NOTE | 2019-04-15 01:33 | NUR ---
Nursing Note The patient was found awake and anxious in her bed@ 0120. The patient agreed to take PRN Trazodone. The patient received PRN trazodone@0128 per PRN order.
[2019-04-15] MEDS: ACETAMINOPHEN 325 MG TABLET PO PRN (02:06)
[2019-04-15] MEDS: ONDANSETRON ODT 4 MG TAB.RAPDIS PO PRN (02:11)
[2019-04-15 05:44] VITALS: BP 164/82
[2019-04-15] MEDS: ASPIRIN 325 MG TABLET PO SCH (08:42)
[2019-04-15] MEDS: DIVALPROEX 125 MG CAP.SPRINK PO SCH ×4 (08:43→20:20)
[2019-04-15] MEDS: CALCIUM CARB/VIT D3 500/200 TABLET PO SCH (08:43)
[2019-04-15] MEDS: QUEtiapine 25 MG TABLET. PO SCH ×4 (08:43→20:19)
[2019-04-15] MEDS: GLUCOSAMINE/CHOND 500/400MG CAPSULE PO SCH ×2 (08:43→20:20)
[2019-04-15] MEDS: MEMANTINE 10 MG TABLET. PO SCH ×2 (08:44→20:20)
[2019-04-15] MEDS: amLODIPine BESYLATE 5 MG TABLET PO SCH (08:44)
[2019-04-15] MEDS: OXYBUTYNIN CHLORIDE 5 MG TABLET PO SCH ×2 (08:44→20:20)
[2019-04-15] MEDS: MULTIVITAMIN with MINERAL TABLET. PO SCH (08:44)
[2019-04-15] MEDS: RIVASTIGMINE 9.5MG PATCH. TD SCH (08:44)
[2019-04-15] MEDS: CHOLECALCIFEROL (VITAMIN D3) 1,000 UNIT TABLET PO SCH (08:44)
[2019-04-15] MEDS: ATORVASTATIN CALCIUM 20 MG TABLET PO SCH (08:44)
--- NOTE | 2019-04-15 14:57 | NUR ---
NURSING NOTE: PATIENT IN DINING ROOM AT TIME OF AM ASSESSMENT. PATIENT ALERT AND ORIENTED TO SELF AND PLACE ONLY, SPEECH CLEAR, ABLE TO MAKE NEEDS KNOWN. LCTA. PATIENT ON ROOM AIR. NO COUGH NOTED. BS ACTIVE X4 QUADRANTS. PATIENT SELF TOILETS. MEDICATIONS GIVEN WHOLE, TOLERATED WELL. PATIENT HAS BEEN COOPERATIVE WITH STAFF BUT VERY ANXIOUS. STATES SHE TOOK HER SLEEPING PILL THIS AM AND NOW SHE IS SO TIRED AND CANNOT STAY AWAKE. PATIENT EDUCATED THAT SHE DID NOT TAKE SLEEPING MEDICATION THIS AM BUT CONTINUES TO BE ANXIOUS AND CRIES ABOUT IT. MEDICATION COMPLIANT WITH ENCOURAGEMENT. NO CONCERNS NOTED, WILL CONTINUE TO MONITOR.
[2019-04-15 16:01] VITALS: BP 105/68
--- NOTE | 2019-04-15 17:04 | NUR ---
NURSING NOTES: THIS NURSE TALKED TO DR. AL TODAY ABOUT PATIENT BEHAVIORS AND SLEEPING ABILITY. NEW ORDER RECEIVED TO INCREASE 1700 SEROQUEL DOSE TO 37.5MG. NO FURTHER CONCERNS AT THIS TIME. WILL CONTINUE TO MONITOR.
--- NOTE | 2019-04-15 17:10 | NUR ---
SELINA met with pt dtr to discuss pt progression. More than likely, pt would look at discharging some time next week as pt has not had enough good consecutive days in a row. Pt dtr agreed as she said Monday she looked great but today she was way off and had a lot of somatic complaints. SELINA will check with the AL tomorrow, as she and Marika have been playing phone tag.
[2019-04-15] MEDS: MELATONIN 3 MG TABLET PO SCH (20:20)
[2019-04-15] MEDS: MIRTAZAPINE 15 MG TABLET PO SCH (20:20)
--- NOTE | 2019-04-15 21:23 | PDOC ---
Exam Note: Sony Note: Please also refer to the separate dictated note~for this date of service dictated separately.~Patient seen individually. Discussed the patient with Nursing staff reviewed the chart.~Reviewed interim history and current functioning. Reviewed vital signs,~Labs/ Radiology~and current medications noted below. Continue current treatment with the changes noted in the dictated addendum note Assessment: Vital Signs/I&O: Vital Signs Date Time Temp Pulse Resp B/P (MAP) Pulse Ox O2 Delivery O2 Flow Rate FiO2 04/15/19 16:01 97.6 73 18 105/68 (80) 98 04/11/19 16:13 Room Air 04/10/19 05:55 98.0 I & O 04/14/19 04/14/19 04/15/19 15:00 23:00 07:00 Intake Total 480 ml 480 ml 240 ml Balance 480 ml 480 ml 240 ml Current Medications: Meds: Current Medications Medications (Trade) Dose Ordered Sig/Mickey Route PRN Reason Start Time Stop Time Status Last Admin Dose Admin Quetiapine Fumarate (SEROquel) 12.5 mg DAILY@2100 PO 04/15/19 21:00 04/15/19 20:19 Quetiapine Fumarate (SEROquel) 25 mg DAILY@1300 PO 04/15/19 13:00 04/15/19 13:14 Quetiapine Fumarate (SEROquel) 37.5 mg 1700 PO 04/15/19 17:15 04/15/19 17:27 I have reviewed the current psychotropics carefully including drug interactions. Risk benefit ratio favors no change other than as noted in my dictated progress note. Diagnosis: Problems: (1) Major depressive disorder, recurrent episode (2) Mild cognitive disorder (3) Dementia, vascular, with depression (4) Bipolar disorder with depression (5) Major neurocognitive disorder HECTOR AL MD Apr 15, 2019 21:23
--- NOTE | 2019-04-15 23:23 | NUR ---
Nursing Note The patient was located in the day room for her assessment and medication pass. The patient was less anxious this shift and was compliant with her medications. the patient took her medication whole. The patient received PRN Trazodone with her HS medication. The patient requested to have her medication lists printed out for her. The patient is currently sleeping in her room.
--- NOTE | 2019-04-15 23:53 | PN ---
DATE: 04/14/2019 This late entry 04/14/2019 covers elements not covered in my initial note. SUBJECTIVE: Per Jc RN, the patient slept 7 hours previous night. She gets more anxious in the evening, little better in the morning, somewhat sedated, believes she took a sleeping pill in the morning. Each increment in Seroquel seems to help her anxiety and then it seems to reverse course after that. REVIEW OF SYSTEMS: Ambulation impaired, with walker. No CV, , pulmonary, eye system symptoms on review. MENTAL STATUS EXAM: Reasonably oriented. Speech is coherent, abstraction fair, computation impaired, language function intact, attention span short. Mood and affect remain somewhat anxious, labile, but improved. LABORATORY DATA: Reviewed. IMPRESSION: Unchanged from initial note. PLAN: Increase the Seroquel 12.5 mg at 1300 to 25 mg at that dosage. Continue rest of the psychotropics unchanged. May need to increase Seroquel further if mood lability resurfaces. HECTOR AL MD DR: RENO/angelic JOB#: [id number] / [id number]
[2019-04-16 05:53] VITALS: BP 122/73
[2019-04-16] MEDS: ATORVASTATIN CALCIUM 20 MG TABLET PO SCH (09:28)
[2019-04-16] MEDS: ASPIRIN 325 MG TABLET PO SCH (09:28)
[2019-04-16] MEDS: RIVASTIGMINE 9.5MG PATCH. TD SCH (09:29)
[2019-04-16] MEDS: QUEtiapine 25 MG TABLET. PO SCH ×4 (09:29→20:14)
[2019-04-16] MEDS: CHOLECALCIFEROL (VITAMIN D3) 1,000 UNIT TABLET PO SCH (09:29)
[2019-04-16] MEDS: amLODIPine BESYLATE 5 MG TABLET PO SCH (09:29)
[2019-04-16] MEDS: MULTIVITAMIN with MINERAL TABLET. PO SCH (09:30)
[2019-04-16] MEDS: CALCIUM CARB/VIT D3 500/200 TABLET PO SCH (09:30)
[2019-04-16] MEDS: MEMANTINE 10 MG TABLET. PO SCH ×2 (09:30→20:15)
[2019-04-16] MEDS: OXYBUTYNIN CHLORIDE 5 MG TABLET PO SCH ×2 (09:30→20:15)
[2019-04-16] MEDS: DIVALPROEX 125 MG CAP.SPRINK PO SCH ×4 (09:30→20:14)
[2019-04-16] MEDS: GLUCOSAMINE/CHOND 500/400MG CAPSULE PO SCH ×2 (09:30→20:14)
--- NOTE | 2019-04-16 11:56 | NUR ---
Patient anxious and preoccupied with roommates commode. She has gone in and out of room multiple times in 15 minutes to sit on commode. Patient is compliant with medications with water but needs to be reminded to not put them all in her mouth at one time.
--- NOTE | 2019-04-16 12:59 | NUR ---
SELINA contacted Marika at [place] [address] to give her an update on pt and her inconsistency with her behaviors. SELINA informed Marika that pt would not be appropriate for [facility] and would definitely need a higher level of care. As it stands, we will have pt discharge towards the beginning of the week. Marika requested that SELINA contact Eve who is over that area of [place]. SELINA called and left Eve a message and will plan to fax over a referral.
[2019-04-16 16:25] VITALS: BP 132/71
--- NOTE | 2019-04-16 19:29 | NUR ---
Patient to be slowly tapered off of Seroquel per Dr. Ruelas instructions. Taper should be finished by april 25. Instructions in [place].
[2019-04-16] MEDS: traZODone 50 MG TABLET. PO PRN ×2 (20:14→23:08)
[2019-04-16] MEDS: MELATONIN 3 MG TABLET PO SCH (20:15)
[2019-04-16] MEDS: MIRTAZAPINE 15 MG TABLET PO SCH (20:15)
--- NOTE | 2019-04-16 21:19 | PDOC ---
Exam Note: Sony Note: Please also refer to the separate dictated note~for this date of service dictated separately.~Patient seen individually. Discussed the patient with Nursing staff reviewed the chart.~Reviewed interim history and current functioning. Reviewed vital signs,~Labs/ Radiology~and current medications noted below. Continue current treatment with the changes noted in the dictated addendum note Assessment: Vital Signs/I&O: Vital Signs Date Time Temp Pulse Resp B/P (MAP) Pulse Ox O2 Delivery O2 Flow Rate FiO2 04/16/19 16:25 98.1 84 18 132/71 (91) 99 04/11/19 16:13 Room Air I & O 04/15/19 04/15/19 04/16/19 15:00 23:00 07:00 Intake Total 1080 ml 240 ml 120 ml Balance 1080 ml 240 ml 120 ml Current Medications: I have reviewed the current psychotropics carefully including drug interactions. Risk benefit ratio favors no change other than as noted in my dictated progress note. Diagnosis: Problems: (1) Major depressive disorder, recurrent episode (2) Mild cognitive disorder (3) Dementia, vascular, with depression (4) Bipolar disorder with depression (5) Major neurocognitive disorder HECTOR AL MD Apr 16, 2019 21:19
--- NOTE | 2019-04-16 21:38 | PN ---
DATE: 04/15/2019 PSYCHIATRIC PROGRESS NOTE This late entry 04/15/2019 covers elements not covered in my initial note. SUBJECTIVE: I met with the patient evening of 04/15/2019. Per ROSE MARY Hirsch, the patient has been somewhat anxious, restless, complains of being sedated, feels she has taken a sleeping pill in the morning, tearful in the morning. She took a nap, then did better, slept 5-1/2 hours previous night. REVIEW OF SYSTEMS: Ambulation impaired with walker. No CV, , pulmonary, eye, ENT system symptoms on review, does complain of tiredness. MENTAL STATUS EXAM: Reasonably oriented to herself and situation. Speech has some latency, coherent. Abstraction fair, computation impaired, language function intact, attention span short. Mood and affect remains somewhat anxious, labile. LABORATORY DATA: Reviewed. IMPRESSION: Unchanged from initial note. PLAN: Increase the 1700 hours Seroquel from 25 mg to 37.5 mg. Continue rest unchanged. Valproic acid level therapeutic at 69. MAN Hector AL MD DR: RENO/angelic JOB#: [id number] / [id number]
--- NOTE | 2019-04-16 23:45 | NUR ---
Nursing Note The patient was located in the day room for her assessment and medication pass. The patient was anxious this shift and was focused on her toilet. The patient had a delusion that the toilet was flushing every time she sat down. The patient received PRN Trazodone with her HS medication As well as a repeat Trazodone shortly after. The patient is currently sleeping in her room.
[2019-04-17 05:43] VITALS: BP 100/66
--- NOTE | 2019-04-17 06:52 | RAD ---
Three-view left shoulder dated 04/17/2019. No comparison available. CLINICAL INDICATION: Pain after fall. FINDINGS: 3 views left shoulder show normal bony alignment. No displaced fracture. Proximal humerus is intact. There is mild degenerative change of the glenohumeral joint. There is superior subluxation of the distal clavicle relative to the acromium with probable inferior displacement of the clavicular head relative to the sternum. No fracture is identified. AC distance estimated at 2.3 cm. IMPRESSION: 1. Abnormal orientation of the left clavicle with AC separation and sternoclavicular separation. No associated fracture. Correlate clinically. If indicated, CT may provide additional information. 2. Otherwise no acute findings. Electronically signed by: Fran Hair MD (04/17/2019 6:49 AM) [id number]
[2019-04-17] MEDS ORDERED: buPROPion XL 150 MG TAB.ER.24H PO SCH (09:00)
[2019-04-17 09:45] LABS: CLARITY,URINE CLOUDY; COLOR,URINE YELLOW
[2019-04-17 09:46] LABS: BACTERIA,URINE FEW /HPF (0-FEW); BILIRUBIN,URINE NEG (NEG); GLUCOSE,URINE NEG (NEG); NITRITE,URINE NEG (NEG); SQUAMOUS EPITHELIAL CELL,UR MOD /LPF; UROBILINOGEN,URINE 0.2 mg/dL (0.2 mg/dL); WBC,URINE 20-40 /HPF (0-4)
[2019-04-17] MEDS: OXYBUTYNIN CHLORIDE 5 MG TABLET PO SCH ×2 (09:53→20:17)
[2019-04-17] MEDS: QUEtiapine 25 MG TABLET. PO SCH ×4 (09:53→20:07)
[2019-04-17] MEDS: GLUCOSAMINE/CHOND 500/400MG CAPSULE PO SCH ×2 (09:53→20:05)
[2019-04-17] MEDS: LURASIDONE 40 MG TABLET. PO SCH (09:54)
[2019-04-17] MEDS: DIVALPROEX 125 MG CAP.SPRINK PO SCH ×4 (09:54→20:05)
[2019-04-17] MEDS: MULTIVITAMIN with MINERAL TABLET. PO SCH (09:54)
[2019-04-17] MEDS: CHOLECALCIFEROL (VITAMIN D3) 1,000 UNIT TABLET PO SCH (09:54)
[2019-04-17] MEDS: ATORVASTATIN CALCIUM 20 MG TABLET PO SCH (09:55)
[2019-04-17] MEDS: MEMANTINE 10 MG TABLET. PO SCH ×2 (09:55→20:07)
[2019-04-17] MEDS: amLODIPine BESYLATE 5 MG TABLET PO SCH (09:56)
[2019-04-17] MEDS: RIVASTIGMINE 9.5MG PATCH. TD SCH (09:56)
[2019-04-17] MEDS: ASPIRIN 325 MG TABLET PO SCH (09:56)
[2019-04-17] MEDS: CALCIUM CARB/VIT D3 500/200 TABLET PO SCH (09:56)
--- NOTE | 2019-04-17 11:19 | NUR ---
Patient continues to state that she is tired. Patient resistant with medications this morning stating that "i am so tired, i know i already took them". Nurse told patient that Dr. Ruelas had adjusted some of her medications (seroquel) to decrease her tiredness. Patient has been awake and in the day room most of the morning. Patient continues to obsess about the bathroom and the way the toilet flushes. A urine sample was obtained this morning top check for UTI, the sample went to culture. Addendum: 04/17/19 at 1133 by ELIZABETH HICKMAN RN Patient eventually compliant with medications taken whole, a few at a time with water.
[2019-04-17 16:12] VITALS: BP 129/72
--- NOTE | 2019-04-17 18:49 | RAD ---
Bilateral hips 2 views with one view pelvis. HISTORY: Left hip pain, pelvic pain, fall Pelvis Single view was taken of the pelvis. There is degenerative disc disease and hypertrophic facet arthritis in the lower lumbar spine. There are old right pubic rami fractures. As a possible nondisplaced inferior pubic ramus fracture on the left. Right hip AP and lateral views were taken of the right hip. There is slight spurring on the femoral head from mild arthritis. There is no right hip fracture noted. Left hip AP and lateral views were taken the left hip. There is mild arthritis with slight spurring on the femoral head. There is a possible nondisplaced inferior pubic ramus fracture on the hip film. No other hip fracture is noted. IMPRESSION: 1. Old right pubic rami fractures. 2. Possible nondisplaced inferior pubic ramus fracture on the left. 3. 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 Electronically signed by: Estiven Baeza MD (04/17/2019 6:46 PM) [id number]
--- NOTE | 2019-04-17 18:53 | RAD ---
Examination: 2 views of the left forearm COMPARISON: None available HISTORY: Left arm pain, fall COMPARISON: None available Findings/ impression: There is faint lucency identified in the olecranon processes best seen on the lateral view could be nondisplaced fracture however evaluation is limited due to overlapping radial head. Correlate for point tenderness. Recommend repeat radiograph different angle. Electronically signed by: Vivek Kimball MD (04/17/2019 6:50 PM) [id number]
[2019-04-17] MEDS: MELATONIN 3 MG TABLET PO SCH (20:05)
[2019-04-17] MEDS: MIRTAZAPINE 15 MG TABLET PO SCH (20:05)
[2019-04-17] MEDS: ACETAMINOPHEN 325 MG TABLET PO PRN (20:11)
--- NOTE | 2019-04-17 21:19 | PDOC ---
Exam Note: Sony Note: Please also refer to the separate dictated note~for this date of service dictated separately.~Patient seen individually. Discussed the patient with Nursing staff reviewed the chart.~Reviewed interim history and current functioning. Reviewed vital signs,~Labs/ Radiology~and current medications noted below. Continue current treatment with the changes noted in the dictated addendum note Assessment: Vital Signs/I&O: Vital Signs Date Time Temp Pulse Resp B/P (MAP) Pulse Ox O2 Delivery O2 Flow Rate FiO2 04/17/19 16:12 97.6 79 16 129/72 (91) 96 04/11/19 16:13 Room Air I & O 04/16/19 04/16/19 04/17/19 15:00 23:00 07:00 Intake Total 720 ml 480 ml 240 ml Balance 720 ml 480 ml 240 ml Labs: Laboratory Tests Test 04/17/19 08:42 Urine Collection Type Unknown Urine Color Yellow Urine Clarity Cloudy Urine pH 7.0 Urine Specific [place] 1.015 Urine Protein Neg (NEG-TRACE) Urine Glucose (UA) Neg mg/dL (NEG) Urine Ketones (Stick) Neg mg/dL (NEG) Urine Blood Trace (NEG) Urine Nitrite Neg (NEG) Urine Bilirubin Neg (NEG) Urine Urobilinogen Dipstick 0.2 mg/dL (0.2 mg/dL) Urine Leukocyte Esterase Large (NEG) Urine RBC 3-5 /HPF (0-2) Urine WBC 20-40 /HPF (0-4) Urine Squamous Epithelial Cells Mod /LPF Urine Bacteria Few /HPF (0-FEW) Urine Mucus Slight /LPF Current Medications: Meds: Current Medications Medications (Trade) Dose Ordered Sig/Mickey Route PRN Reason Start Time Stop Time Status Last Admin Dose Admin Lurasidone HCl (Latuda) 20 mg DAILYWBKFT PO 04/17/19 08:00 04/19/19 21:00 04/17/19 09:54 Quetiapine Fumarate (SEROquel) 25 mg DAILY PO 04/17/19 09:00 04/19/19 21:00 04/17/19 09:53 Quetiapine Fumarate (SEROquel) 25 mg 1700 PO 04/17/19 17:00 04/22/19 23:00 04/17/19 17:30 I have reviewed the current psychotropics carefully including drug interactions. Risk benefit ratio favors no change other than as noted in my dictated progress note. Diagnosis: Problems: (1) Major depressive disorder, recurrent episode (2) Mild cognitive disorder (3) Dementia, vascular, with depression (4) Bipolar disorder with depression (5) Major neurocognitive disorder HECTOR AL MD Apr 17, 2019 21:19
--- NOTE | 2019-04-17 21:47 | PN ---
DATE: 04/16/2019 PSYCHIATRIC PROGRESS NOTE This late entry 04/16/2019 covers the elements not covered in my initial note. SUBJECTIVE: I met with the patient in the evening of 04/16/2019. Per ROSE MARY Eric, the patient slept 6 hours previous night. She has been quite obsessed about using the bathroom, ruminating about this. Complains of being tired during the day with Seroquel and still very anxious. REVIEW OF SYSTEMS: Ambulation impaired with walker. No CV, , pulmonary, eye system symptoms on review. She has vague somatic symptoms. MENTAL STATUS EXAM: Oriented to herself and situation. Speech has some latency, often responses monosyllabic, coherent. Abstraction fair, computation impaired, language function intact, attention span short. Mood and affect remains anxious, labile at times. At times withdrawn, little more animated during the day and worse in the evening. LABORATORY DATA: Reviewed. IMPRESSION: Bipolar disorder, mixed; mild cognitive impairment; anxiety disorder, unspecified. PLAN: I reviewed the patient's psychotropics at length. She is quite convinced the Seroquel sedates. She is unwilling to take it, resistive, and understandably so. We will taper and stop the Seroquel, start Latuda 20 mg a day, increasing gradually to 40 mg a day, perhaps later 60 mg a day as an atypical antipsychotic mood stabilizer given her depression and anxiety symptoms. Continue rest of the psychotropics unchanged including Exelon patch, Namenda, Luvox, melatonin, Zyprexa as p.r.n., Remeron, and the Depakote Sprinkle 125 mg 4 times a day, level therapeutic at 69. MAN Hector AL MD DR: RENO/angelic JOB#: [id number] / [id number]
[2019-04-18] MEDS: traZODone 50 MG TABLET. PO PRN ×2 (00:24→20:01)
[2019-04-18] MEDS: traMADol 50 MG TABLET PO PRN ×2 (00:24→08:29)
--- NOTE | 2019-04-18 00:40 | NUR ---
Last evening pt was anxious about lots of things and complaining of pain. We called her daughter Eliseo to clarify that pt has had Tramadol in the past with no ill effects. By this time she had PRN tylenol and gong to sleep. Now she is awake co pain but refusing med saying she will sleep all day tomorrow and starve to . PRN Tramadol and Trazodone were crushed and gently syringed and she tolerated it well. At approx [address] Donovan was called to inform of possible non displaced pubis rami FX. Tramadol order received.
[2019-04-18 05:40] VITALS: BP 159/86
--- NOTE | 2019-04-18 06:46 | NUR ---
Pt in day room and co pain, when pain med presented she refuses it saying if she takes it now then she cannot have it later.
[2019-04-18] MEDS: CHOLECALCIFEROL (VITAMIN D3) 1,000 UNIT TABLET PO SCH (08:28)
[2019-04-18] MEDS: RIVASTIGMINE 9.5MG PATCH. TD SCH (08:28)
[2019-04-18] MEDS: GLUCOSAMINE/CHOND 500/400MG CAPSULE PO SCH ×2 (08:29→20:01)
[2019-04-18] MEDS: MEMANTINE 10 MG TABLET. PO SCH ×2 (08:29→20:00)
[2019-04-18] MEDS: QUEtiapine 25 MG TABLET. PO SCH ×4 (08:29→20:00)
[2019-04-18] MEDS: CALCIUM CARB/VIT D3 500/200 TABLET PO SCH (08:29)
[2019-04-18] MEDS: amLODIPine BESYLATE 5 MG TABLET PO SCH (08:29)
[2019-04-18] MEDS: ASPIRIN 325 MG TABLET PO SCH (08:29)
[2019-04-18] MEDS: MULTIVITAMIN with MINERAL TABLET. PO SCH (08:30)
[2019-04-18] MEDS: DIVALPROEX 125 MG CAP.SPRINK PO SCH ×4 (08:30→20:00)
[2019-04-18] MEDS: OXYBUTYNIN CHLORIDE 5 MG TABLET PO SCH ×2 (08:30→20:00)
[2019-04-18] MEDS: LURASIDONE 40 MG TABLET. PO SCH (08:30)
[2019-04-18] MEDS: ATORVASTATIN CALCIUM 20 MG TABLET PO SCH (08:35)
--- NOTE | 2019-04-18 09:15 | NUR ---
SELINA met with Gosia with [facility] to have her complete an assessment on pt. Gosia had looked over the referral and felt that pt would be better suited on the Memory Care Unit. Gosia met with pt, who was tearful but happy that someone from [facility] came to see her. SELINA explained to Gosia that pt fell and has a non-displaced pelvic fracture and they will look into adding rehab to pt regime for discharge. SELINA will contact Gosia with an update on discharge planning later this afternoon, if not tomorrow. An updated medication list and physician notes were printed for Gosia at the time of discharge.
--- NOTE | 2019-04-18 10:47 | NUR ---
WEEKLY ACTIVITY THERAPY NOTE Date of Admission: 03/20/2018 Date of AT Assessment: 03/23/2019 Goal aimed: to reduce stress and increase engagement Initial Goal: Pt. will participate in at least five Activity Therapy groups per week. Goal changed 04/04: Pt. will participate in at least one Activity Therapy group per day Weekly progress towards goal: did not achieve, no group on Monday or Monday Group participation level: 2 mod, 2 full Weekly highlights: balloon bop on Monday Behaviors observed: continued moments of anxiety: fears she took wrong meds, need to use restroom every few minutes, need to call daughter, etc. but these periods are more spread out, smiling during groups when redirected Plan: no change to goal Beneficial adaptations: direct support with reminders/ reassurance, politely change/redirect subject to task at hand during anxious moments, note secured to walker for reminders
--- NOTE | 2019-04-18 15:12 | NUR ---
Patient resistive with morning medications stating that they "make her dizzy" and "make her nauseated". Patient eventually took the medications whole, a few at a time with water. After taking the medications she very dramatically asked for a "basin because she was going to vomit". She carried the basin around with her but did not end up vomiting. A facility came to screen her. After they left she became agitated and very tearful and was saying "please have them come back I forgot to tell them some things". At lunch med pass she told the nurse that the medications would either make her sleep or vomit. Patient reassured that they would not. She reluctantly took them. Patient made a phone call to her daughter after lunch and was overheard to say "The lady called me on the phone and said I can NEVER leave". She was quite upset and tearful during the phone conversation. As she concluded her call she made her daughter promise to "call the lady" and get it straightened out. Patient was later observed in the day room during group and was not tearful or anxious at that time. Patient is currently in a wheelchair r/t her unsteadiness since her fall 04/17. She has not reported pain when asked by this nurse.
[2019-04-18 15:49] VITALS: BP 97/57
--- NOTE | 2019-04-18 16:42 | RAD ---
PROCEDURE: FOREARM LEFT STUDY DATE: 04/18/2019 CLINICAL INDICATION / HISTORY: Additional views recommended due to lucency in the olecranon process in a patient who has left arm pain after a fall.. TECHNIQUE: 3 views of the left forearm were obtained COMPARISON: Left forearm x-rays of earlier the same day. FINDINGS: Previously questioned faint lucency through the olecranon process is not reproduced on the available views obtained on this exam. There is suggestion of soft tissue swelling over the medial epicondyle with mild skin thickening. No radiopaque foreign body or abnormal soft tissue gas. IMPRESSION: No acute osseous abnormality convincingly demonstrated in the left elbow but edema in the soft tissues overlying the medial epicondyle is present. If there is a discrepancy between imaging findings and the clinical exam, further imaging could be pursued with CT or MRI. Electronically signed by: Yaritza Thomason MD (04/18/2019 4:39 PM) [facility]
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
--- NOTE | 2019-04-18 18:22 | NUR ---
WEEKLY NOTE: Pt dtr, Eliseo participated in treatment team via telephone. Pt had a fall late last night and suffered a non-displaced pelvic fracture but is okay. Pt is getting Tramadol for pain and reports a lot of nausea potentially associated with the pain meds. Pt is eating roughly 50-75% of meals and sleeping roughly 6.5 hours per night. Pt is currently in a w/c due to the fall and has received x-rays and other tests. Dr. Donovan will be looking at the results and make a determination on what pt needs. SELINA also alerted pt dtr that [facility] met with pt this morning and they will be in contact with her. SELINA will continue to follow up with pt dtr and work on transitioning pt from [facility] to [facility].
[2019-04-18] MEDS: MIRTAZAPINE 15 MG TABLET PO SCH (20:00)
[2019-04-18] MEDS: MELATONIN 3 MG TABLET PO SCH (20:01)
--- NOTE | 2019-04-18 21:24 | PDOC ---
Exam Note: Sony Note: Please also refer to the separate dictated note~for this date of service dictated separately.~Patient seen individually. Discussed the patient with Nursing staff reviewed the chart.~Reviewed interim history and current functioning. Reviewed vital signs,~Labs/ Radiology~and current medications noted below. Continue current treatment with the changes noted in the dictated addendum note Assessment: Vital Signs/I&O: Vital Signs Date Time Temp Pulse Resp B/P (MAP) Pulse Ox O2 Delivery O2 Flow Rate FiO2 04/18/19 15:49 97.2 73 18 97/57 (70) 97 04/18/19 05:40 Room Air I & O 04/17/19 04/17/19 04/18/19 15:00 23:00 07:00 Intake Total 480 ml 480 ml 240 ml Balance 480 ml 480 ml 240 ml Current Medications: Meds: Current Medications Medications (Trade) Dose Ordered Sig/Mickey Route PRN Reason Start Time Stop Time Status Last Admin Dose Admin Tramadol HCl (Ultram) 50 mg PRN Q4HRS PRN PO PAIN 04/17/19 22:45 04/18/19 08:29 I have reviewed the current psychotropics carefully including drug interactions. Risk benefit ratio favors no change other than as noted in my dictated progress note. Diagnosis: Problems: (1) Major depressive disorder, recurrent episode (2) Mild cognitive disorder (3) Dementia, vascular, with depression (4) Bipolar disorder with depression (5) Major neurocognitive disorder HECTOR AL MD Apr 18, 2019 21:24
--- NOTE | 2019-04-18 23:55 | NUR ---
Pt located in the dayroom sitting calmly in wheelchair. Pt compliant with whole medications and pleasant during interaction. PRN Trazodone administered. When being taken to bed, pt became highly anxious stating that she was going to sleep through breakfast and then starve to . Pt informed that staff will wake her for breakfast. Pt currently sleeping in bed.
[2019-04-19 06:41] VITALS: BP 129/68
[2019-04-19 07:32] LABS: BASO % 1 % (0-3); EOS # 0.2 x10^3/uL (0.0-0.7); EOS % 3 % (0-3); HEMATOCRIT 34.4 % (36.0-47.0); HEMOGLOBIN 11.3 g/dL (12.0-15.5); LYMPH # 0.6 x10^3/uL (1.0-4.8); LYMPH % 12 % (24-48); MEAN CORPUSCULAR HEMOGLOBIN 32 pg (25-35); MEAN CORPUSCULAR HGB CONC 33 g/dL (31-37); MEAN CORPUSCULAR VOLUME 98 fL (79-100); MONO # 0.6 x10^3/uL (0.0-1.1); MONO % 11 % (0-9); NEUT # 3.6 x10^3uL (1.8-7.7); NEUT % 73 % (31-73); PLATELET COUNT 225 x10^3/uL (140-400); RED BLOOD COUNT 3.51 x10^6/uL (3.50-5.40); RED CELL DISTRIBUTION WIDTH 14.6 % (11.5-14.5)
[2019-04-19 07:49] LABS: ALBUMIN 3.2 g/dL (3.4-5.0); ALBUMIN/GLOBULIN RATIO 0.9 (1.0-1.7); CALCIUM 9.3 mg/dL (8.5-10.1); CREATININE 0.8 mg/dL (0.6-1.0); GFR 67.7; POTASSIUM 4.3 mmol/L (3.5-5.1); TOTAL BILIRUBIN 0.2 mg/dL (0.2-1.0); TOTAL PROTEIN 6.6 g/dL (6.4-8.2)
[2019-04-19] MEDS: ATORVASTATIN CALCIUM 20 MG TABLET PO SCH (08:41)
[2019-04-19] MEDS: DIVALPROEX 125 MG CAP.SPRINK PO SCH ×4 (08:41→20:03)
[2019-04-19] MEDS: LURASIDONE 40 MG TABLET. PO SCH (08:41)
[2019-04-19] MEDS: CHOLECALCIFEROL (VITAMIN D3) 1,000 UNIT TABLET PO SCH (08:42)
[2019-04-19] MEDS: CALCIUM CARB/VIT D3 500/200 TABLET PO SCH (08:42)
[2019-04-19] MEDS: ASPIRIN 325 MG TABLET PO SCH (08:42)
[2019-04-19] MEDS: amLODIPine BESYLATE 5 MG TABLET PO SCH (08:42)
[2019-04-19] MEDS: OXYBUTYNIN CHLORIDE 5 MG TABLET PO SCH ×2 (08:42→20:04)
[2019-04-19] MEDS: QUEtiapine 25 MG TABLET. PO SCH ×4 (08:42→20:05)
[2019-04-19] MEDS: MULTIVITAMIN with MINERAL TABLET. PO SCH (08:42)
[2019-04-19] MEDS: RIVASTIGMINE 9.5MG PATCH. TD SCH (08:43)
[2019-04-19] MEDS: GLUCOSAMINE/CHOND 500/400MG CAPSULE PO SCH ×2 (08:43→20:04)
[2019-04-19] MEDS: MEMANTINE 10 MG TABLET. PO SCH ×2 (08:43→20:03)
[2019-04-19] MEDS: ONDANSETRON ODT 4 MG TAB.RAPDIS PO PRN ×2 (08:57→12:32)
[2019-04-19 16:28] VITALS: BP 108/70
--- NOTE | 2019-04-19 17:57 | NUR ---
Pt cooperative with meds and assessment. Pt prefers to take meds in applesauce. c/o meds making her dizzy and nauseated. Pt participated in group, has been anxious throughout the day.
--- NOTE | 2019-04-19 19:03 | PN ---
DATE: 04/18/2019 PSYCHIATRIC PROGRESS NOTE This late entry 04/18/2019 covers the elements not covered in my initial note. SUBJECTIVE: I met with the patient in the evening of 04/18/2019, staffed a treatment team meeting with the entire team in the morning and the patient's daughter and friend attended this lengthy conference. The patient slept 6-1/2 hours. Appetite is 75%. She does show nondisplaced fracture, left pubic rami and we will defer to Dr. Donovan to rule out fracture, left forearm, again defer to Dr. Donovan. REVIEW OF SYSTEMS: Impaired ambulation, in wheelchair. No CV, , pulmonary, eye system symptoms on review. Complains of anxiety. MENTAL STATUS EXAM: Oriented to herself and situation. Speech is coherent, has some latency. Abstraction fair, computation impaired, language function intact, attention span short. Mood and affect withdrawn. LABORATORY DATA: Reviewed. IMPRESSION: Bipolar disorder, depressed with psychotic features; anxiety disorder, unspecified; major depressive disorder, recurrent, status post fall. PLAN: Continue psychotropics from initial note. Seroquel is being tapered and she has been started on Latuda. We will adjust further as clinically indicated. Rest unchanged. HECTOR AL MD DR: RENO/angelic JOB#: [id number] / [id number]
--- NOTE | 2019-04-19 19:08 | PN ---
DATE: 04/17/2019 This late entry of 04/17/2019 covers elements not covered in my initial note. SUBJECTIVE: I met with the patient evening of 04/17/2019. The patient slept 6-1/4 hours previous night per ROSE MARY Eric. She did have a fall walking from her bed to the bathroom at night, had a skin tear, left forearm. We will defer to Dr. Donovan for further workup. UA has reflex to culture. Does complain of some hip pain, but again we will see if Dr. Donovan orders an x-ray. REVIEW OF SYSTEMS: Ambulation impaired, currently in wheelchair. No CV, , pulmonary, eye system symptoms on review. MENTAL STATUS EXAM: Oriented to herself and situation. Speech coherent, has some latency. Abstraction fair, computation impaired, language function intact, attention span short. Mood and affect somewhat anxious, labile. LABORATORY DATA: Reviewed. IMPRESSION: Unchanged from initial note. PLAN: No change from initial note. Medical workup as above per Dr. Donovan. MAN Hector AL MD DR: RENO/angelic JOB#: [id number] / [id number]
[2019-04-19] MEDS: MIRTAZAPINE 15 MG TABLET PO SCH (20:04)
[2019-04-19] MEDS: MELATONIN 3 MG TABLET PO SCH (20:04)
[2019-04-19] MEDS: FAMOTIDINE 20 MG TABLET PO SCH (20:04)
--- NOTE | 2019-04-19 21:22 | PDOC ---
Exam Note: Sony Note: Please also refer to the separate dictated note~for this date of service dictated separately.~Patient seen individually. Discussed the patient with Nursing staff reviewed the chart.~Reviewed interim history and current functioning. Reviewed vital signs,~Labs/ Radiology~and current medications noted below. Continue current treatment with the changes noted in the dictated addendum note Assessment: Vital Signs/I&O: Vital Signs Date Time Temp Pulse Resp B/P (MAP) Pulse Ox O2 Delivery O2 Flow Rate FiO2 04/19/19 16:28 98.4 79 16 108/70 (83) 96 04/19/19 06:41 Room Air I & O 04/18/19 04/18/19 04/19/19 15:00 23:00 07:00 Intake Total 480 ml 240 ml 240 ml Balance 480 ml 240 ml 240 ml Labs: Laboratory Tests Test 04/19/19 06:39 White Blood Count 5.0 x10^3/uL (4.0-11.0) Red Blood Count 3.51 x10^6/uL (3.50-5.40) Hemoglobin 11.3 g/dL (12.0-15.5) L Hematocrit 34.4 % (36.0-47.0) L Mean Corpuscular Volume 98 fL (79-100) Mean Corpuscular Hemoglobin 32 pg (25-35) Mean Corpuscular Hemoglobin Concent 33 g/dL (31-37) Red Cell Distribution Width 14.6 % (11.5-14.5) H Platelet Count 225 x10^3/uL (140-400) Neutrophils (%) (Auto) 73 % (31-73) Lymphocytes (%) (Auto) 12 % (24-48) L Monocytes (%) (Auto) 11 % (0-9) H Eosinophils (%) (Auto) 3 % (0-3) Basophils (%) (Auto) 1 % (0-3) Neutrophils # (Auto) 3.6 x10^3uL (1.8-7.7) Lymphocytes # (Auto) 0.6 x10^3/uL (1.0-4.8) L Monocytes # (Auto) 0.6 x10^3/uL (0.0-1.1) Eosinophils # (Auto) 0.2 x10^3/uL (0.0-0.7) Basophils # (Auto) 0.0 x10^3/uL (0.0-0.2) Sodium Level 142 mmol/L (136-145) Potassium Level 4.3 mmol/L (3.5-5.1) Chloride Level 104 mmol/L (98-107) Carbon Dioxide Level 32 mmol/L (21-32) Anion Gap 6 (6-14) Blood Urea Nitrogen 13 mg/dL (7-20) Creatinine 0.8 mg/dL (0.6-1.0) Estimated GFR (Cockcroft-Gault) 67.7 BUN/Creatinine Ratio 16 (6-20) Glucose Level 78 mg/dL (70-99) Calcium Level 9.3 mg/dL (8.5-10.1) Total Bilirubin 0.2 mg/dL (0.2-1.0) Aspartate Amino Transferase (AST) 22 U/L (15-37) Alanine Aminotransferase (ALT) 19 U/L (14-59) Alkaline Phosphatase 73 U/L (46-116) Total Protein 6.6 g/dL (6.4-8.2) Albumin 3.2 g/dL (3.4-5.0) L Albumin/Globulin Ratio 0.9 (1.0-1.7) L Current Medications: Meds: Current Medications Medications (Trade) Dose Ordered Sig/Mickey Route PRN Reason Start Time Stop Time Status Last Admin Dose Admin Famotidine (Pepcid) 20 mg DAILY PO 04/19/19 21:00 04/19/19 20:04 I have reviewed the current psychotropics carefully including drug interactions. Risk benefit ratio favors no change other than as noted in my dictated progress note. Diagnosis: Problems: (1) Major depressive disorder, recurrent episode (2) Mild cognitive disorder (3) Dementia, vascular, with depression (4) Bipolar disorder with depression (5) Major neurocognitive disorder HECTOR AL MD Apr 19, 2019 21:22
--- NOTE | 2019-04-20 00:12 | NUR ---
last evening pt was in day room watching a movie. She was less anxious than she has been on previous shifts. She took her meds without difficulty was cooperative with HS cares and has been sleeping well.
[2019-04-20] MEDS: traMADol 50 MG TABLET PO PRN (06:19)
--- NOTE | 2019-04-20 06:21 | NUR ---
PRN given for co pain.
[2019-04-20 06:37] VITALS: BP 135/78
[2019-04-20] MEDS: GLUCOSAMINE/CHOND 500/400MG CAPSULE PO SCH ×2 (08:38→21:43)
[2019-04-20] MEDS: OXYBUTYNIN CHLORIDE 5 MG TABLET PO SCH ×2 (08:38→21:43)
[2019-04-20] MEDS: DIVALPROEX 125 MG CAP.SPRINK PO SCH ×4 (08:38→21:43)
[2019-04-20] MEDS: ASPIRIN 325 MG TABLET PO SCH (08:38)
[2019-04-20] MEDS: ATORVASTATIN CALCIUM 20 MG TABLET PO SCH (08:39)
[2019-04-20] MEDS: QUEtiapine 25 MG TABLET. PO SCH ×4 (08:39→21:42)
[2019-04-20] MEDS: MULTIVITAMIN with MINERAL TABLET. PO SCH (08:39)
[2019-04-20] MEDS: MEMANTINE 10 MG TABLET. PO SCH ×2 (08:39→21:42)
[2019-04-20] MEDS: FAMOTIDINE 20 MG TABLET PO SCH (08:39)
[2019-04-20] MEDS: CALCIUM CARB/VIT D3 500/200 TABLET PO SCH (08:39)
[2019-04-20] MEDS: amLODIPine BESYLATE 5 MG TABLET PO SCH (08:39)
[2019-04-20] MEDS: RIVASTIGMINE 9.5MG PATCH. TD SCH (08:40)
[2019-04-20] MEDS: CHOLECALCIFEROL (VITAMIN D3) 1,000 UNIT TABLET PO SCH (08:40)
[2019-04-20] MEDS: LURASIDONE 40 MG TABLET. PO SCH ×2 (09:02→17:07)
--- NOTE | 2019-04-20 12:39 | NUR ---
Pt is cooperative, compliant and less anxious today than yesterday. She is compliant with her medications and assessment. No agitation, no aggression, no hallucinations, no delusions.
[2019-04-20 16:28] VITALS: BP 104/57
[2019-04-20] MEDS: ONDANSETRON ODT 4 MG TAB.RAPDIS PO PRN (21:01)
--- NOTE | 2019-04-20 21:22 | PDOC ---
Exam Note: Sony Note: Please also refer to the separate dictated note~for this date of service dictated separately.~Patient seen individually. Discussed the patient with Nursing staff reviewed the chart.~Reviewed interim history and current functioning. Reviewed vital signs,~Labs/ Radiology~and current medications noted below. Continue current treatment with the changes noted in the dictated addendum note Assessment: Vital Signs/I&O: Vital Signs Date Time Temp Pulse Resp B/P (MAP) Pulse Ox O2 Delivery O2 Flow Rate FiO2 04/20/19 16:28 97.1 66 18 104/57 (73) 96 Room Air I & O 04/19/19 04/19/19 04/20/19 15:00 23:00 07:00 Intake Total 480 ml 0 ml 120 ml Balance 480 ml 0 ml 120 ml Current Medications: Meds: Current Medications Medications (Trade) Dose Ordered Sig/Mickey Route PRN Reason Start Time Stop Time Status Last Admin Dose Admin Lurasidone HCl (Latuda) 20 mg BIDWMEALS PO 04/20/19 08:00 04/20/19 17:07 Quetiapine Fumarate (SEROquel) 12.5 mg DAILY PO 04/20/19 09:00 04/22/19 23:00 04/20/19 08:39 Quetiapine Fumarate (SEROquel) 12.5 mg 1300 PO 04/20/19 13:00 04/22/19 13:01 04/20/19 13:50 I have reviewed the current psychotropics carefully including drug interactions. Risk benefit ratio favors no change other than as noted in my dictated progress note. Diagnosis: Problems: (1) Major depressive disorder, recurrent episode (2) Mild cognitive disorder (3) Dementia, vascular, with depression (4) Bipolar disorder with depression (5) Major neurocognitive disorder HECTOR AL MD Apr 20, 2019 21:22
[2019-04-20] MEDS: MELATONIN 3 MG TABLET PO SCH (21:43)
[2019-04-20] MEDS: MIRTAZAPINE 15 MG TABLET PO SCH (21:43)
--- NOTE | 2019-04-20 23:22 | NUR ---
Nursing Note Pt gagging intermittently, zofran given. Very whiny with somatic complaints, states that she is nauseated and that I already gave her meds. Argues constantly about wether or not she took meds. Reminded her that initially she only took the zofran. Cries and asks for an emesis basin because she is surely going to vomit.
[2019-04-21 06:33] VITALS: BP 129/74
[2019-04-21] MEDS: GLUCOSAMINE/CHOND 500/400MG CAPSULE PO SCH ×2 (08:10→20:24)
[2019-04-21] MEDS: DIVALPROEX 125 MG CAP.SPRINK PO SCH ×4 (08:10→20:24)
[2019-04-21] MEDS: ATORVASTATIN CALCIUM 20 MG TABLET PO SCH (08:10)
[2019-04-21] MEDS: ASPIRIN 325 MG TABLET PO SCH (08:10)
[2019-04-21] MEDS: MEMANTINE 10 MG TABLET. PO SCH ×2 (08:10→20:24)
[2019-04-21] MEDS: OXYBUTYNIN CHLORIDE 5 MG TABLET PO SCH ×2 (08:10→20:25)
[2019-04-21] MEDS: FAMOTIDINE 20 MG TABLET PO SCH (08:11)
[2019-04-21] MEDS: amLODIPine BESYLATE 5 MG TABLET PO SCH (08:11)
[2019-04-21] MEDS: QUEtiapine 25 MG TABLET. PO SCH ×4 (08:11→20:26)
[2019-04-21] MEDS: CALCIUM CARB/VIT D3 500/200 TABLET PO SCH (08:11)
[2019-04-21] MEDS: RIVASTIGMINE 9.5MG PATCH. TD SCH (08:12)
[2019-04-21] MEDS: MULTIVITAMIN with MINERAL TABLET. PO SCH (08:12)
[2019-04-21] MEDS: CHOLECALCIFEROL (VITAMIN D3) 1,000 UNIT TABLET PO SCH (08:12)
[2019-04-21] MEDS: LURASIDONE 40 MG TABLET. PO SCH ×2 (08:15→17:11)
--- NOTE | 2019-04-21 10:43 | NUR ---
No agitation, no aggression, no hallucinations, no delusions. Pt is cooperative, compliant and less anxious today than yesterday. She is compliant with her medications and assessment.
[2019-04-21] MEDS: ONDANSETRON ODT 4 MG TAB.RAPDIS PO PRN (12:24)
[2019-04-21 16:15] VITALS: BP 120/70
[2019-04-21] MEDS: MELATONIN 3 MG TABLET PO SCH (20:24)
[2019-04-21] MEDS: MIRTAZAPINE 15 MG TABLET PO SCH (20:25)
--- NOTE | 2019-04-21 21:26 | PDOC ---
Exam Note: Sony Note: Please also refer to the separate dictated note~for this date of service dictated separately.~Patient seen individually. Discussed the patient with Nursing staff reviewed the chart.~Reviewed interim history and current functioning. Reviewed vital signs,~Labs/ Radiology~and current medications noted below. Continue current treatment with the changes noted in the dictated addendum note Assessment: Vital Signs/I&O: Vital Signs Date Time Temp Pulse Resp B/P (MAP) Pulse Ox O2 Delivery O2 Flow Rate FiO2 04/21/19 16:15 97.4 67 16 120/70 (87) 98 04/20/19 16:28 Room Air I & O 04/20/19 04/20/19 04/21/19 15:00 23:00 07:00 Intake Total 700 ml 360 ml 120 ml Balance 700 ml 360 ml 120 ml Current Medications: I have reviewed the current psychotropics carefully including drug interactions. Risk benefit ratio favors no change other than as noted in my dictated progress note. Diagnosis: Problems: (1) Major depressive disorder, recurrent episode (2) Mild cognitive disorder (3) Dementia, vascular, with depression (4) Bipolar disorder with depression (5) Major neurocognitive disorder HECTOR AL MD Apr 21, 2019 21:26
--- NOTE | 2019-04-21 23:14 | PN ---
DATE: 04/19/2019 PSYCHIATRIC PROGRESS NOTE. This late entry of 04/19/2019 covers the elements not covered in my initial note. SUBJECTIVE: I met with the patient in the evening of 04/19/2019. Per ROSE MARY Oneal, the patient slept 5-1/4 hours previous night. She has had some complaints of nausea and states she has difficulty swallowing, anxious. We will defer to Dr. Donovan. She does have a nondisplaced fracture of left pubic rami, again defer to Dr. Donovan. REVIEW OF SYSTEMS: Positive for the nausea. Impaired ambulation with walker. No CV, , pulmonary, eye system symptoms on review. MENTAL STATUS EXAMINATION: The patient is oriented to herself and situation. Speech is coherent, has some latency. Abstraction fair, computation impaired, language function intact, attention span short. Mood and affect remain somewhat anxious, labile. LABORATORY DATA: Reviewed. IMPRESSION: Unchanged from initial note. PLAN: No change from initial note. HECTOR AL MD DR: RENO/angelic JOB#: [id number] / [id number]
[2019-04-22 06:00] VITALS: BP 147/71
[2019-04-22] MEDS: ASPIRIN 325 MG TABLET PO SCH (08:26)
[2019-04-22] MEDS: DIVALPROEX 125 MG CAP.SPRINK PO SCH ×4 (08:26→20:43)
[2019-04-22] MEDS: LURASIDONE 40 MG TABLET. PO SCH ×2 (08:26→17:33)
[2019-04-22] MEDS: OXYBUTYNIN CHLORIDE 5 MG TABLET PO SCH ×2 (08:27→20:43)
[2019-04-22] MEDS: amLODIPine BESYLATE 5 MG TABLET PO SCH (08:27)
[2019-04-22] MEDS: GLUCOSAMINE/CHOND 500/400MG CAPSULE PO SCH ×2 (08:27→20:43)
[2019-04-22] MEDS: ATORVASTATIN CALCIUM 20 MG TABLET PO SCH (08:27)
[2019-04-22] MEDS: MEMANTINE 10 MG TABLET. PO SCH ×2 (08:27→20:43)
[2019-04-22] MEDS: CALCIUM CARB/VIT D3 500/200 TABLET PO SCH (08:28)
[2019-04-22] MEDS: MULTIVITAMIN with MINERAL TABLET. PO SCH (08:28)
[2019-04-22] MEDS: FAMOTIDINE 20 MG TABLET PO SCH (08:28)
[2019-04-22] MEDS: QUEtiapine 25 MG TABLET. PO SCH ×4 (08:28→20:43)
[2019-04-22] MEDS: RIVASTIGMINE 9.5MG PATCH. TD SCH (08:29)
[2019-04-22] MEDS: CHOLECALCIFEROL (VITAMIN D3) 1,000 UNIT TABLET PO SCH (08:29)
--- NOTE | 2019-04-22 10:35 | NUR ---
Pt is cooperative, compliant and confused. No agitation, no aggression, no hallucinations, no delusions. She is compliant with her medications and assessment.
--- NOTE | 2019-04-22 12:23 | PN ---
DATE: 04/21/2019 PSYCHIATRIC PROGRESS NOTE This late entry 04/21/2019 covers elements not covered in my initial note. SUBJECTIVE: I met with the patient in the evening. Per ROSE MARY Eduardo, the patient slept 6 hours previous night. The patient continues to have complaints of daytime tiredness and we will stop the Seroquel completely as Latuda is being adjusted. She remains anxious. REVIEW OF SYSTEMS: Ambulation impaired, with walker. No CV, , pulmonary, eye system symptoms on review. MENTAL STATUS EXAM: Oriented to herself and situation. Speech has some latency, coherent, often responses monosyllabic. Abstraction fair, computation impaired, language function intact, attention span short. Mood and affect withdrawn. LABORATORY DATA: Reviewed. IMPRESSION: Unchanged from initial note. PLAN: No change from initial note. Stop the Seroquel. Rest unchanged for now. MAN Hector AL MD DR: RENO/angelic JOB#: [id number] / [id number]
[2019-04-22 15:50] VITALS: BP 125/78
[2019-04-22] MEDS: MIRTAZAPINE 15 MG TABLET PO SCH (20:43)
[2019-04-22] MEDS: MELATONIN 3 MG TABLET PO SCH (20:43)
[2019-04-22] MEDS: traMADol 50 MG TABLET PO PRN (20:44)
[2019-04-22] MEDS: traZODone 50 MG TABLET. PO PRN (20:44)
--- NOTE | 2019-04-22 21:17 | PDOC ---
Exam Note: Sony Note: Please also refer to the separate dictated note~for this date of service dictated separately.~Patient seen individually. Discussed the patient with Nursing staff reviewed the chart.~Reviewed interim history and current functioning. Reviewed vital signs,~Labs/ Radiology~and current medications noted below. Continue current treatment with the changes noted in the dictated addendum note Assessment: Vital Signs/I&O: Vital Signs Date Time Temp Pulse Resp B/P (MAP) Pulse Ox O2 Delivery O2 Flow Rate FiO2 04/22/19 20:44 18 04/22/19 15:50 97.4 85 125/78 (94) 97 04/20/19 16:28 Room Air I & O 04/21/19 04/21/19 04/22/19 15:00 23:00 07:00 Intake Total 240 ml 240 ml 240 ml Balance 240 ml 240 ml 240 ml Current Medications: I have reviewed the current psychotropics carefully including drug interactions. Risk benefit ratio favors no change other than as noted in my dictated progress note. Diagnosis: Problems: (1) Major depressive disorder, recurrent episode (2) Mild cognitive disorder (3) Dementia, vascular, with depression (4) Bipolar disorder with depression (5) Major neurocognitive disorder HECTOR AL MD Apr 22, 2019 21:17
--- NOTE | 2019-04-22 23:00 | PN ---
DATE: 04/20/2019 PSYCHIATRIC PROGRESS NOTE This late entry 04/20/2019 covers elements not covered in my initial note. SUBJECTIVE: I met with the patient evening of 04/20/2019. Per ROSE MARY Eduardo, the patient slept 6-1/4 hours. She has been less anxious, whiny, less somatically preoccupied. REVIEW OF SYSTEMS: Ambulation impaired with walker. No CV, , pulmonary, eye system symptoms on review. MENTAL STATUS EXAM: Oriented to herself and situation. Speech has some latency, coherent. Abstraction fair, computation impaired, language function intact. Mood and affect still depressed, anxious at times, a little labile. LABORATORY DATA: Reviewed. IMPRESSION: Unchanged from initial note. PLAN: No change from initial note. MAN Hector AL MD DR: RENO/angelic JOB#: [id number] / [id number]
--- NOTE | 2019-04-23 00:19 | NUR ---
Patient is located in day room at time of medication administration and assessment. Patient is making somatic complaints about nausea during assessment. Patient is compliant with medications whole with water. Patient is resting in bed at this time. Will continue to monitor.
[2019-04-23 06:17] VITALS: BP 131/73
[2019-04-23] MEDS: FAMOTIDINE 20 MG TABLET PO SCH (08:08)
[2019-04-23] MEDS: amLODIPine BESYLATE 5 MG TABLET PO SCH (08:08)
[2019-04-23] MEDS: MULTIVITAMIN with MINERAL TABLET. PO SCH (08:08)
[2019-04-23] MEDS: DIVALPROEX 125 MG CAP.SPRINK PO SCH ×4 (08:08→19:37)
[2019-04-23] MEDS: OXYBUTYNIN CHLORIDE 5 MG TABLET PO SCH ×2 (08:08→19:37)
[2019-04-23] MEDS: RIVASTIGMINE 9.5MG PATCH. TD SCH (08:08)
[2019-04-23] MEDS: CALCIUM CARB/VIT D3 500/200 TABLET PO SCH (08:08)
[2019-04-23] MEDS: GLUCOSAMINE/CHOND 500/400MG CAPSULE PO SCH ×2 (08:08→19:37)
[2019-04-23] MEDS: MEMANTINE 10 MG TABLET. PO SCH ×2 (08:09→19:37)
[2019-04-23] MEDS: CHOLECALCIFEROL (VITAMIN D3) 1,000 UNIT TABLET PO SCH (08:09)
[2019-04-23] MEDS: ATORVASTATIN CALCIUM 20 MG TABLET PO SCH (08:09)
[2019-04-23] MEDS: ASPIRIN 325 MG TABLET PO SCH (08:09)
[2019-04-23] MEDS: LURASIDONE 40 MG TABLET. PO SCH ×2 (08:09→16:55)
[2019-04-23] MEDS: traMADol 50 MG TABLET PO PRN (08:10)
--- NOTE | 2019-04-23 10:17 | NUR ---
Nursing Note Pt somatic, tearful, anxious,and requested pain pill c/o hip pain 09/29. PRN given per eMAR with her morning meds. When asked what is wrong and how can this staff be of help, pt states 'I don't know. I am nauseated and I took the sleeping pill and I shouldn't take it". Pt calmed down when reassured that she didn't get a sleeping pill this AM. No aggression. No hallucinations. Denies SI.
[2019-04-23 16:10] VITALS: BP 114/71
[2019-04-23] MEDS: ONDANSETRON ODT 4 MG TAB.RAPDIS PO PRN (17:26)
--- NOTE | 2019-04-23 17:30 | NUR ---
Nursing Note Pt refusing to eat, c/o nausea and gagging intermittently, PRN given per eMAR.
[2019-04-23] MEDS: MELATONIN 3 MG TABLET PO SCH (19:37)
[2019-04-23] MEDS: MIRTAZAPINE 15 MG TABLET PO SCH (19:37)
[2019-04-23] MEDS ORDERED: QUEtiapine 25 MG TABLET. PO SCH (21:00)
--- NOTE | 2019-04-23 21:27 | PDOC ---
Exam Note: Sony Note: Please also refer to the separate dictated note~for this date of service dictated separately.~Patient seen individually. Discussed the patient with Nursing staff reviewed the chart.~Reviewed interim history and current functioning. Reviewed vital signs,~Labs/ Radiology~and current medications noted below. Continue current treatment with the changes noted in the dictated addendum note Assessment: Vital Signs/I&O: Vital Signs Date Time Temp Pulse Resp B/P (MAP) Pulse Ox O2 Delivery O2 Flow Rate FiO2 04/23/19 16:10 97.8 64 20 114/71 (85) 94 04/20/19 16:28 Room Air I & O 04/22/19 04/22/19 04/23/19 14:59 22:59 06:59 Intake Total 600 ml 240 ml 120 ml Balance 600 ml 240 ml 120 ml Current Medications: I have reviewed the current psychotropics carefully including drug interactions. Risk benefit ratio favors no change other than as noted in my dictated progress note. Diagnosis: Problems: (1) Major depressive disorder, recurrent episode (2) Mild cognitive disorder (3) Dementia, vascular, with depression (4) Bipolar disorder with depression (5) Major neurocognitive disorder HECTOR AL MD Apr 23, 2019 21:27
--- NOTE | 2019-04-24 00:41 | PN ---
DATE: 04/22/2019 PSYCHIATRIC PROGRESS NOTE This late entry 04/22/2019 covers elements not covered in my initial note. SUBJECTIVE: I met with the patient evening of 04/22/2019. Per Heather RN, patient slept 7 hours previous night. She is anxious in the morning, had to be encouraged to eat. Seroquel has been discontinued and she is on Latuda 20 mg twice a day as a mood stabilizer for her bipolar disorder. REVIEW OF SYSTEMS: Vague somatic symptoms fairly generalized including vague pains and GI symptoms. No CV, , pulmonary, eye system symptoms on review. MENTAL STATUS EXAM: Oriented to herself and situation. Speech is coherent, can be rapid at times. She met with me on 3 different occasions in the evening. Abstraction fair, computation impaired, language function intact, attention span short. Mood and affect remains labile, anxious. LABORATORY DATA: Reviewed. IMPRESSION: Bipolar disorder, mixed with psychotic features, mild cognitive impairment; anxiety disorder, unspecified. PLAN: Continue Latuda 20 mg twice a day. Maintain rest of the psychotropics unchanged from initial note including Luvox, melatonin, Namenda, Exelon patch, Remeron, Depakote. MAN Hector AL MD DR: RENO/angelic JOB#: [id number] / [id number]
--- NOTE | 2019-04-24 01:52 | NUR ---
Last evening pt was in day room and watched a movie. She was quiet but anxious when talking to her. She became tearful at times and was worried about starving, oversleeping, being too tired to wake up tomorrow.... She took meds whole without difficulty then went to bed and has been sleeping well.
[2019-04-24 05:56] VITALS: BP 123/66
[2019-04-24 07:16] LABS: BASO % 1 % (0-3); EOS # 0.2 x10^3/uL (0.0-0.7); EOS % 4 % (0-3); HEMATOCRIT 32.6 % (36.0-47.0); HEMOGLOBIN 10.7 g/dL (12.0-15.5); LYMPH # 0.9 x10^3/uL (1.0-4.8); LYMPH % 18 % (24-48); MEAN CORPUSCULAR HEMOGLOBIN 32 pg (25-35); MEAN CORPUSCULAR HGB CONC 33 g/dL (31-37); MEAN CORPUSCULAR VOLUME 98 fL (79-100); MONO # 0.6 x10^3/uL (0.0-1.1); MONO % 12 % (0-9); NEUT # 3.1 x10^3uL (1.8-7.7); NEUT % 65 % (31-73); PLATELET COUNT 195 x10^3/uL (140-400); RED BLOOD COUNT 3.33 x10^6/uL (3.50-5.40); RED CELL DISTRIBUTION WIDTH 14.3 % (11.5-14.5); WHITE BLOOD COUNT 4.8 x10^3/uL (4.0-11.0)
[2019-04-24 07:31] LABS: CREATININE 0.9 mg/dL (0.6-1.0); GFR 59.1; TOTAL BILIRUBIN 0.3 mg/dL (0.2-1.0); TOTAL PROTEIN 6.1 g/dL (6.4-8.2)
[2019-04-24] MEDS: MULTIVITAMIN with MINERAL TABLET. PO SCH (08:39)
[2019-04-24] MEDS: FAMOTIDINE 20 MG TABLET PO SCH (08:39)
[2019-04-24] MEDS: ATORVASTATIN CALCIUM 20 MG TABLET PO SCH (08:39)
[2019-04-24] MEDS: LURASIDONE 40 MG TABLET. PO SCH ×2 (08:39→17:12)
[2019-04-24] MEDS: MEMANTINE 10 MG TABLET. PO SCH ×2 (08:40→19:35)
[2019-04-24] MEDS: DIVALPROEX 125 MG CAP.SPRINK PO SCH ×4 (08:40→19:36)
[2019-04-24] MEDS: OXYBUTYNIN CHLORIDE 5 MG TABLET PO SCH ×2 (08:40→19:36)
[2019-04-24] MEDS: CHOLECALCIFEROL (VITAMIN D3) 1,000 UNIT TABLET PO SCH (08:40)
[2019-04-24] MEDS: ASPIRIN 325 MG TABLET PO SCH (08:40)
[2019-04-24] MEDS: GLUCOSAMINE/CHOND 500/400MG CAPSULE PO SCH ×2 (08:40→19:35)
[2019-04-24] MEDS: CALCIUM CARB/VIT D3 500/200 TABLET PO SCH (08:40)
[2019-04-24] MEDS: RIVASTIGMINE 9.5MG PATCH. TD SCH (08:41)
[2019-04-24] MEDS: amLODIPine BESYLATE 5 MG TABLET PO SCH (08:41)
--- NOTE | 2019-04-24 13:02 | NUR ---
Nursing note: Pt was in dining room for morning meds and assessment. She was compliant with her meds whole and cooperative with her assessment. Pt became somatic, stating she couldn't eat because "I just upchuck it right after". Pt was observed chewing up the food and then spitting it onto her tray. At lunch, pt c/o dyspepsia. PRN given at that time per eMAR. Pt was encouraged to eat some of the main meal before eating dessert. She continued to be somatic while she ate her food, but once she was allowed her dessert, she ate it with no problems. Pt is currently sitting in the day room. Will continue to monitor.
[2019-04-24 15:56] VITALS: BP 129/79
[2019-04-24] MEDS: MELATONIN 3 MG TABLET PO SCH (19:35)
[2019-04-24] MEDS: MIRTAZAPINE 15 MG TABLET PO SCH (19:36)
--- NOTE | 2019-04-24 21:20 | PDOC ---
Exam Note: Sony Note: Please also refer to the separate dictated note~for this date of service dictated separately.~Patient seen individually. Discussed the patient with Nursing staff reviewed the chart.~Reviewed interim history and current functioning. Reviewed vital signs,~Labs/ Radiology~and current medications noted below. Continue current treatment with the changes noted in the dictated addendum note Assessment: Vital Signs/I&O: Vital Signs Date Time Temp Pulse Resp B/P (MAP) Pulse Ox O2 Delivery O2 Flow Rate FiO2 04/24/19 15:56 98.0 64 16 129/79 (96) 95 04/20/19 16:28 Room Air I & O 04/23/19 04/23/19 04/24/19 15:00 23:00 07:00 Intake Total 240 ml 360 ml Balance 240 ml 360 ml Labs: Laboratory Tests Test 04/24/19 06:58 White Blood Count 4.8 x10^3/uL (4.0-11.0) Red Blood Count 3.33 x10^6/uL (3.50-5.40) L Hemoglobin 10.7 g/dL (12.0-15.5) L Hematocrit 32.6 % (36.0-47.0) L Mean Corpuscular Volume 98 fL (79-100) Mean Corpuscular Hemoglobin 32 pg (25-35) Mean Corpuscular Hemoglobin Concent 33 g/dL (31-37) Red Cell Distribution Width 14.3 % (11.5-14.5) Platelet Count 195 x10^3/uL (140-400) Neutrophils (%) (Auto) 65 % (31-73) Lymphocytes (%) (Auto) 18 % (24-48) L Monocytes (%) (Auto) 12 % (0-9) H Eosinophils (%) (Auto) 4 % (0-3) H Basophils (%) (Auto) 1 % (0-3) Neutrophils # (Auto) 3.1 x10^3uL (1.8-7.7) Lymphocytes # (Auto) 0.9 x10^3/uL (1.0-4.8) L Monocytes # (Auto) 0.6 x10^3/uL (0.0-1.1) Eosinophils # (Auto) 0.2 x10^3/uL (0.0-0.7) Basophils # (Auto) 0.0 x10^3/uL (0.0-0.2) Sodium Level 144 mmol/L (136-145) Potassium Level 4.0 mmol/L (3.5-5.1) Chloride Level 106 mmol/L (98-107) Carbon Dioxide Level 30 mmol/L (21-32) Anion Gap 8 (6-14) Blood Urea Nitrogen 22 mg/dL (7-20) H Creatinine 0.9 mg/dL (0.6-1.0) Estimated GFR (Cockcroft-Gault) 59.1 BUN/Creatinine Ratio 24 (6-20) H Glucose Level 67 mg/dL (70-99) L Calcium Level 9.0 mg/dL (8.5-10.1) Total Bilirubin 0.3 mg/dL (0.2-1.0) Aspartate Amino Transferase (AST) 21 U/L (15-37) Alanine Aminotransferase (ALT) 19 U/L (14-59) Alkaline Phosphatase 66 U/L (46-116) Total Protein 6.1 g/dL (6.4-8.2) L Albumin 3.0 g/dL (3.4-5.0) L Albumin/Globulin Ratio 1.0 (1.0-1.7) Current Medications: I have reviewed the current psychotropics carefully including drug interactions. Risk benefit ratio favors no change other than as noted in my dictated progress note. Diagnosis: Problems: (1) Major depressive disorder, recurrent episode (2) Mild cognitive disorder (3) Dementia, vascular, with depression (4) Bipolar disorder with depression (5) Major neurocognitive disorder HECTOR AL MD Apr 24, 2019 21:20
--- NOTE | 2019-04-24 22:10 | PN ---
DATE: 04/23/2019 PSYCHIATRIC PROGRESS NOTE This late entry, 04/22, covers the elements not covered in my initial note. SUBJECTIVE: Per ROSE MARY Mc, the patient slept 6-1/2 hours previous night. She remains anxious, complains of being tired during the day believes she has mistakenly taking sleeping pills during the day. We have stopped her Seroquel entirely which might have caused some sedation in the past with a subjective perception of this persists with the patient. She still complains of some hip pain, does have a nondisplaced pubic fracture, status post fall. REVIEW OF SYSTEMS: Ambulation impaired with walker/wheelchair, complains of pain. No CV, , pulmonary, eye systems symptoms on review, quite anxious. MENTAL STATUS EXAM: Oriented to herself and situation. Speech is coherent, abstraction fair, computation impaired, language function intact, attention span short. Mood and affect somewhat anxious, labile. LABORATORY DATA: Reviewed. IMPRESSION: Unchanged from initial note. PLAN: No change from initial note. HECTOR AL MD DR: RENO/angelic JOB#: [id number] / [id number]
--- NOTE | 2019-04-25 00:08 | NUR ---
Last evening pt was in day room watching TV. When HS meds given she was very anxious about the timing of meds and that she may sleep too long and had many other concerns. Eventually she requested her meds and took them whole without difficulty.Since going to bed she has been sleeping.
[2019-04-25] MEDS: traMADol 50 MG TABLET PO PRN (05:41)
--- NOTE | 2019-04-25 05:48 | NUR ---
PRN pain med given for L hip pain. Pt up to BR and tearful because her toilet has been flushed and now she will not be able to have a BM.
[2019-04-25 06:08] VITALS: BP 122/70
[2019-04-25] MEDS: MULTIVITAMIN with MINERAL TABLET. PO SCH (09:03)
[2019-04-25] MEDS: GLUCOSAMINE/CHOND 500/400MG CAPSULE PO SCH ×2 (09:03→20:29)
[2019-04-25] MEDS: ATORVASTATIN CALCIUM 20 MG TABLET PO SCH (09:03)
[2019-04-25] MEDS: RIVASTIGMINE 9.5MG PATCH. TD SCH (09:03)
[2019-04-25] MEDS: OXYBUTYNIN CHLORIDE 5 MG TABLET PO SCH ×2 (09:04→20:29)
[2019-04-25] MEDS: MEMANTINE 10 MG TABLET. PO SCH ×2 (09:04→20:29)
[2019-04-25] MEDS: FAMOTIDINE 20 MG TABLET PO SCH (09:04)
[2019-04-25] MEDS: amLODIPine BESYLATE 5 MG TABLET PO SCH (09:04)
[2019-04-25] MEDS: CALCIUM CARB/VIT D3 500/200 TABLET PO SCH (09:04)
[2019-04-25] MEDS: DIVALPROEX 125 MG CAP.SPRINK PO SCH ×4 (09:04→20:29)
[2019-04-25] MEDS: ASPIRIN 325 MG TABLET PO SCH (09:04)
[2019-04-25] MEDS: CHOLECALCIFEROL (VITAMIN D3) 1,000 UNIT TABLET PO SCH (09:04)
[2019-04-25] MEDS: LURASIDONE 40 MG TABLET. PO SCH ×2 (09:04→17:11)
[2019-04-25] MEDS: ONDANSETRON ODT 4 MG TAB.RAPDIS PO PRN (09:05)
--- NOTE | 2019-04-25 10:15 | NUR ---
SELINA attempted to contact Eliseo to participate in treatment team via telephone and she did not answer. No message was left; SELINA will attempt to contact Eliseo at a later date.
--- NOTE | 2019-04-25 11:13 | NUR ---
WEEKLY ACTIVITY THERAPY NOTE Date of Admission: 03/20/2018 Date of AT Assessment: 03/23/2019 Goal aimed: to reduce stress and increase engagement Initial Goal: Pt. will participate in at least five Activity Therapy groups per week. Goal changed 04/04: Pt. 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
--- NOTE | 2019-04-25 11:38 | NUR ---
Nursing Note Pt somatic, anxious,and c/o feeling nauseated requested Zofran. PRN given per eMAR with her morning meds. Pt refusing food states "Food here makes me sick that's why I'm always nauseated." No aggression. No hallucinations. Denies SI.
[2019-04-25 16:19] VITALS: BP 102/53
[2019-04-25] MEDS: MELATONIN 3 MG TABLET PO SCH (20:29)
[2019-04-25] MEDS: MIRTAZAPINE 15 MG TABLET PO SCH (20:29)
--- NOTE | 2019-04-25 21:20 | PDOC ---
Exam Note: Sony Note: Please also refer to the separate dictated note~for this date of service dictated separately.~Patient seen individually. Discussed the patient with Nursing staff reviewed the chart.~Reviewed interim history and current functioning. Reviewed vital signs,~Labs/ Radiology~and current medications noted below. Continue current treatment with the changes noted in the dictated addendum note Assessment: Vital Signs/I&O: Vital Signs Date Time Temp Pulse Resp B/P (MAP) Pulse Ox O2 Delivery O2 Flow Rate FiO2 04/25/19 16:19 97.4 86 16 102/53 (69) 96 04/25/19 06:08 Room Air I & O 04/24/19 04/24/19 04/25/19 15:00 23:00 07:00 Intake Total 220 ml 600 ml Balance 220 ml 600 ml Current Medications: I have reviewed the current psychotropics carefully including drug interactions. Risk benefit ratio favors no change other than as noted in my dictated progress note. Diagnosis: Problems: (1) Major depressive disorder, recurrent episode (2) Mild cognitive disorder (3) Dementia, vascular, with depression (4) Bipolar disorder with depression (5) Major neurocognitive disorder HECTOR AL MD Apr 25, 2019 21:20
--- NOTE | 2019-04-25 23:13 | NUR ---
Nursing Note The patient was located in the day room for her assessment and medication pass. The patient took her medication whole and was appropriate during interactions with this nurse. The patient was anxious for a short time about HS medication but after talking with this nurse the patient was calmed. The patient is currently sleeping in her room.
[2019-04-26 06:39] VITALS: BP 102/61
[2019-04-26] MEDS: CALCIUM CARB/VIT D3 500/200 TABLET PO SCH (08:50)
[2019-04-26] MEDS: MEMANTINE 10 MG TABLET. PO SCH ×2 (08:51→20:31)
[2019-04-26] MEDS: GLUCOSAMINE/CHOND 500/400MG CAPSULE PO SCH ×2 (08:51→20:30)
[2019-04-26] MEDS: FAMOTIDINE 20 MG TABLET PO SCH (08:51)
[2019-04-26] MEDS: DIVALPROEX 125 MG CAP.SPRINK PO SCH ×4 (08:51→20:29)
[2019-04-26] MEDS: MULTIVITAMIN with MINERAL TABLET. PO SCH (08:51)
[2019-04-26] MEDS: RIVASTIGMINE 9.5MG PATCH. TD SCH (08:51)
[2019-04-26] MEDS: OXYBUTYNIN CHLORIDE 5 MG TABLET PO SCH ×2 (08:52→20:31)
[2019-04-26] MEDS: amLODIPine BESYLATE 5 MG TABLET PO SCH (08:54)
[2019-04-26] MEDS: ASPIRIN 325 MG TABLET PO SCH (08:54)
[2019-04-26] MEDS: ATORVASTATIN CALCIUM 20 MG TABLET PO SCH (08:54)
[2019-04-26] MEDS: CHOLECALCIFEROL (VITAMIN D3) 1,000 UNIT TABLET PO SCH (08:55)
[2019-04-26] MEDS: LURASIDONE 40 MG TABLET. PO SCH ×2 (08:56→17:00)
[2019-04-26] MEDS: DRONABINOL 2.5 MG CAPSULE PO SCH (10:05)
--- NOTE | 2019-04-26 14:55 | NUR ---
SW attempted to contact pt dtr Eliseo to discuss discharge plans for the middle of next week. SELINA will try back again on Monday and look for a possible discharge of Monday/.
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
[2019-04-26 15:35] VITALS: BP 90/60
--- NOTE | 2019-04-26 19:47 | PN ---
DATE: 04/24/2019 PSYCHIATRIC PROGRESS NOTE This late entry 04/24/2019 covers the elements not covered in my initial note. SUBJECTIVE: I met with the patient in the evening of 04/24/2019. Per ROSE MARY Hernandez, the patient slept 6 hours previous night. She has been having a poor appetite and is afraid to eat, starving herself, somatic, spitting out her food at times and medications. I addressed this with her. She remains quite anxious. REVIEW OF SYSTEMS: Ambulation impaired, poor appetite, vague somatic symptoms. No CV, or pulmonary system symptoms on review. MENTAL STATUS EXAM: Reasonably oriented. Speech has some latency, coherent, at times pressured, repeatedly calling me to visit with her, which I did. Abstraction fair, computation impaired, language function intact. Mood and affect remains anxious, labile. LABORATORY DATA: Reviewed. IMPRESSION: Unchanged from initial note. PLAN: No change from initial note. We are increasing the Latuda, maintain the Depakote level is therapeutic. Continue Namenda, Exelon patch, Luvox, trazodone for now. MAN Hector AL MD DR: RENO/angelic JOB#: [id number] / [id number]
--- NOTE | 2019-04-26 19:49 | PN ---
DATE: 04/25/2019 PSYCHIATRIC PROGRESS NOTE This late entry April 24, covers elements not covered in my initial note. SUBJECTIVE: I met with the patient in the evening. The patient's daughter friend was to attend, but unavailable for the treatment team meeting. We discussed her progress, diagnosis, current medications and transition to [facility] when she is stable. Sleeping six and a half hours average. Appetite 50%. We will start her on Marinol 2.5 mg a day to stimulate her appetite. Her labs are BUN 22, creatinine 0.9. Fluids are being pushed, anxious, somatic. Compliant with medications. REVIEW OF SYSTEMS: Ambulation impaired with walker. No CV, , pulmonary, eye system symptoms on review. Appetite poor. MENTAL STATUS EXAM: Oriented to herself and situation. Speech coherent, rapid at times. Abstraction fair, computation impaired, language function intact, attention span short. Mood and affect labile. LABORATORY DATA: Reviewed. IMPRESSION: Unchanged from initial note. PLAN: No change from initial note. HECTOR AL MD DR: RENO/angelic JOB#: [id number] / [id number]
[2019-04-26] MEDS: MELATONIN 3 MG TABLET PO SCH (20:30)
[2019-04-26] MEDS: MIRTAZAPINE 15 MG TABLET PO SCH (20:30)
[2019-04-26] MEDS: traMADol 50 MG TABLET PO PRN (20:31)
--- NOTE | 2019-04-26 21:22 | PDOC ---
Exam Note: Osny Note: Please also refer to the separate dictated note~for this date of service dictated separately.~Patient seen individually. Discussed the patient with Nursing staff reviewed the chart.~Reviewed interim history and current functioning. Reviewed vital signs,~Labs/ Radiology~and current medications noted below. Continue current treatment with the changes noted in the dictated addendum note Assessment: Vital Signs/I&O: Vital Signs Date Time Temp Pulse Resp B/P (MAP) Pulse Ox O2 Delivery O2 Flow Rate FiO2 04/26/19 15:35 97.2 69 18 90/60 (70) 96 04/25/19 06:08 Room Air I & O 04/25/19 04/25/19 04/26/19 15:00 23:00 07:00 Intake Total 120 ml 120 ml 240 ml Balance 120 ml 120 ml 240 ml Current Medications: Meds: Current Medications Medications (Trade) Dose Ordered Sig/Mickey Route PRN Reason Start Time Stop Time Status Last Admin Dose Admin Dronabinol (Marinol) 2.5 mg DAILY PO 04/26/19 09:00 04/26/19 10:05 I have reviewed the current psychotropics carefully including drug interactions. Risk benefit ratio favors no change other than as noted in my dictated progress note. Diagnosis: Problems: (1) Major depressive disorder, recurrent episode (2) Mild cognitive disorder (3) Dementia, vascular, with depression (4) Bipolar disorder with depression (5) Major neurocognitive disorder HECTOR AL MD Apr 26, 2019 21:22
--- NOTE | 2019-04-26 22:00 | NUR ---
Patient is in the day room on assumption of care. She is anxious, confused, disorganized. Complained of generalized pain, so this database report writer brought her PRN Ultram with her HS meds. Initially she didn't want her pain medication, but took her HS meds and her PRN with some cueing. Compliant with assessments. No agitation. No delusions or hallucinations noted this shift. No further complaints of pain or discomfort. Denies SI.
[2019-04-27 06:33] VITALS: BP 107/62
[2019-04-27] MEDS: RIVASTIGMINE 9.5MG PATCH. TD SCH (08:25)
[2019-04-27] MEDS: ASPIRIN 325 MG TABLET PO SCH (08:25)
[2019-04-27] MEDS: MULTIVITAMIN with MINERAL TABLET. PO SCH (08:25)
[2019-04-27] MEDS: DIVALPROEX 125 MG CAP.SPRINK PO SCH ×4 (08:26→20:30)
[2019-04-27] MEDS: amLODIPine BESYLATE 5 MG TABLET PO SCH (08:26)
[2019-04-27] MEDS: DRONABINOL 2.5 MG CAPSULE PO SCH (08:26)
[2019-04-27] MEDS: FAMOTIDINE 20 MG TABLET PO SCH (08:26)
[2019-04-27] MEDS: GLUCOSAMINE/CHOND 500/400MG CAPSULE PO SCH ×2 (08:26→20:30)
[2019-04-27] MEDS: LURASIDONE 40 MG TABLET. PO SCH ×2 (08:26→17:16)
[2019-04-27] MEDS: CHOLECALCIFEROL (VITAMIN D3) 1,000 UNIT TABLET PO SCH (08:27)
[2019-04-27] MEDS: ATORVASTATIN CALCIUM 20 MG TABLET PO SCH (08:27)
[2019-04-27] MEDS: CALCIUM CARB/VIT D3 500/200 TABLET PO SCH (08:27)
[2019-04-27] MEDS: MEMANTINE 10 MG TABLET. PO SCH ×2 (08:27→20:29)
[2019-04-27] MEDS: OXYBUTYNIN CHLORIDE 5 MG TABLET PO SCH ×2 (08:27→20:30)
--- NOTE | 2019-04-27 13:34 | NUR ---
Nursing note: Pt in dining room for morning meds and assessment. Pt compliant with meds whole and cooperative with assessment. She continues to be anxious around meal times stating "I can't eat...see I'm dry heaving". Pt was encouraged to use her relaxation techniques to help ease her anxiety. Pt was noted to be burping and not dry heaving. She would occasionally take bites of food with much encouragement. Pt has been sitting quietly in the day room for most of the day. Will continue to monitor.
[2019-04-27 15:53] VITALS: BP 93/60
[2019-04-27] MEDS: MIRTAZAPINE 15 MG TABLET PO SCH (20:30)
[2019-04-27] MEDS: MELATONIN 3 MG TABLET PO SCH (20:30)
--- NOTE | 2019-04-27 21:15 | PDOC ---
Exam Note: Sony Note: Please also refer to the separate dictated note~for this date of service dictated separately.~Patient seen individually. Discussed the patient with Nursing staff reviewed the chart.~Reviewed interim history and current functioning. Reviewed vital signs,~Labs/ Radiology~and current medications noted below. Continue current treatment with the changes noted in the dictated addendum note Assessment: Vital Signs/I&O: Vital Signs Date Time Temp Pulse Resp B/P (MAP) Pulse Ox O2 Delivery O2 Flow Rate FiO2 04/27/19 15:53 97.8 74 16 93/60 (71) 98 04/25/19 06:08 Room Air I & O 04/26/19 04/26/19 04/27/19 15:00 23:00 07:00 Intake Total 480 ml 120 ml 240 ml Balance 480 ml 120 ml 240 ml Current Medications: I have reviewed the current psychotropics carefully including drug interactions. Risk benefit ratio favors no change other than as noted in my dictated progress note. Diagnosis: Problems: (1) Major depressive disorder, recurrent episode (2) Mild cognitive disorder (3) Dementia, vascular, with depression (4) Bipolar disorder with depression (5) Major neurocognitive disorder HECTOR AL MD Apr 27, 2019 21:15
--- NOTE | 2019-04-27 23:57 | NUR ---
Pt located in dayroom sitting calmly in her wheelchair. Pt initially resistive to medications stating they will make her too sleepy. Pt eventually took the medications and then immediately stated she needed to go to bed before she fell asleep in her wheelchair. Pt taken to bed where she is currently sleeping.
--- NOTE | 2019-04-28 06:20 | NUR ---
STATISTICAL GENETICIST informed this RN that pt did not void overnight. Bladder scan completed. Revealed <250cc. Will report to next shift to push fluids.
[2019-04-28 06:21] VITALS: BP 120/63
[2019-04-28] MEDS: CHOLECALCIFEROL (VITAMIN D3) 1,000 UNIT TABLET PO SCH (08:26)
[2019-04-28] MEDS: LURASIDONE 40 MG TABLET. PO SCH ×2 (08:26→17:17)
[2019-04-28] MEDS: ATORVASTATIN CALCIUM 20 MG TABLET PO SCH (08:27)
[2019-04-28] MEDS: GLUCOSAMINE/CHOND 500/400MG CAPSULE PO SCH ×2 (08:27→19:47)
[2019-04-28] MEDS: MULTIVITAMIN with MINERAL TABLET. PO SCH (08:27)
[2019-04-28] MEDS: DRONABINOL 2.5 MG CAPSULE PO SCH (08:27)
[2019-04-28] MEDS: MEMANTINE 10 MG TABLET. PO SCH ×2 (08:27→19:47)
[2019-04-28] MEDS: CALCIUM CARB/VIT D3 500/200 TABLET PO SCH (08:27)
[2019-04-28] MEDS: DIVALPROEX 125 MG CAP.SPRINK PO SCH ×4 (08:27→19:47)
[2019-04-28] MEDS: FAMOTIDINE 20 MG TABLET PO SCH (08:27)
[2019-04-28] MEDS: ASPIRIN 325 MG TABLET PO SCH (08:28)
[2019-04-28] MEDS: amLODIPine BESYLATE 5 MG TABLET PO SCH (08:28)
[2019-04-28] MEDS: OXYBUTYNIN CHLORIDE 5 MG TABLET PO SCH ×2 (08:28→19:47)
[2019-04-28] MEDS: RIVASTIGMINE 9.5MG PATCH. TD SCH (08:29)
--- NOTE | 2019-04-28 14:28 | NUR ---
Patient is alert. Pt refused breakfast this morning, ate a few bites at lunch. Pt reports getting nauseated after eating therefore does not want to eat. Pt knows she is supposed to be drinking more fluids but states it is hard for her to. Pt did urinate this morning per MANA[employer]. Pt denies pain. Dressing removed from left arm without any issues and left open to air. Pt is compliant with medications and cares. Is less anxious this morning. WCTM.
[2019-04-28 15:29] VITALS: BP 102/68
[2019-04-28] MEDS: ONDANSETRON ODT 4 MG TAB.RAPDIS PO PRN (17:20)
[2019-04-28] MEDS: MIRTAZAPINE 15 MG TABLET PO SCH (19:47)
[2019-04-28] MEDS: MELATONIN 3 MG TABLET PO SCH (19:47)
--- NOTE | 2019-04-28 21:55 | PN ---
DATE: 04/26/2019 PSYCHIATRIC PROGRESS NOTE This late entry 04/26/2019 covers the elements not covered in my initial note. SUBJECTIVE: I met with the patient in the evening of 04/26/2019. Per ROSE MARY Oneal, the patient slept 7 hours previous night. She has a poor appetite, started on Marinol per Dr. Donovan. Labs to be checked on the 04/29/2019. REVIEW OF SYSTEMS: Ambulation impaired with walker. Poor appetite. No CV, , pulmonary, eye system symptoms on review. She still complains of being anxious. MENTAL STATUS EXAM: Reasonably oriented. Speech is coherent, has some latency. Abstraction fair, computation impaired, language function intact. Mood and affect somewhat anxious, labile. LABORATORY DATA: Reviewed. IMPRESSION: Unchanged from initial note. PLAN: No change from initial note. MAN Hector AL MD DR: RENO/angelic JOB#: [id number] / [id number]
--- NOTE | 2019-04-28 21:59 | PN ---
DATE: 04/27/2019 PSYCHIATRIC PROGRESS NOTE This late entry 04/27/2019 covers elements not covered in my initial note. SUBJECTIVE: I met with the patient evening of 04/27/2019. The patient slept 7-1/4 hours previous night per ROSE MARY Rowe. She is started on Marinol. Her daughter visited her this evening, she did well during the visit, but then very anxious after the daughter left. Again, complaining of being sleepy after her daytime medications. REVIEW OF SYSTEMS: Ambulation impaired, with walker. No CV, , pulmonary, eye system symptoms on review. MENTAL STATUS EXAM: Oriented to herself and situation. Speech has some latency, coherent. Abstraction fair, computation impaired, language function intact. She came back to me a couple of times on rounds, had some more questions about being tired during the day and I addressed this with her. No suicidal or homicidal ideation. LABORATORY DATA: Reviewed. IMPRESSION: Unchanged from initial note. PLAN: No change from initial note. HECTOR AL MD DR: RENO/angelic JOB#: [id number] / [id number]
--- NOTE | 2019-04-28 22:34 | PDOC ---
Exam Note: Sony Note: Please also refer to the separate dictated note~for this date of service dictated separately.~Patient seen individually. Discussed the patient with Nursing staff reviewed the chart.~Reviewed interim history and current functioning. Reviewed vital signs,~Labs/ Radiology~and current medications noted below. Continue current treatment with the changes noted in the dictated addendum note Assessment: Vital Signs/I&O: Vital Signs Date Time Temp Pulse Resp B/P (MAP) Pulse Ox O2 Delivery O2 Flow Rate FiO2 04/28/19 15:29 97.4 75 18 102/68 (79) 96 04/25/19 06:08 Room Air I & O 04/27/19 04/27/19 04/28/19 15:00 23:00 07:00 Intake Total 340 ml 480 ml 240 ml Balance 340 ml 480 ml 240 ml Current Medications: I have reviewed the current psychotropics carefully including drug interactions. Risk benefit ratio favors no change other than as noted in my dictated progress note. Diagnosis: Problems: (1) Major depressive disorder, recurrent episode (2) Mild cognitive disorder (3) Dementia, vascular, with depression (4) Bipolar disorder with depression (5) Major neurocognitive disorder HECTOR AL MD Apr 28, 2019 22:34
--- NOTE | 2019-04-28 22:58 | NUR ---
Pt anxious this evening. Pt resistive with HS medications stating they will make her too tired tomorrow and she is too nauseas to take them. Medications taken with much encouragement. After swallowing the last pill, pt started coughing/gagging, appearing as if she was trying to induce vomiting. Pt encouraged to take slow, deep breaths and coughing stopped. Pt did continue to holler out from bed for awhile, asking for her door to be open, and then closed and then open again. Pt eventually went to sleep and is currently sleeping in bed.
[2019-04-29 06:18] VITALS: BP 137/77
[2019-04-29] MEDS: MULTIVITAMIN with MINERAL TABLET. PO SCH (08:35)
[2019-04-29] MEDS: DRONABINOL 2.5 MG CAPSULE PO SCH (08:36)
[2019-04-29] MEDS: GLUCOSAMINE/CHOND 500/400MG CAPSULE PO SCH ×2 (08:36→20:53)
[2019-04-29] MEDS: LURASIDONE 40 MG TABLET. PO SCH ×2 (08:36→20:53)
[2019-04-29] MEDS: ASPIRIN 325 MG TABLET PO SCH (08:36)
[2019-04-29] MEDS: OXYBUTYNIN CHLORIDE 5 MG TABLET PO SCH ×2 (08:36→20:53)
[2019-04-29] MEDS: MEMANTINE 10 MG TABLET. PO SCH ×2 (08:36→20:53)
[2019-04-29] MEDS: CHOLECALCIFEROL (VITAMIN D3) 1,000 UNIT TABLET PO SCH (08:36)
[2019-04-29] MEDS: FAMOTIDINE 20 MG TABLET PO SCH (08:36)
[2019-04-29] MEDS: ATORVASTATIN CALCIUM 20 MG TABLET PO SCH (08:36)
[2019-04-29] MEDS: CALCIUM CARB/VIT D3 500/200 TABLET PO SCH (08:37)
[2019-04-29] MEDS: RIVASTIGMINE 9.5MG PATCH. TD SCH (08:37)
[2019-04-29] MEDS: DIVALPROEX 125 MG CAP.SPRINK PO SCH ×4 (08:37→20:53)
[2019-04-29] MEDS: amLODIPine BESYLATE 5 MG TABLET PO SCH (08:37)
--- NOTE | 2019-04-29 11:48 | NUR ---
Nursing note: Pt in dining room this morning for meds and assessment. Pt was compliant with her meds and cooperative with assessment. She did have increased anxiety this morning and was worried she was going to vomit. Pt stated multiple times that she was dry heaving, but appeared to just be forcing herself to burp. Pt was encouraged to take slow deep breaths to help ease the anxiety. Pt was more relaxed afterwards and continued to eat her yogurt. Pt has been sleeping in the day room this morning. Will continue to monitor.
[2019-04-29 16:11] VITALS: BP 121/73
--- NOTE | 2019-04-29 17:00 | NUR ---
SELINA met with pt dtr Eliseo, who had not heard from [facility] yet. SELINA informed Eliseo that she just received an email and it appears that pt is only able to use 10 of her [facility] benefit days and can only be applied to Memory Care. SELINA explained that with pt behaviors, her confusion and some of her anxiety/panic would be better suited for memory care as they have more staffing, the consistency of a schedule and techniques that aren't typically utilized on [facility]. Pt dtr understood and admits to the fact that a lot of it has to deal with her own inability to deal with her mother's diagnosis. Eliseo has made an appt with a neurologist (05/11) for pt to see as she is mostly interested in what stage of Dementia pt is in; she feels that with that testing, it would better help guide her on which is the best place for pt to be. SELINA and Eliseo discussed the most important piece at this time is making sure that her needs are being met at her current level and then re-assessing needs/cares at the time of deterioration. Pt dtr did not feel that the [facility] in [place], would be able to meet her needs as they do not have a lot vocal patients. She felt that her mother was still vocal and liked quite a few activities still and wanted the placement to reflect that. SELINA encouraged pt dtr to be open to other [facility] options, as they may not be close to where pt dtr lives, but they are memory care unit that can take younger people and have a wide variety of individuals on the unit. SELINA gave her resources for [facility] and [facility]; she will plan to reach out to them and see if they are a better option for pt and will get back to SELINA.
--- NOTE | 2019-04-29 20:31 | PN ---
DATE: 04/28/2019 This late entry 04/28/2019 covers elements not covered in my initial note. SUBJECTIVE: I met with the patient in evening of 04/28/2019. The patient slept 5-3/4 hours previous night per ROSE MARY Rowe. She has been anxious, off and on. Refused to eat due to complaints of nausea, gagging with medications. REVIEW OF SYSTEMS: Ambulation impaired with walker. No CV, , pulmonary, eye, ENT system symptoms on review other than the GI symptoms. MENTAL STATUS EXAM: Oriented to herself and situation. Speech has some latency, coherent. Abstraction fair, computation impaired, language function intact, attention span short. Mood and affect somewhat withdrawn. LABORATORY DATA: Reviewed. IMPRESSION: Unchanged from initial note. PLAN: No change from initial note. MAN Hector AL MD DR: RENO/angelic JOB#: [id number] / [id number]
[2019-04-29] MEDS: MIRTAZAPINE 15 MG TABLET PO SCH (20:53)
[2019-04-29] MEDS: MELATONIN 3 MG TABLET PO SCH (20:54)
--- NOTE | 2019-04-29 21:42 | PDOC ---
Exam Note: Sony Note: Please also refer to the separate dictated note~for this date of service dictated separately.~Patient seen individually. Discussed the patient with Nursing staff reviewed the chart.~Reviewed interim history and current functioning. Reviewed vital signs,~Labs/ Radiology~and current medications noted below. Continue current treatment with the changes noted in the dictated addendum note Assessment: Vital Signs/I&O: Vital Signs Date Time Temp Pulse Resp B/P (MAP) Pulse Ox O2 Delivery O2 Flow Rate FiO2 04/29/19 16:11 98.4 55 18 121/73 (89) 98 04/25/19 06:08 Room Air I & O 04/28/19 04/28/19 04/29/19 15:00 23:00 07:00 Intake Total 480 ml 360 ml 120 ml Balance 480 ml 360 ml 120 ml Current Medications: Meds: Current Medications Medications (Trade) Dose Ordered Sig/Mickey Route PRN Reason Start Time Stop Time Status Last Admin Dose Admin Lurasidone HCl (Latuda) 20 mg DAILY PO 04/29/19 09:00 04/29/19 08:36 Lurasidone HCl (Latuda) 40 mg QHS PO 04/29/19 21:00 04/29/19 20:53 I have reviewed the current psychotropics carefully including drug interactions. Risk benefit ratio favors no change other than as noted in my dictated progress note. Diagnosis: Problems: (1) Major depressive disorder, recurrent episode (2) Mild cognitive disorder (3) Dementia, vascular, with depression (4) Bipolar disorder with depression (5) Major neurocognitive disorder HECTOR AL MD Apr 29, 2019 21:42
--- NOTE | 2019-04-29 23:19 | NUR ---
Pt located in the dayroom this evening. Pt anxious and resistive to medications, stating they are going to make her too sleepy. Pt compliant with much encouragement. Immediately after taking the medications, pt started burping and said she was going to throw up. Pt encouraged to take deep breaths and was able to calm down. Pt taken to bed and is currently sleeping.
[2019-04-30 06:22] VITALS: BP 143/83
[2019-04-30] MEDS: LURASIDONE 40 MG TABLET. PO SCH ×2 (09:11→20:33)
[2019-04-30] MEDS: ATORVASTATIN CALCIUM 20 MG TABLET PO SCH (09:11)
[2019-04-30] MEDS: CALCIUM CARB/VIT D3 500/200 TABLET PO SCH (09:11)
[2019-04-30] MEDS: CHOLECALCIFEROL (VITAMIN D3) 1,000 UNIT TABLET PO SCH (09:11)
[2019-04-30] MEDS: GLUCOSAMINE/CHOND 500/400MG CAPSULE PO SCH ×2 (09:11→20:33)
[2019-04-30] MEDS: ASPIRIN 325 MG TABLET PO SCH (09:11)
[2019-04-30] MEDS: MULTIVITAMIN with MINERAL TABLET. PO SCH (09:11)
[2019-04-30] MEDS: FAMOTIDINE 20 MG TABLET PO SCH (09:11)
[2019-04-30] MEDS: RIVASTIGMINE 9.5MG PATCH. TD SCH (09:12)
[2019-04-30] MEDS: OXYBUTYNIN CHLORIDE 5 MG TABLET PO SCH ×2 (09:12→20:33)
[2019-04-30] MEDS: DRONABINOL 2.5 MG CAPSULE PO SCH ×3 (09:12→17:19)
[2019-04-30] MEDS: MEMANTINE 10 MG TABLET. PO SCH ×2 (09:12→20:32)
[2019-04-30] MEDS: amLODIPine BESYLATE 5 MG TABLET PO SCH (09:12)
[2019-04-30 16:03] VITALS: BP 132/80
--- NOTE | 2019-04-30 17:10 | NUR ---
SELINA met with pt dtr Eliseo who reports that she spoke with Max today and Gosia will come out again to assess pt for services. Eliseo is fine with having pt maintain at the [facility] and is hopeful that pt can go soon. Eliseo did inform SELINA that medication changes were made within the last 24 hours that she met with SELINA. With medication changes being made, SELINA will have Eliseo participate in tx team so that she can go over the changes and hear the ELOS.
[2019-04-30] MEDS: METOCLOPRAMIDE 5 MG TABLET PO SCH ×2 (17:19→20:33)
--- NOTE | 2019-04-30 17:48 | NUR ---
Nursing note: Pt in her room for morning meds and assessment. She was med compliant and cooperative with assessment. Pt continues to have increased anxiety surrounding meal times, causing nausea. Pt has remained in the day room for most of the day and has participated in group activities. Will continue to monitor.
--- NOTE | 2019-04-30 20:04 | PN ---
DATE: 04/29/2019 This late entry 04/29/2019 covers elements not covered in my initial note. SUBJECTIVE: I met with the patient evening of 04/29/2019. Per ROSE MARY Alexander, the patient slept 7-3/4 hours previous night. She has been anxious at mealtimes having dry heaving. Appetite remains poor, little better than the day before. REVIEW OF SYSTEMS: Ambulation impaired with walker. No CV, , pulmonary, eye system symptoms on review. MENTAL STATUS EXAM: Reasonably oriented to herself and situation. Speech has some latency, coherent. Abstraction fair, computation impaired, language function intact, attention span short. Mood is somewhat anxious, labile. Affect is mood congruent. No suicidal or homicidal ideation. No clear psychotic symptoms. LABORATORY DATA: Reviewed. IMPRESSION: Unchanged from initial note. PLAN: Increase the Marinol from 2.5 mg a day to 2.5 mg 1 hour before lunch and dinner. Continue rest, unchanged for now from initial note. HECTOR AL MD DR: RENO/angelic JOB#: [id number] / [id number]
[2019-04-30] MEDS: MIRTAZAPINE 15 MG TABLET PO SCH (20:33)
[2019-04-30] MEDS: MELATONIN 3 MG TABLET PO SCH (20:33)
[2019-04-30] MEDS ORDERED: DIVALPROEX ER 500 MG TAB.ER.24H PO SCH (21:00)
--- NOTE | 2019-04-30 21:38 | PDOC ---
Exam Note: Sony Note: Please also refer to the separate dictated note~for this date of service dictated separately.~Patient seen individually. Discussed the patient with Nursing staff reviewed the chart.~Reviewed interim history and current functioning. Reviewed vital signs,~Labs/ Radiology~and current medications noted below. Continue current treatment with the changes noted in the dictated addendum note Assessment: Vital Signs/I&O: Vital Signs Date Time Temp Pulse Resp B/P (MAP) Pulse Ox O2 Delivery O2 Flow Rate FiO2 04/30/19 16:03 97.6 65 18 132/80 (97) 100 04/25/19 06:08 Room Air I & O 04/29/19 04/29/19 04/30/19 15:00 23:00 07:00 Intake Total 480 ml 360 ml Balance 480 ml 360 ml Current Medications: Meds: Current Medications Medications (Trade) Dose Ordered Sig/Mickey Route PRN Reason Start Time Stop Time Status Last Admin Dose Admin Dronabinol (Marinol) 2.5 mg 0700,1100,1600 PO 04/30/19 07:00 04/30/19 17:19 Metoclopramide HCl (Reglan) 5 mg QIDACHS PO 04/30/19 16:30 04/30/19 20:33 I have reviewed the current psychotropics carefully including drug interactions. Risk benefit ratio favors no change other than as noted in my dictated progress note. Diagnosis: Problems: (1) Major depressive disorder, recurrent episode (2) Mild cognitive disorder (3) Dementia, vascular, with depression (4) Bipolar disorder with depression (5) Major neurocognitive disorder HECTOR AL MD Apr 30, 2019 21:38
--- NOTE | 2019-04-30 23:39 | NUR ---
Pt sitting calmly in the dayroom this evening. Pt appears much less anxious and was compliant with whole medications without any resistance. Pt did not mention anything about the medications making her sleepy. Pt stated that she had a great day and appeared very pleased that she had an appetite today and was able to eat without getting nauseas. This RN attempted to administer MOM to pt d/t the fact pt hasn't had a reported BM for 4 days. Pt asked to wait one more day before receiving MOM since she hasn't been eating much the last few days. This RN will pass along to dayshift.
[2019-05-01] MEDS: DRONABINOL 2.5 MG CAPSULE PO SCH ×3 (06:14→17:43)
[2019-05-01 06:22] VITALS: BP 111/66
[2019-05-01] MEDS: OXYBUTYNIN CHLORIDE 5 MG TABLET PO SCH ×2 (08:56→21:27)
[2019-05-01] MEDS: CHOLECALCIFEROL (VITAMIN D3) 1,000 UNIT TABLET PO SCH (08:56)
[2019-05-01] MEDS: METOCLOPRAMIDE 5 MG TABLET PO SCH ×4 (08:57→21:28)
[2019-05-01] MEDS: GLUCOSAMINE/CHOND 500/400MG CAPSULE PO SCH ×2 (08:57→21:28)
[2019-05-01] MEDS: RIVASTIGMINE 9.5MG PATCH. TD SCH (08:57)
[2019-05-01] MEDS: ATORVASTATIN CALCIUM 20 MG TABLET PO SCH (08:57)
[2019-05-01] MEDS: FAMOTIDINE 20 MG TABLET PO SCH (08:57)
[2019-05-01] MEDS: MEMANTINE 10 MG TABLET. PO SCH ×2 (08:57→21:28)
[2019-05-01] MEDS: MULTIVITAMIN with MINERAL TABLET. PO SCH (08:57)
[2019-05-01] MEDS: CALCIUM CARB/VIT D3 500/200 TABLET PO SCH (08:57)
[2019-05-01] MEDS: amLODIPine BESYLATE 5 MG TABLET PO SCH (08:57)
[2019-05-01] MEDS: LURASIDONE 40 MG TABLET. PO SCH ×2 (08:58→21:28)
[2019-05-01] MEDS: DOCUSATE SODIUM 100 MG CAPSULE PO SCH (09:05)
[2019-05-01] MEDS: ASPIRIN ENTERIC COATED 325 MG TABLET.DR. PO SCH (09:06)
--- NOTE | 2019-05-01 09:33 | PN ---
DATE: 04/30/2019 This late entry 04/30/2019 covers elements not covered in my initial note. SUBJECTIVE: I met with the patient in the evening. Per ROSE MARY Alexander, the patient slept 6-1/4 hours previous night. She has been anxious at meal times, ate no breakfast, ate 10% of lunch and little bit of supper. Aspirin was changed to the enteric coated as she may be having GI symptoms from the regular aspirin. Labs to be checked on the . REVIEW OF SYSTEMS: Ambulation impaired with walker. No CV, , pulmonary, eye system symptoms on review. MENTAL STATUS EXAM: Oriented to herself and situation. Speech has some latency, coherent. Abstraction fair, computation impaired, language function intact, attention span short. Mood and affect somewhat anxious, dysphoric, labile at times. No suicidal or homicidal ideation. LABORATORY DATA: Reviewed. IMPRESSION: Bipolar disorder, mixed; anxiety disorder, unspecified; mild cognitive impairment. PLAN: On a trial basis, we will stop the Depakote since she complains of daytime sedation and see how she does. Continue rest of the psychotropics unchanged for now. HECTOR AL MD DR: RENO/angelic JOB#: [id number] / [id number]
--- NOTE | 2019-05-01 10:31 | NUR ---
Patient is located in day room at time of assessment and medications. Patient is participating in group. Patient is compliant with medications whole with water, as with assessment. Patient is appropriate and in good spirits. Patient reports no pain at this time. Patient is resting in day room visiting with peers and staff at this time. Will continue to monitor.
--- NOTE | 2019-05-01 14:11 | NUR ---
SELINA contacted Gosia at [facility], who came and did an assessment on pt this AM. Gosia reports that they are still able to maintain pt at their [place] location; however, she just needs to know a discharge time frame to get everything prepared. At this time, SELINA believes that pt will be able to discharge next . But SELINA will follow up with Gosia after tx team; furthermore, Gosia requested that an updated med list be sent, once those medication changes have been made.
[2019-05-01 15:38] VITALS: BP 101/65
[2019-05-01] MEDS: MELATONIN 3 MG TABLET PO SCH (21:28)
[2019-05-01] MEDS: MIRTAZAPINE 15 MG TABLET PO SCH (21:28)
--- NOTE | 2019-05-01 21:50 | PDOC ---
Exam Note: Sony Note: Please also refer to the separate dictated note~for this date of service dictated separately.~Patient seen individually. Discussed the patient with Nursing staff reviewed the chart.~Reviewed interim history and current functioning. Reviewed vital signs,~Labs/ Radiology~and current medications noted below. Continue current treatment with the changes noted in the dictated addendum note Assessment: Vital Signs/I&O: Vital Signs Date Time Temp Pulse Resp B/P (MAP) Pulse Ox O2 Delivery O2 Flow Rate FiO2 05/01/19 15:38 97.9 59 16 101/65 (77) 97 I & O 04/30/19 04/30/19 05/01/19 15:00 23:00 07:00 Intake Total 240 ml 360 ml Balance 240 ml 360 ml Current Medications: Meds: Current Medications Medications (Trade) Dose Ordered Sig/Mickey Route PRN Reason Start Time Stop Time Status Last Admin Dose Admin Aspirin (Aspirin Enteric Coated) 325 mg DAILYWBKFT PO 05/01/19 08:00 05/01/19 09:06 Docusate Sodium (Colace) 100 mg DAILY PO 05/01/19 09:00 05/01/19 09:05 I have reviewed the current psychotropics carefully including drug interactions. Risk benefit ratio favors no change other than as noted in my dictated progress note. Diagnosis: Problems: (1) Major depressive disorder, recurrent episode (2) Mild cognitive disorder (3) Dementia, vascular, with depression (4) Bipolar disorder with depression (5) Major neurocognitive disorder HECTOR AL MD May 01, 2019 21:50
[2019-05-01] MEDS: traZODone 50 MG TABLET. PO PRN (22:38)
--- NOTE | 2019-05-02 01:56 | NUR ---
Nursing Note The patient was located in the day room for her assessment and medication pass. The patient was pleasant and interactive while talking to this nurse in the day room. The patient became anxious while laying in bed and requested PRN Trazodone which she received @ per PRN order. The patient is currently sleeping in her room.
[2019-05-02] MEDS: DRONABINOL 2.5 MG CAPSULE PO SCH ×3 (05:55→17:16)
[2019-05-02 07:02] VITALS: BP 124/73
[2019-05-02] MEDS: FAMOTIDINE 20 MG TABLET PO SCH (09:15)
[2019-05-02] MEDS: OXYBUTYNIN CHLORIDE 5 MG TABLET PO SCH ×2 (09:15→20:35)
[2019-05-02] MEDS: CALCIUM CARB/VIT D3 500/200 TABLET PO SCH (09:15)
[2019-05-02] MEDS: MULTIVITAMIN with MINERAL TABLET. PO SCH (09:15)
[2019-05-02] MEDS: DOCUSATE SODIUM 100 MG CAPSULE PO SCH ×2 (09:15→20:34)
[2019-05-02] MEDS: GLUCOSAMINE/CHOND 500/400MG CAPSULE PO SCH ×2 (09:15→20:35)
[2019-05-02] MEDS: METOCLOPRAMIDE 5 MG TABLET PO SCH ×4 (09:16→20:34)
[2019-05-02] MEDS: LURASIDONE 40 MG TABLET. PO SCH ×2 (09:16→20:40)
[2019-05-02] MEDS: ATORVASTATIN CALCIUM 20 MG TABLET PO SCH (09:16)
[2019-05-02] MEDS: ASPIRIN ENTERIC COATED 325 MG TABLET.DR. PO SCH (09:16)
[2019-05-02] MEDS: MEMANTINE 10 MG TABLET. PO SCH ×2 (09:16→20:35)
[2019-05-02] MEDS: CHOLECALCIFEROL (VITAMIN D3) 1,000 UNIT TABLET PO SCH (09:16)
[2019-05-02] MEDS: amLODIPine BESYLATE 5 MG TABLET PO SCH (09:17)
[2019-05-02] MEDS: RIVASTIGMINE 9.5MG PATCH. TD SCH (09:17)
--- NOTE | 2019-05-02 10:40 | NUR ---
WEEKLY ACTIVITY THERAPY NOTE Date of Admission: 03/20/2018 Date of AT Assessment: 03/23/2019 Goal aimed: to reduce stress and increase engagement Initial Goal: Pt. will participate in at least five Activity Therapy groups per week. Goal changed 04/04: Pt. 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
--- NOTE | 2019-05-02 12:27 | NUR ---
Nursing note: Pt in her room for morning meds and assessment. Pt med compliant and cooperative with her assessment. Pt was given boost to drink with her meds since she slept through breakfast. She spent the morning in the day room and fell asleep on the couch. Pt is currently in the dining room for lunch. She has had increased anxiety during this meal and complains of "dry heaving". Pt has been encouraged to work on her relaxation techniques, which has helped her relax. Will continue to monitor.
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
--- NOTE | 2019-05-02 14:50 | NUR ---
WEEKLY NOTE: Pt dtr, Eliseo, participated in tx team via telephone. Pt is eating 25-50% of meals and sleeping 6.25 hours on average. Pt does sit in the day room and participates in most groups as best as she can. Pt dtr was concerned that last night pt appeared to have slurred speech. Pt did have her Depakote stopped in order to increase the Latuda and have her appetite increased by adding Marinol. Pt does appear across the board less anxious and is fully compliant with medications and cares. At this time, pt can look to discharge to [facility] in [facility] early next week. SELINA will continue to work with pt dtr and the facility re: discharge plans and car
[2019-05-02 16:23] VITALS: BP 104/63
[2019-05-02] MEDS ORDERED: MAGNESIUM CITRATE 296 ML SOLUTION. PO PRN (19:00)
[2019-05-02] MEDS: MIRTAZAPINE 15 MG TABLET PO SCH (20:35)
[2019-05-02] MEDS: MELATONIN 3 MG TABLET PO SCH (20:35)
--- NOTE | 2019-05-02 21:43 | PDOC ---
Exam Note: Sony Note: Please also refer to the separate dictated note~for this date of service dictated separately.~Patient seen individually. Discussed the patient with Nursing staff reviewed the chart.~Reviewed interim history and current functioning. Reviewed vital signs,~Labs/ Radiology~and current medications noted below. Continue current treatment with the changes noted in the dictated addendum note Assessment: Vital Signs/I&O: Vital Signs Date Time Temp Pulse Resp B/P (MAP) Pulse Ox O2 Delivery O2 Flow Rate FiO2 05/02/19 16:23 97.6 85 19 104/63 (77) 96 I & O 05/01/19 05/01/19 05/02/19 15:00 23:00 07:00 Intake Total 240 ml 660 ml Balance 240 ml 660 ml Current Medications: Meds: Current Medications Medications (Trade) Dose Ordered Sig/Mickey Route PRN Reason Start Time Stop Time Status Last Admin Dose Admin Docusate Sodium (Colace) 100 mg BID PO 05/02/19 21:00 05/02/19 20:34 I have reviewed the current psychotropics carefully including drug interactions. Risk benefit ratio favors no change other than as noted in my dictated progress note. Diagnosis: Problems: (1) Major depressive disorder, recurrent episode (2) Mild cognitive disorder (3) Dementia, vascular, with depression (4) Bipolar disorder with depression (5) Major neurocognitive disorder HECTOR AL MD May 02, 2019 21:43
[2019-05-03 06:00] VITALS: BP 109/65
[2019-05-03] MEDS: DRONABINOL 2.5 MG CAPSULE PO SCH ×3 (06:14→17:14)
[2019-05-03 07:26] LABS: BASO % 1 % (0-3); EOS # 0.3 x10^3/uL (0.0-0.7); EOS % 4 % (0-3); HEMATOCRIT 31.8 % (36.0-47.0); HEMOGLOBIN 10.7 g/dL (12.0-15.5); LYMPH # 0.7 x10^3/uL (1.0-4.8); LYMPH % 10 % (24-48); MEAN CORPUSCULAR HEMOGLOBIN 33 pg (25-35); MEAN CORPUSCULAR HGB CONC 34 g/dL (31-37); MEAN CORPUSCULAR VOLUME 98 fL (79-100); MONO # 0.9 x10^3/uL (0.0-1.1); MONO % 12 % (0-9); NEUT # 5.2 x10^3uL (1.8-7.7); NEUT % 73 % (31-73); PLATELET COUNT 157 x10^3/uL (140-400); RED BLOOD COUNT 3.26 x10^6/uL (3.50-5.40); WHITE BLOOD COUNT 7.1 x10^3/uL (4.0-11.0)
[2019-05-03 07:41] LABS: ALBUMIN 2.9 g/dL (3.4-5.0); ALBUMIN/GLOBULIN RATIO 0.9 (1.0-1.7); CALCIUM 8.9 mg/dL (8.5-10.1); CREATININE 0.9 mg/dL (0.6-1.0); GFR 59.1; POTASSIUM 3.4 mmol/L (3.5-5.1); TOTAL BILIRUBIN 0.3 mg/dL (0.2-1.0)
[2019-05-03] MEDS: POLYETHYLENE GLYCOL 3350 17 GM PACKET. PO SCH (09:24)
[2019-05-03] MEDS: LURASIDONE 40 MG TABLET. PO SCH ×2 (09:25→20:32)
[2019-05-03] MEDS: DOCUSATE SODIUM 100 MG CAPSULE PO SCH ×2 (09:26→20:34)
[2019-05-03] MEDS: FAMOTIDINE 20 MG TABLET PO SCH (09:26)
[2019-05-03] MEDS: RIVASTIGMINE 9.5MG PATCH. TD SCH (09:26)
[2019-05-03] MEDS: METOCLOPRAMIDE 5 MG TABLET PO SCH ×4 (09:26→20:33)
[2019-05-03] MEDS: CHOLECALCIFEROL (VITAMIN D3) 1,000 UNIT TABLET PO SCH (09:27)
[2019-05-03] MEDS: ATORVASTATIN CALCIUM 20 MG TABLET PO SCH (09:27)
[2019-05-03] MEDS: MEMANTINE 10 MG TABLET. PO SCH ×2 (09:27→20:32)
[2019-05-03] MEDS: MULTIVITAMIN with MINERAL TABLET. PO SCH (09:27)
[2019-05-03] MEDS: ASPIRIN ENTERIC COATED 325 MG TABLET.DR. PO SCH (09:28)
[2019-05-03] MEDS: OXYBUTYNIN CHLORIDE 5 MG TABLET PO SCH ×2 (09:28→20:31)
[2019-05-03] MEDS: CALCIUM CARB/VIT D3 500/200 TABLET PO SCH (09:28)
[2019-05-03] MEDS: GLUCOSAMINE/CHOND 500/400MG CAPSULE PO SCH ×2 (09:28→20:33)
[2019-05-03] MEDS: amLODIPine BESYLATE 5 MG TABLET PO SCH (09:28)
[2019-05-03 15:44] VITALS: BP 105/68
--- NOTE | 2019-05-03 16:47 | NUR ---
Pt in the day room for morning meds and assessment. Pt participating in group activity. Pt was compliant with cares, interactive with staff, anxious at times especially when eating, worried that shes going to get sick.
--- NOTE | 2019-05-03 20:32 | PN ---
DATE: 05/01/2019 PSYCHIATRIC PROGRESS NOTE This late entry April 30, covers elements not covered in my initial note. SUBJECTIVE: I met with the patient in the evening. Per ROSE MARY Mandujano, the patient slept 6-1/4 hours previous night. She had no breakfast, 50% of lunch and appetite is little better on the Marinol. Depakote was discontinued. REVIEW OF SYSTEMS: Ambulation impaired with walker. No CV, , pulmonary, eye system symptoms on review. She has vague somatic symptoms. MENTAL STATUS EXAM: Oriented to herself and situation. Speech is coherent, abstraction fair, computation impaired, language function intact, attention span short. Mood and affect remain somewhat anxious, labile, somewhat tearful at times in the evening as I met with her. LABORATORY DATA: Reviewed. IMPRESSION: Unchanged from initial note. PLAN: No change from initial note. MAN Hector AL MD DR: RENO/angelic JOB#: [id number] / [id number]
[2019-05-03] MEDS: MIRTAZAPINE 15 MG TABLET PO SCH (20:33)
[2019-05-03] MEDS: MELATONIN 3 MG TABLET PO SCH (20:34)
--- NOTE | 2019-05-03 21:29 | PDOC ---
Exam Note: Sony Note: Please also refer to the separate dictated note~for this date of service dictated separately.~Patient seen individually. Discussed the patient with Nursing staff reviewed the chart.~Reviewed interim history and current functioning. Reviewed vital signs,~Labs/ Radiology~and current medications noted below. Continue current treatment with the changes noted in the dictated addendum note Assessment: Vital Signs/I&O: Vital Signs Date Time Temp Pulse Resp B/P (MAP) Pulse Ox O2 Delivery O2 Flow Rate FiO2 05/03/19 15:44 97.8 62 16 105/68 (80) 93 I & O 05/02/19 05/02/19 05/03/19 15:00 23:00 07:00 Intake Total 240 ml 720 ml Balance 240 ml 720 ml Labs: Laboratory Tests Test 05/03/19 06:50 White Blood Count 7.1 x10^3/uL (4.0-11.0) Red Blood Count 3.26 x10^6/uL (3.50-5.40) L Hemoglobin 10.7 g/dL (12.0-15.5) L Hematocrit 31.8 % (36.0-47.0) L Mean Corpuscular Volume 98 fL (79-100) Mean Corpuscular Hemoglobin 33 pg (25-35) Mean Corpuscular Hemoglobin Concent 34 g/dL (31-37) Red Cell Distribution Width 15.0 % (11.5-14.5) H Platelet Count 157 x10^3/uL (140-400) Neutrophils (%) (Auto) 73 % (31-73) Lymphocytes (%) (Auto) 10 % (24-48) L Monocytes (%) (Auto) 12 % (0-9) H Eosinophils (%) (Auto) 4 % (0-3) H Basophils (%) (Auto) 1 % (0-3) Neutrophils # (Auto) 5.2 x10^3uL (1.8-7.7) Lymphocytes # (Auto) 0.7 x10^3/uL (1.0-4.8) L Monocytes # (Auto) 0.9 x10^3/uL (0.0-1.1) Eosinophils # (Auto) 0.3 x10^3/uL (0.0-0.7) Basophils # (Auto) 0.0 x10^3/uL (0.0-0.2) Sodium Level 149 mmol/L (136-145) H Potassium Level 3.4 mmol/L (3.5-5.1) L Chloride Level 109 mmol/L (98-107) H Carbon Dioxide Level 34 mmol/L (21-32) H Anion Gap 6 (6-14) Blood Urea Nitrogen 29 mg/dL (7-20) H Creatinine 0.9 mg/dL (0.6-1.0) Estimated GFR (Cockcroft-Gault) 59.1 BUN/Creatinine Ratio 32 (6-20) H Glucose Level 88 mg/dL (70-99) Calcium Level 8.9 mg/dL (8.5-10.1) Total Bilirubin 0.3 mg/dL (0.2-1.0) Aspartate Amino Transferase (AST) 16 U/L (15-37) Alanine Aminotransferase (ALT) 13 U/L (14-59) L Alkaline Phosphatase 77 U/L (46-116) Total Protein 6.0 g/dL (6.4-8.2) L Albumin 2.9 g/dL (3.4-5.0) L Albumin/Globulin Ratio 0.9 (1.0-1.7) L Current Medications: Meds: Current Medications Medications (Trade) Dose Ordered Sig/Mickey Route PRN Reason Start Time Stop Time Status Last Admin Dose Admin Polyethylene Glycol (miraLAX) 17 gm DAILY PO 05/03/19 09:00 05/03/19 09:24 I have reviewed the current psychotropics carefully including drug interactions. Risk benefit ratio favors no change other than as noted in my dictated progress note. Diagnosis: Problems: (1) Major depressive disorder, recurrent episode (2) Mild cognitive disorder (3) Dementia, vascular, with depression (4) Bipolar disorder with depression (5) Major neurocognitive disorder HECTOR AL MD May 03, 2019 21:29
--- NOTE | 2019-05-03 21:38 | NUR ---
Patient is located in the day room on assumption of care. She is anxious, disorganized. Compliant with assessments and medications taken whole. No agitation. Denies any pain or discomfort. Denies SI.
[2019-05-03] MEDS ORDERED: NEOMY/BACITR/POLYMYXIN OINT PACKET. TP ONE (22:06)
[2019-05-04 05:05] VITALS: BP 108/63
[2019-05-04] MEDS: DRONABINOL 2.5 MG CAPSULE PO SCH ×3 (07:00→17:14)
[2019-05-04] MEDS: METOCLOPRAMIDE 5 MG TABLET PO SCH ×4 (07:30→19:57)
[2019-05-04] MEDS: ASPIRIN ENTERIC COATED 325 MG TABLET.DR. PO SCH (08:00)
--- NOTE | 2019-05-04 08:44 | PN ---
DATE: 05/03/2019 PSYCHIATRIC PROGRESS NOTE This late entry 05/03/2019 covers elements not covered in my initial note. SUBJECTIVE: I met with the patient evening of 05/03/2019. Per ROSE MARY Purvis, the patient slept 6-1/2 hours previous night. She has been anxious. Appetite is poor. Gets more anxious at bedtime in the evening. REVIEW OF SYSTEMS: Ambulation impaired with walker. No CV, , PULMONARY, EYE system symptoms on review. MENTAL STATUS EXAM: Oriented to herself and situation. Speech has some latency, coherent. Abstraction fair, computation impaired, language function intact, attention span short. Mood and affect still withdrawn. LABORATORY DATA: Reviewed. IMPRESSION: Unchanged from initial note. PLAN: The patient did well on Depakote as a mood stabilizer per the daughter. This would be consistent with her diagnosis of bipolar disorder; however, the patient was unable to tolerate the Depakote. We had to stop it and we will go ahead and start her on Trileptal 150 mg 9 a.m., 5:00 p.m. as a mood stabilizer. Continue rest of the psychotropics unchanged from initial note. MAN Hector AL MD DR: RENO/angelic JOB#: [id number] / [id number]
--- NOTE | 2019-05-04 08:55 | PN ---
DATE: 05/02/2019 PSYCHIATRIC PROGRESS NOTE This late entry 05/02/2019 covers the elements not covered in my initial note. SUBJECTIVE: I met with the patient evening of 05/02/2019 and staffed a treatment team meeting earlier in the day. The patient's daughter, Eliseo, attended the treatment team meeting at length. Overall, sleeping about 6 hours, appetite 25%. The patient has been accepted at [facility] [place]. She has been less anxious. Daughter states she felt the patient did better on Depakote; however, the patient was complaining of sedation, she did have a fall and we discontinued it. Appetite remains poor, gradually increase the Latuda as a mood stabilizer. REVIEW OF SYSTEMS: Ambulation impaired with walker. No CV, , pulmonary, eye system symptoms on review. MENTAL STATUS EXAM: Oriented to herself and situation. Speech is coherent, has some latency. Abstraction fair, computation impaired, language function intact. Mood and affect somewhat anxious, labile, but improved. LABORATORY DATA: Reviewed. IMPRESSION: Unchanged from initial note. PLAN: No change from initial note. HECTOR AL MD DR: RENO/angelic JOB#: [id number] / [id number]
[2019-05-04] MEDS: FAMOTIDINE 20 MG TABLET PO SCH (09:00)
[2019-05-04] MEDS: MEMANTINE 10 MG TABLET. PO SCH ×2 (09:00→19:54)
[2019-05-04] MEDS: MULTIVITAMIN with MINERAL TABLET. PO SCH (09:00)
[2019-05-04] MEDS: CHOLECALCIFEROL (VITAMIN D3) 1,000 UNIT TABLET PO SCH (09:00)
[2019-05-04] MEDS: GLUCOSAMINE/CHOND 500/400MG CAPSULE PO SCH ×2 (09:00→19:54)
[2019-05-04] MEDS: RIVASTIGMINE 9.5MG PATCH. TD SCH (09:00)
[2019-05-04] MEDS: LURASIDONE 40 MG TABLET. PO SCH ×2 (09:00→19:54)
[2019-05-04] MEDS: ATORVASTATIN CALCIUM 20 MG TABLET PO SCH (09:00)
[2019-05-04] MEDS: DOCUSATE SODIUM 100 MG CAPSULE PO SCH ×2 (09:00→19:54)
[2019-05-04] MEDS: OXcarbazepine 150 MG TABLET. PO SCH ×2 (09:00→17:14)
[2019-05-04] MEDS: amLODIPine BESYLATE 5 MG TABLET PO SCH (09:00)
[2019-05-04] MEDS: CALCIUM CARB/VIT D3 500/200 TABLET PO SCH (09:00)
[2019-05-04] MEDS: OXYBUTYNIN CHLORIDE 5 MG TABLET PO SCH ×2 (09:00→19:54)
[2019-05-04] MEDS: POLYETHYLENE GLYCOL 3350 17 GM PACKET. PO SCH (09:00)
--- NOTE | 2019-05-04 12:04 | NUR ---
downtime medication administration form used for am medication
--- NOTE | 2019-05-04 12:09 | NUR ---
Pt is anxious but redirectable. No agitation, no aggression, no hallucinations, or delusions noted. She is compliant with her medication and assessment.
[2019-05-04 16:26] VITALS: BP 124/79
[2019-05-04] MEDS: MIRTAZAPINE 15 MG TABLET PO SCH (19:54)
[2019-05-04] MEDS: MELATONIN 3 MG TABLET PO SCH (19:54)
--- NOTE | 2019-05-04 21:24 | PN ---
DATE: 05/04/2019 SUBJECTIVE: The patient was seen today, met with the staff, chart reviewed and also covering for Dr. Ruelas. Staff reports the patient continues to be angry, increased anxiety, refusing to eat or drink. Also very paranoid and suspicious. The patient also resistive to care, PHYSICAL EXAMINATION: VITAL SIGNS: Temperature 97.6, blood pressure 108/63, pulse 66, respirations 20, O2 sat 97%. GENERAL: Slept about 7 hours last night. The patient's appetite decreased. LABORATORY DATA: The patient's lab reviewed. Her hemoglobin 10.7. The patient's sodium was 149, potassium 3.4. MEDICATIONS: The patient's current medications include Trileptal 150 mg b.i.d., Latuda 40 mg at night and 20 mg daily, Luvox 50 mg daily, mirtazapine 15 mg at night, Exelon patch 1 daily, melatonin 6 mg at night, Namenda 10 mg b.i.d. The patient is also on olanzapine 2.5 mg q. 2 hours p.r.n. The patient is not having any side effects to medications. ASSESSMENT: Major depressive disorder, recurrent; mild cognitive disorder. PLAN: Continue with the treatment plan. LENGTH OF STAY: 5-7 days. JENNIFER ORTIZ MD DR: ALESSANDRA/angelic JOB#: [id number] / [id number]
--- NOTE | 2019-05-05 02:58 | NUR ---
pt took Hs meds with encouragement. Went to bed without c/o.
[2019-05-05 05:24] VITALS: BP 128/71
[2019-05-05] MEDS: DRONABINOL 2.5 MG CAPSULE PO SCH ×3 (05:24→17:22)
[2019-05-05] MEDS: ASPIRIN ENTERIC COATED 325 MG TABLET.DR. PO SCH (09:31)
[2019-05-05] MEDS: DOCUSATE SODIUM 100 MG CAPSULE PO SCH ×2 (09:31→20:11)
[2019-05-05] MEDS: METOCLOPRAMIDE 5 MG TABLET PO SCH ×4 (09:31→20:10)
[2019-05-05] MEDS: OXYBUTYNIN CHLORIDE 5 MG TABLET PO SCH ×2 (09:32→20:08)
[2019-05-05] MEDS: GLUCOSAMINE/CHOND 500/400MG CAPSULE PO SCH ×2 (09:32→20:09)
[2019-05-05] MEDS: LURASIDONE 40 MG TABLET. PO SCH ×2 (09:32→20:11)
[2019-05-05] MEDS: POLYETHYLENE GLYCOL 3350 17 GM PACKET. PO SCH (09:33)
[2019-05-05] MEDS: ATORVASTATIN CALCIUM 20 MG TABLET PO SCH (09:33)
[2019-05-05] MEDS: MEMANTINE 10 MG TABLET. PO SCH ×2 (09:33→20:10)
[2019-05-05] MEDS: RIVASTIGMINE 9.5MG PATCH. TD SCH (09:34)
[2019-05-05] MEDS: MULTIVITAMIN with MINERAL TABLET. PO SCH (09:34)
[2019-05-05] MEDS: CALCIUM CARB/VIT D3 500/200 TABLET PO SCH (09:34)
[2019-05-05] MEDS: CHOLECALCIFEROL (VITAMIN D3) 1,000 UNIT TABLET PO SCH (09:34)
[2019-05-05] MEDS: amLODIPine BESYLATE 5 MG TABLET PO SCH (09:34)
[2019-05-05] MEDS: FAMOTIDINE 20 MG TABLET PO SCH (09:34)
[2019-05-05] MEDS: OXcarbazepine 150 MG TABLET. PO SCH ×2 (09:36→17:22)
--- NOTE | 2019-05-05 10:17 | NUR ---
No agitation, no aggression, no hallucinations, or delusions noted. She is compliant with her medication and assessment. Pt is anxious but redirectable.
[2019-05-05] MEDS: ACETAMINOPHEN 325 MG TABLET PO PRN (12:18)
--- NOTE | 2019-05-05 13:58 | PN ---
DATE: 05/05/2019 SUBJECTIVE: The patient was seen today, met with the staff, chart reviewed and also covering for Dr. Ruelas. Staff reports increased anxiety. Otherwise, no major behavior problems and has been compliant with medications. OBSERVATION: VITAL SIGNS: Temperature 97.8, blood pressure 138/71, pulse 74, respirations 16, O2 sat 96%. GENERAL: Slept about 8 hours last night. The patient's appetite improved. The patient is not having any major physical complaints. The patient denies of any side effects to the medications. CURRENT MEDICATIONS: The patient is currently on Trileptal 150 mg b.i.d. p.o., Latuda 40 mg p.m. p.o. and 20 mg daily, Luvox 50 mg daily, mirtazapine 15 mg at night, Exelon patch daily, melatonin 6 mg at night, Namenda 10 mg b.i.d. The patient is also on olanzapine 2.5 mg q. 2 hours p.r.n. ASSESSMENT: 1. Major depressive disorder, recurrent. 2. Mild cognitive disorder. PLAN: To continue with the treatment. LENGTH OF STAY: 5-7 days. JENNIFER ORTIZ MD DR: ALESSANDRA/angelic JOB#: [id number] / [id number]
[2019-05-05 15:37] VITALS: BP 108/71
[2019-05-05] MEDS: MELATONIN 3 MG TABLET PO SCH (20:09)
[2019-05-05] MEDS: MIRTAZAPINE 15 MG TABLET PO SCH (20:11)
[2019-05-06] MEDS: DRONABINOL 2.5 MG CAPSULE PO SCH ×3 (05:30→17:35)
[2019-05-06 05:58] VITALS: BP 111/57
[2019-05-06] MEDS: OXYBUTYNIN CHLORIDE 5 MG TABLET PO SCH ×2 (09:42→20:35)
[2019-05-06] MEDS: DOCUSATE SODIUM 100 MG CAPSULE PO SCH ×2 (09:42→20:35)
[2019-05-06] MEDS: METOCLOPRAMIDE 5 MG TABLET PO SCH ×4 (09:42→20:35)
[2019-05-06] MEDS: ASPIRIN ENTERIC COATED 325 MG TABLET.DR. PO SCH (09:42)
[2019-05-06] MEDS: LURASIDONE 40 MG TABLET. PO SCH ×2 (09:43→20:33)
[2019-05-06] MEDS: GLUCOSAMINE/CHOND 500/400MG CAPSULE PO SCH ×2 (09:43→20:34)
[2019-05-06] MEDS: OXcarbazepine 150 MG TABLET. PO SCH ×2 (09:44→17:35)
[2019-05-06] MEDS: MULTIVITAMIN with MINERAL TABLET. PO SCH (09:44)
[2019-05-06] MEDS: POLYETHYLENE GLYCOL 3350 17 GM PACKET. PO SCH (09:44)
[2019-05-06] MEDS: amLODIPine BESYLATE 5 MG TABLET PO SCH (09:44)
[2019-05-06] MEDS: ATORVASTATIN CALCIUM 20 MG TABLET PO SCH (09:44)
[2019-05-06] MEDS: MEMANTINE 10 MG TABLET. PO SCH ×2 (09:44→20:35)
[2019-05-06] MEDS: FAMOTIDINE 20 MG TABLET PO SCH (09:44)
[2019-05-06] MEDS: CALCIUM CARB/VIT D3 500/200 TABLET PO SCH (09:44)
[2019-05-06] MEDS: RIVASTIGMINE 9.5MG PATCH. TD SCH (09:45)
[2019-05-06] MEDS: CHOLECALCIFEROL (VITAMIN D3) 1,000 UNIT TABLET PO SCH (09:45)
--- NOTE | 2019-05-06 11:37 | NUR ---
[facility] Social Work Discharge Planning Form Patient Name BRYON ODELL Admit Date: 05/05/18 DISCHARGE PLAN Discharge Destination: [facility] ([facility]) Care Assessment: Completed Level II Assessment: Completed Transportation: Secure transport to pick pt up between 10 and 1030. Special Instructions/Notes: Please fax discharge orders and medication list to the fax numbers listed below. DISCHARGE TO FACILITY Facility: [facility] Address: [address] [place] [address]; [place] [address] Contact Name: Jennifer Morton; Manager Commodities: Contact Name: Gosia Maldonado; Health and Visual Coordinator: PCP: Dr. Raffy Main
--- NOTE | 2019-05-06 16:15 | NUR ---
Wound Care Wound care consult for R 2nd toe wound. Pt has abrasions on R great toe, R 2nd toe and R 5th toes from overgrown/sharp nails. Cleansed wounds and dressed great toe and 5th toe with Vaseline gauze and foam, recommend to change every 3 days. Right 2nd toe is reddened with slough covered wound, dressed with Medihoney alginate and foam dressing, recommend to change every 3 days. Recommend patient see gun tester and wound care after discharge tomorrow. No other wounds noted on full skin inspection. Pt educated on PU prevention, will need reinforcement due to mental status.
[2019-05-06 16:34] VITALS: BP 110/62
[2019-05-06 20:19] LABS: CALCIUM 9.3 mg/dL (8.5-10.1); CREATININE 1.1 mg/dL (0.6-1.0); GFR 46.9; POTASSIUM 4.1 mmol/L (3.5-5.1)
[2019-05-06] MEDS: MELATONIN 3 MG TABLET PO SCH (20:35)
[2019-05-06] MEDS: MIRTAZAPINE 15 MG TABLET PO SCH (20:35)
[2019-05-06] MEDS: traZODone 50 MG TABLET. PO PRN (21:27)
--- NOTE | 2019-05-06 21:51 | PDOC ---
Exam Note: Sony Note: Please also refer to the separate dictated note~for this date of service dictated separately.~Patient seen individually. Discussed the patient with Nursing staff reviewed the chart.~Reviewed interim history and current functioning. Reviewed vital signs,~Labs/ Radiology~and current medications noted below. Continue current treatment with the changes noted in the dictated addendum note Assessment: Vital Signs/I&O: Vital Signs Date Time Temp Pulse Resp B/P (MAP) Pulse Ox O2 Delivery O2 Flow Rate FiO2 05/06/19 16:34 98.3 78 18 110/62 (78) 99 05/05/19 05:24 Room Air I & O 05/05/19 05/05/19 05/06/19 15:00 23:00 07:00 Intake Total 240 ml 360 ml 240 ml Balance 240 ml 360 ml 240 ml Labs: Laboratory Tests Test 05/06/19 19:52 Sodium Level 146 mmol/L (136-145) H Potassium Level 4.1 mmol/L (3.5-5.1) Chloride Level 108 mmol/L (98-107) H Carbon Dioxide Level 32 mmol/L (21-32) Anion Gap 6 (6-14) Blood Urea Nitrogen 26 mg/dL (7-20) H Creatinine 1.1 mg/dL (0.6-1.0) H Estimated GFR (Cockcroft-Gault) 46.9 Glucose Level 113 mg/dL (70-99) H Calcium Level 9.3 mg/dL (8.5-10.1) Current Medications: I have reviewed the current psychotropics carefully including drug interactions. Risk benefit ratio favors no change other than as noted in my dictated progress note. Diagnosis: Problems: (1) Major depressive disorder, recurrent episode (2) Mild cognitive disorder (3) Dementia, vascular, with depression (4) Bipolar disorder with depression (5) Major neurocognitive disorder HECTOR AL MD May 06, 2019 21:51
--- NOTE | 2019-05-06 22:24 | NUR ---
Patient is located in the day room on assumption of care. She is anxious, disorganized. Compliant with assessments and medications taken whole. No agitation. Requested PRN Trazadone, which she received at 2130. Denies any pain or discomfort. Denies SI.
[2019-05-06] MEDS ORDERED: ACET325T21 PO (22:57)
[2019-05-06] MEDS ORDERED: DOCU100C28 PO (22:58)
[2019-05-06] MEDS ORDERED: DRON10CA5 PO (22:59)
[2019-05-06] MEDS ORDERED: FAMO20TA5 PO (23:00)
[2019-05-06] MEDS ORDERED: LURA20TA PO (23:02)
[2019-05-06] MEDS ORDERED: LURA40TA PO (23:03)
[2019-05-06] MEDS ORDERED: MAG-115 PO (23:04)
[2019-05-06] MEDS ORDERED: MAGN296S4 PO (23:05)
[2019-05-06] MEDS ORDERED: MAGN24003 PO (23:06)
[2019-05-06] MEDS ORDERED: METH57CR17 TP (23:07)
[2019-05-06] MEDS ORDERED: METO5TAB55 PO (23:09)
[2019-05-06] MEDS ORDERED: MIRT15TA3 PO (23:10)
[2019-05-06] MEDS ORDERED: ONDA4TAB12 PO (23:12)
[2019-05-06] MEDS ORDERED: OXCA150T19 PO (23:13)
[2019-05-06] MEDS ORDERED: POLY17PO5 PO (23:14)
[2019-05-06] MEDS ORDERED: FLUV50TA2 PO (23:15)
[2019-05-06] MEDS ORDERED: TRAM50TA PO (23:16)
[2019-05-06] MEDS ORDERED: TRAZ-120 PO (23:17)
[2019-05-07 05:48] VITALS: BP 98/58
[2019-05-07] MEDS: DRONABINOL 2.5 MG CAPSULE PO SCH (05:59)
[2019-05-07] MEDS: METOCLOPRAMIDE 5 MG TABLET PO SCH (07:30)
[2019-05-07] MEDS: ASPIRIN ENTERIC COATED 325 MG TABLET.DR. PO SCH (08:00)
[2019-05-07 09:00] VITALS: BP 98/58
[2019-05-07] MEDS: MEMANTINE 10 MG TABLET. PO SCH (09:00)
[2019-05-07] MEDS: RIVASTIGMINE 9.5MG PATCH. TD SCH (09:00)
[2019-05-07] MEDS: CHOLECALCIFEROL (VITAMIN D3) 1,000 UNIT TABLET PO SCH (09:00)
[2019-05-07] MEDS: OXYBUTYNIN CHLORIDE 5 MG TABLET PO SCH (09:00)
[2019-05-07] MEDS: LURASIDONE 40 MG TABLET. PO SCH (09:00)
[2019-05-07] MEDS: OXcarbazepine 150 MG TABLET. PO SCH (09:00)
[2019-05-07] MEDS: amLODIPine BESYLATE 5 MG TABLET PO SCH (09:00)
[2019-05-07] MEDS: POLYETHYLENE GLYCOL 3350 17 GM PACKET. PO SCH (09:00)
[2019-05-07] MEDS: DOCUSATE SODIUM 100 MG CAPSULE PO SCH (09:00)
[2019-05-07] MEDS: ATORVASTATIN CALCIUM 20 MG TABLET PO SCH (09:00)
[2019-05-07] MEDS: MULTIVITAMIN with MINERAL TABLET. PO SCH (09:00)
[2019-05-07] MEDS: CALCIUM CARB/VIT D3 500/200 TABLET PO SCH (09:00)
[2019-05-07] MEDS: GLUCOSAMINE/CHOND 500/400MG CAPSULE PO SCH (09:00)
[2019-05-07] MEDS: FAMOTIDINE 20 MG TABLET PO SCH (09:00)
--- NOTE | 2019-05-07 11:14 | NUR ---
Transition Record was faxed to follow-up provider with the following elements: Reason for admission, procedures, tests, principal diagnosis, pending studies, patient instructions, 12/09 contact information for unit, phone number to obtain pending test results, plan for follow-up care, physician follow-up, advanced directive information, and medication list with dose, duration and instructions. This information was included in the following documents: History and physical, lab results, study results, progress notes, social work planning form, DC instruction form, patient visit summary, and medication reconciliation form. Date & time record faxed: 05/07/19 @1105 Record faxed to: Max Mantilla Record discussed with/ report given to: ROSE MARY Lakhani
--- NOTE | 2019-05-07 18:39 | DS ---
DATE OF DISCHARGE: 05/07/2019 This note covers elements not covered in my initial note of 05/07/2019. REASON FOR ADMISSION: Please refer to the admission history for details. Briefly, the patient is an 89-year-old female referred to us from [facility] where she presented from [facility] on account of worsening symptoms of depression within the context of her bipolar disorder. The patient had made statement that she would jump out of a car or slit her wrist to end her life. She was having panic attacks, was agitated, impulsive, not eating, losing weight. She had failed outpatient psychiatric interventions resulting in this referral. SIGNIFICANT FINDINGS AND CLINICAL COURSE: Following admission, the patient was seen daily individually by myself from a psychiatric standpoint by myself and medically by Dr. Donovan. She was extremely anxious with marked mood swings, irritability, lability and poor appetite. Multiple adjustments were made in her psychotropics. Initially, she did better on Depakote. Then, was overly sedated and this was discontinued. She finally seemed to do well on a combination of Exelon patch 9.5 mg a day, Namenda 10 mg b.i.d., melatonin 6 mg at bedtime, Luvox 50 mg daily, trazodone 50 mg at bedtime p.r.n. may repeat x 1, Zyprexa p.r.n., Remeron 15 mg at bedtime, Latuda 20 mg daily, 40 mg at bedtime, Marinol 2.5 mg t.i.d. half hour before meals, Trileptal 150 mg twice a day prior to discharge on 05/07/2019. REVIEW OF SYSTEMS: Ambulation impaired with walker. No CV, , pulmonary, eye system symptoms on review. MENTAL STATUS EXAM: Oriented to herself and situation. Speech coherent, less pressured. Abstraction fair, computation impaired, language function intact, attention span short. Mood and affect less labile. LABORATORY DATA: Reviewed. CONDITION AT DISCHARGE: Improved. No suicidal ideation at discharge. FINAL DIAGNOSES: Bipolar disorder, depressed, in partial remission; anxiety disorder, unspecified; mild cognitive impairment. Rest unchanged from admission. DISCHARGE MEDICATIONS: Please refer to the MRAD. DISCHARGE INSTRUCTIONS: Psychiatric and medical followup at the snf. Time for discharge day management greater than 30 minutes. MAN Hector AL MD DR: Nadiya JOB#: [id number] / [id number]
--- NOTE | 2019-05-07 19:23 | PN ---
DATE: 05/06/2019 PSYCHIATRIC PROGRESS NOTE This late entry 05/06/2019 covers elements not covered in my initial note. SUBJECTIVE: I met with the patient evening of 05/06/2019. Overall, per nursing report, the patient has done better on 05/06/2019. Her appetite is better as well and she states she is less anxious. REVIEW OF SYSTEMS: Ambulation impaired with walker. No CV, , pulmonary, eye system symptoms on review. MENTAL STATUS EXAM: Oriented to herself and situation. Speech is coherent, less pressured. Abstraction fair, computation impaired, language function intact, attention span short. Mood and affect is improved. LABORATORY DATA: Reviewed. IMPRESSION: Unchanged from initial note. PLAN: No change from initial note. HECTOR AL MD DR: RENO/angelic JOB#: [id number] / [id number]
--- NOTE | 2019-05-07 21:36 | PDOC ---
Exam Note: Sony Note: Please also refer to the separate dictated note~for this date of service dictated separately.~Patient seen individually. Discussed the patient with Nursing staff reviewed the chart.~Reviewed interim history and current functioning. Reviewed vital signs,~Labs/ Radiology~and current medications noted below. Continue current treatment with the changes noted in the dictated addendum note Assessment: Vital Signs/I&O: Vital Signs Date Time Temp Pulse Resp B/P (MAP) Pulse Ox O2 Delivery O2 Flow Rate FiO2 05/07/19 09:00 65 98/58 05/07/19 05:48 98.3 18 94 Room Air I & O 05/06/19 05/06/19 05/07/19 15:00 23:00 07:00 Intake Total 240 ml 360 ml Balance 240 ml 360 ml Current Medications: I have reviewed the current psychotropics carefully including drug interactions. Risk benefit ratio favors no change other than as noted in my dictated progress note. Diagnosis: Problems: (1) Major depressive disorder, recurrent episode (2) Mild cognitive disorder (3) Dementia, vascular, with depression (4) Bipolar disorder with depression (5) Major neurocognitive disorder HECTOR AL MD May 07, 2019 21:36
--- NOTE | 2019-05-10 22:04 | NUR ---
IP: Notified TAISHA Aceves about potential exposure to COVID-19 virus. Discussed recommendations regarding 2 week quarantine, temp monitoring, respiratory monitoring and notifying the local health dept.
--- NOTE | 2019-05-11 10:19 | NUR ---
SW contacted pt dtr/Eliseo WILSON to go over the policy and procedure of the unit based on having a positive COVOID-19. Pt dtr was appreciative of being notified and would like that SW contact [facility] to inform them of this as well.
== END 2019-05-07 11:00 | disposition home or self-care (01) | DRG 885 ==
LOC: GEROPSY 19:09
PROVIDERS: ADMIT Psychiatry & Neurology Psychiatry; ATTEND Psychiatry & Neurology Psychiatry
DX: F31.64 Bipolar disorder, current episode mixed, severe, with psychotic features (principal); S32.592A Other specified fracture of left pubis, initial encounter for closed fracture; G30.9 Alzheimer's disease, unspecified; F02.80 Dementia in other diseases classified elsewhere, unspecified severity, without behavioral disturbance, psychotic disturbance, mood disturbance, and anxiety; F01.50 Vascular dementia, unspecified severity, without behavioral disturbance, psychotic disturbance, mood disturbance, and anxiety; E78.5 Hyperlipidemia, unspecified; Z66 Do not resuscitate; I10 Essential (primary) hypertension; G47.00 Insomnia, unspecified; F42.9 Obsessive-compulsive disorder, unspecified; X58.XXXA Exposure to other specified factors, initial encounter; F41.0 Panic disorder [episodic paroxysmal anxiety]; F41.1 Generalized anxiety disorder; M15.9 Polyosteoarthritis, unspecified; Z79.899 Other long term (current) drug therapy; Z98.41 Cataract extraction status, right eye; Z98.42 Cataract extraction status, left eye; Z88.6 Allergy status to analgesic agent; Z88.5 Allergy status to narcotic agent; Z88.8 Allergy status to other drugs, medicaments and biological substances; Y93.89 Activity, other specified; Y92.89 Other specified places as the place of occurrence of the external cause; Y99.8 Other external cause status
CPT/HCPCS: 36415; 71046; 73030; 73090; 73521; 80048; 80053; 80061; 80164; 81001; 82140; 82306; 82607; 83036; 83540; 83550; 83605; 83735; 84436; 84443; 84480; 85025; 86592; 87086; J8597; Q0162; Q0167; 92610; 97110; 97116; 97530; 97535